=== PATIENT | male | born 1945 | race Caucasian/White ===

== ENCOUNTER → 2016-04-19 | Day surgery (SDC) | payer MEDICARE, OTHER ==
[~2016-04-19] VITALS: Ht 177.8 cm; Wt 95.3 kg
[~2016-04-19] MED LIST: ACETAMINOPHEN 325 MG TAB PO PRN; ACETYLCHOLINE OPHTH SOLN 1% 2ML As Ordered ONE; ACTO30TA7 PO; ASPI1TAB PO; ASPI81TA60 PO; AUGM875T27 PO; AcetaZOLAMIDE 500 MG ER CAP PO ONE; BALANCED SALT IRRIGATION SOL 500ML GLASS BOTTLE (FOR OR EYE COMPOUND) IR ONE; BSS with VANC/TOB/EPI for EYE CASES IR ONE; CORT10TA PO; COZA50TA PO; CRES40TA PO; CYCLOPENTOLATE 2% OPHTH SOLN OD ONE; EPINEPHrine INJ 1 MG/ML 1ML VIAL/AMP IR ONE; HEALON DUET (HEALON 10MG/ML 0.55ML & HEALON ENDOCOAT 30MG/ML 0.85ML) As Ordered ONE; HEALON DUET (HEALON 10MG/ML 0.55ML & HEALON ENDOCOAT 30MG/ML 0.85ML) XX ONE; JANU100T PO; JARD1TAB PO; KETOROLAC 0.5% OPHTH SOLN OD ONE; LIDOCAINE 1% SDV 5 ML VIAL As Ordered ONE; LIDOCAINE 1% SDV 5 ML VIAL XX ONE; LIDOCAINE 4% INJ 5 ML AMP OU ONE; METF500T4 PO; MIDAZOLAM INJ 2 MG/2 ML VIAL (J2250) As Ordered ONE; MOXIFLOXACIN IN BSS 0.25MG/0.25ML INTRACAMERAL INJ (OR EYE ONLY)(J2280) As Ordered ONE; MOXIFLOXACIN IN BSS 0.25MG/0.25ML INTRACAMERAL INJ (OR EYE ONLY)(J2280) ICAM ONE; NEXI20CA PO; NITR4TASL SL; OFLOXACIN 0.3 % (OCUFLOX) OPTH SOL 5ML OD ONE; PERC5TAB6 PO; PHENYLEPHRINE 2.5% OPHTH SOL 2ML OD ONE; POVIDONE-IODINE 5% OPHTH PREP SOL 30ML As Ordered ONE; PROPARACAINE 0.5% OPHTH SOL 15ML OD PRN; SYNT175T2 PO; TEST5GEL2 TD; TOBRAMYCIN INJ 80 MG/2 ML VIAL (J3260) XX ONE; TRIAMCINOLONE PRES FR 40 MG/ML 1ML(TRIESENCE)(OR EYE ONLY)(J3300 PER 1MG) As Ordered ONE; TRIAMCINOLONE PRES FR 40 MG/ML 1ML(TRIESENCE)(OR EYE ONLY)(J3300 PER 1MG) IO ONE; TRIMETHOBENZAMIDE 300 MG CAP PO PRN; TROPICAMIDE 1% OPHTH SOLN 2 ML OD ONE; VANCOMYCIN 1000 MG/20 ML VIAL (J3370) XX ONE; VITA500046 PO; ZETI10TA2 PO; ZOLO50TA PO; [UNRECOGNIZED DRUG - CODE] BUC; fentaNYL 100 MCG/2 ML INJECTION (J3010) As Ordered ONE
[2016-04-19 09:38] VITALS: BP 132/80
== END | disposition home or self-care (01) ==
LOC: M SDC 06:21
PROVIDERS: ATTEND Ophthalmology
DX: H26.9 Unspecified cataract (principal); I25.10 Atherosclerotic heart disease of native coronary artery without angina pectoris; Z95.5 Presence of coronary angioplasty implant and graft; I11.9 Hypertensive heart disease without heart failure; I49.5 Sick sinus syndrome; I35.8 Other nonrheumatic aortic valve disorders; I34.8 Other nonrheumatic mitral valve disorders; E78.00 Pure hypercholesterolemia, unspecified; E66.8 Other obesity; G47.33 Obstructive sleep apnea (adult) (pediatric); E11.9 Type 2 diabetes mellitus without complications; E03.9 Hypothyroidism, unspecified; F32.9 Major depressive disorder, single episode, unspecified; F41.9 Anxiety disorder, unspecified; E23.0 Hypopituitarism; Z79.899 Other long term (current) drug therapy; Z79.82 Long term (current) use of aspirin; F17.220 Nicotine dependence, chewing tobacco, uncomplicated; Z88.5 Allergy status to narcotic agent
CPT/HCPCS: 66984; J2250; J2280; J3010; J3260; J3300; J3370; V2632

== ENCOUNTER 2016-04-25 09:06 | Day surgery (SDC) | payer MEDICARE, OTHER ==
[~2016-04-25] VITALS: Ht 177.8 cm; Wt 95.0 kg
[~2016-04-25 09:06] MED LIST changes: -ACETYLCHOLINE OPHTH SOLN 1% 2ML As Ordered ONE; -AcetaZOLAMIDE 500 MG ER CAP PO ONE; -BALANCED SALT IRRIGATION SOL 500ML GLASS BOTTLE (FOR OR EYE COMPOUND) IR ONE; -CYCLOPENTOLATE 2% OPHTH SOLN OD ONE; +CYCLOPENTOLATE 2% OPHTH SOLN OS ONE; -EPINEPHrine INJ 1 MG/ML 1ML VIAL/AMP IR ONE; -KETOROLAC 0.5% OPHTH SOLN OD ONE; -LIDOCAINE 1% SDV 5 ML VIAL XX ONE; -MIDAZOLAM INJ 2 MG/2 ML VIAL (J2250) As Ordered ONE; -OFLOXACIN 0.3 % (OCUFLOX) OPTH SOL 5ML OD ONE; +OFLOXACIN 0.3 % (OCUFLOX) OPTH SOL 5ML OS ONE; -PHENYLEPHRINE 2.5% OPHTH SOL 2ML OD ONE; +PHENYLEPHRINE 2.5% OPHTH SOL 2ML OS ONE; -PROPARACAINE 0.5% OPHTH SOL 15ML OD PRN; +PROPARACAINE 0.5% OPHTH SOL 15ML OS PRN; -TOBRAMYCIN INJ 80 MG/2 ML VIAL (J3260) XX ONE; -TRIMETHOBENZAMIDE 300 MG CAP PO PRN; -TROPICAMIDE 1% OPHTH SOLN 2 ML OD ONE; +TROPICAMIDE 1% OPHTH SOLN 2 ML OS ONE; -VANCOMYCIN 1000 MG/20 ML VIAL (J3370) XX ONE; -fentaNYL 100 MCG/2 ML INJECTION (J3010) As Ordered ONE
[2016-04-25] MEDS ORDERED: D5W/0.2% SODIUM CHLORIDE 250 ML IV SCH (09:30)
[2016-04-25] MEDS ORDERED: MIDAZOLAM INJ 2 MG/2 ML VIAL (J2250) As Ordered ONE (09:35)
[2016-04-25] MEDS ORDERED: fentaNYL 100 MCG/2 ML INJECTION (J3010) As Ordered ONE (10:00)
[2016-04-25] MEDS ORDERED: KETOROLAC 0.5% OPHTH SOLN OS ONE (10:30)
[2016-04-25] MEDS ORDERED: AcetaZOLAMIDE 500 MG ER CAP PO ONE (10:30)
[2016-04-25] MEDS ORDERED: ONDANSETRON 4MG/2ML VIAL (J2405) IV PRN (10:30)
[2016-04-25] MEDS ORDERED: D5W/0.2% SODIUM CHLORIDE 1,000 ML IV SCH (10:30)
[2016-04-25] MEDS ORDERED: TRIMETHOBENZAMIDE 300 MG CAP PO PRN (10:30)
[2016-04-25 11:00] VITALS: BP 134/69
[2016-04-25] MEDS ORDERED: MOXIFLOXACIN IN BSS 0.25MG/0.25ML INTRACAMERAL INJ (OR EYE ONLY)(J2280) As Ordered ONE (11:01)
== END 2016-04-25 10:55 | disposition home or self-care (01) ==
LOC: M SDC 09:06
PROVIDERS: ATTEND Ophthalmology
DX: H26.9 Unspecified cataract (principal); I25.10 Atherosclerotic heart disease of native coronary artery without angina pectoris; Z95.5 Presence of coronary angioplasty implant and graft; I10 Essential (primary) hypertension; E11.9 Type 2 diabetes mellitus without complications; E03.9 Hypothyroidism, unspecified; G47.30 Sleep apnea, unspecified; F17.220 Nicotine dependence, chewing tobacco, uncomplicated; Z88.5 Allergy status to narcotic agent; Z79.899 Other long term (current) drug therapy; Z79.82 Long term (current) use of aspirin
CPT/HCPCS: 66984; J2250; J2280; J3010; J3300; V2632

== ENCOUNTER → 2016-12-19 | Outpatient (CLI) | payer MEDICARE, OTHER ==
[~2016-12-19] MED LIST changes: -ACETAMINOPHEN 325 MG TAB PO PRN; +ACTO30TA15 PO; -ACTO30TA7 PO; -AUGM875T27 PO; +AUGM875T28 PO; -BSS with VANC/TOB/EPI for EYE CASES IR ONE; -CYCLOPENTOLATE 2% OPHTH SOLN OS ONE; -HEALON DUET (HEALON 10MG/ML 0.55ML & HEALON ENDOCOAT 30MG/ML 0.85ML) As Ordered ONE; -HEALON DUET (HEALON 10MG/ML 0.55ML & HEALON ENDOCOAT 30MG/ML 0.85ML) XX ONE; -LIDOCAINE 1% SDV 5 ML VIAL As Ordered ONE; -LIDOCAINE 4% INJ 5 ML AMP OU ONE; -MOXIFLOXACIN IN BSS 0.25MG/0.25ML INTRACAMERAL INJ (OR EYE ONLY)(J2280) As Ordered ONE; -MOXIFLOXACIN IN BSS 0.25MG/0.25ML INTRACAMERAL INJ (OR EYE ONLY)(J2280) ICAM ONE; -OFLOXACIN 0.3 % (OCUFLOX) OPTH SOL 5ML OS ONE; +PERC5TAB12 PO; -PERC5TAB6 PO; -PHENYLEPHRINE 2.5% OPHTH SOL 2ML OS ONE; -POVIDONE-IODINE 5% OPHTH PREP SOL 30ML As Ordered ONE; -PROPARACAINE 0.5% OPHTH SOL 15ML OS PRN; -TRIAMCINOLONE PRES FR 40 MG/ML 1ML(TRIESENCE)(OR EYE ONLY)(J3300 PER 1MG) As Ordered ONE; -TRIAMCINOLONE PRES FR 40 MG/ML 1ML(TRIESENCE)(OR EYE ONLY)(J3300 PER 1MG) IO ONE; -TROPICAMIDE 1% OPHTH SOLN 2 ML OS ONE; -ZETI10TA2 PO; +ZETI10TA30 PO
--- NOTE | 2016-12-19 11:26 | REP ---
MR BRAIN WITHOUT AND WITH CONTRAST: HISTORY: Pituitary adenoma. CONTRAST: ProHance 8 mL. COMPARISON: 12/22/2015 Areas of increased signal intensity on T2-weighted images are present in the periventricular and subcortical white matter. This represents small vessel ischemic disease. There is no intraparenchymal hemorrhage, infarct, or midline shift. The ventricular system and cortical sulci are dilated consistent with minimal volume loss. There is no extracerebral collection. A pituitary adenoma with suprasellar extension is present. There is moderate homogeneous enhancement with contrast. The adenoma measures 3.5 cm in transverse x 3.1 cm in AP x 5.1 cm in cephalocaudal dimensions and is unchanged in size compared to the previous study. There is extension into the cavernous sinuses with encasement of the cavernous internal carotid arteries. There is extension into the sphenoid sinus and sphenoid bone. There is extension into the suprasellar cistern with marked compression of the optic chiasm. These findings are unchanged compared to the previous study. The ethmoid, maxillary, and frontal sinuses are clear. IMPRESSION: 1. Small vessel ischemic disease. 2. Minimal volume loss. 3. There has been no change in size of the pituitary adenoma compared to the previous study. Signed by Dawson Pritchard MD 12/19/2016 11:28 A
== END ==
LOC: M RAD 09:05
PROVIDERS: ATTEND Neurological Surgery
DX: D35.2 Benign neoplasm of pituitary gland (principal); I73.9 Peripheral vascular disease, unspecified; G93.9 Disorder of brain, unspecified
CPT/HCPCS: 70553; A9576

== ENCOUNTER → 2017-02-28 | Outpatient (CLI) | payer MEDICARE, OTHER ==
--- NOTE | 2017-02-28 09:18 | REP ---
Lumbar spine five views: Comparison is 07/10/2005. Vertebral body heights and alignment are normal. There is advanced degenerative intervertebral disc disease at L2-3 L3-4 that has significantly progressed. There is degenerative disc disease at L5 S1 that is unchanged. There is grade 1 anterolisthesis of L5, unchanged. No spondylolysis is identified. There is facet osteoarthritis throughout the lumbar spine. This has progressed. The sacroiliac articulations are unremarkable. There is mild scoliosis convex left. This is unchanged. Impression: Progressive degenerative disc disease at L2-3 L3-4. Stable degenerate disc disease at L5 S1. Degenerative grade 1 anterolisthesis of L5 without spondylolysis. Facet osteoarthritis. Signed by Maurice Poole MD 02/28/2017 09:05 A
== END ==
LOC: M RAD 08:26
PROVIDERS: ATTEND Family Medicine
DX: M51.36 Other intervertebral disc degeneration, lumbar region (principal); M51.37 Other intervertebral disc degeneration, lumbosacral region

== ENCOUNTER → 2017-07-17 | Outpatient (REF) | payer MEDICARE, OTHER | LOC: M LAB REF 09:56 | DX: D23.12 Other benign neoplasm of skin of left eyelid, including canthus (principal) | CPT/HCPCS: 88305 ==

== ENCOUNTER → 2018-04-08 | Outpatient (REF) | payer MEDICARE, OTHER ==
[2018-04-08 14:16] LABS: BLOOD UREA NITROGEN 20 MG/DL (7-18); CREATININE FOR GFR 1.09 MG/DL (0.70-1.30); GLOMERULAR FILTRATION RATE > 60.0 (>42)
== END ==
LOC: M LABNEURO 09:45
PROVIDERS: ATTEND Psychiatry & Neurology Neurology
DX: I10 Essential (primary) hypertension (principal)

== ENCOUNTER → 2018-04-26 | Outpatient (CLI) | payer MEDICARE, OTHER ==
[~2018-04-26] MED LIST changes: +PROHANCE 279.3MG/ML 15ML VIAL (A9576) As Ordered ONE; +PROHANCE 279.3MG/ML 5ML VIAL (A9576) As Ordered ONE
--- NOTE | 2018-04-26 13:56 | REP ---
MR BRAIN WITHOUT AND WITH CONTRAST: HISTORY: Pituitary adenoma. CONTRAST: ProHance 17 mL. COMPARISON: 12/22/2015 and 12/19/2016 Areas of increased signal intensity on T2-weighted images are present in the periventricular and subcortical white matter. This represents small vessel ischemic disease. There is no intraparenchymal hemorrhage, infarct, or midline shift. The ventricular system and cortical sulci are dilated consistent with minimal volume loss. There is no extracerebral collection. A pituitary adenoma is present. There is moderate homogeneous enhancement with contrast. The adenoma measures 3.5 cm in transverse x 3.1 cm in AP x 5.1 cm in cephalocaudal dimensions and is unchanged in size compared to the previous studies. There is extension into the cavernous sinuses with encasement of the cavernous internal carotid arteries. There is extension into the sphenoid sinus and sphenoid bone. There is suprasellar extension with marked compression of the optic chiasm. These findings are unchanged compared to the previous study. The ethmoid, maxillary and frontal sinuses are clear. IMPRESSION: 1. Small vessel ischemic disease. 2. Minimal volume loss. 3. There has been no change in size of the pituitary adenoma compared to the previous studies. Electronically Signed by Dawson Pritchard MD 04/26/2018 02:00 P
== END ==
LOC: M RAD 10:59
PROVIDERS: ATTEND Neurological Surgery
DX: D35.2 Benign neoplasm of pituitary gland (principal)
CPT/HCPCS: 70553; A9576

== ENCOUNTER → 2018-11-20 | Outpatient (CLI) | payer MEDICARE, OTHER ==
[~2018-11-20] MED LIST changes: -ASPI1TAB PO; +ASPI81TA26 PO; +METF-791 PO; -METF500T4 PO; -PROHANCE 279.3MG/ML 15ML VIAL (A9576) As Ordered ONE; -PROHANCE 279.3MG/ML 5ML VIAL (A9576) As Ordered ONE; +TEST25GE2 TD; -TEST5GEL2 TD; +ZETI10TA16 PO; -ZETI10TA30 PO
--- NOTE | 2018-11-20 11:57 | REP ---
MRI cervical spine without contrast: History: Rule out cervical spine stenosis. Neck pain and left shoulder pain. No comparison C-spine imaging. Technique: Sagittal and axial T1 and T2-weighted scans are acquired in the usual fashion with and without fat saturation. Sequences include spin echo, turbo spin-echo, and STIR imaging sequences. MRI findings: There is straightening of the normal cervical lordosis. There are advanced degenerative disc changes at each level from C4-5 through C6-7. There are reactive marrow changes about the C4-5 disc level. Axial and sagittal images at C4-5 demonstrate a 3 mm degenerative C4-5 spondylolisthesis due to advanced degenerative disc disease. There is diffuse disc bulging effacing the ventral subarachnoid space and flattening the ventral margin of the cord at this level. There is moderate central canal stenosis. Ligamentum flavum hypertrophy contributes to the spinal stenosis as well. No abnormal cord signal is seen. There is a large uncovertebral spurring developed on the right producing foraminal narrowing. Mild to moderate spurring is noted on the left. At C5-6, there is mild diffuse central disc bulging. Disc narrowing is seen. No cord compression is seen. At C6-7, there is diffuse posterior osteophytic ridging and disc bulging effacing the ventral margin of the thecal sac. No cord compression is seen. There is mild bilateral uncovertebral spurring at C6-7. The C7-T1 disc level shows uncovertebral spurring on the left. At C3-4, there is some facet hypertrophy and mild central disc bulging is present. Impression: Advanced degenerative spondylosis changes most pronounced at C4-5 where there is a 3 mm degenerative spondylolisthesis and where there is moderate central canal stenosis due to diffuse disc bulging and ligamentum flavum hypertrophy with cord compression. Uncovertebral spurring is present bilaterally more pronounced on the right. Electronically Signed by Cem Fofana MD 11/20/2018 12:12 P
== END ==
LOC: M RAD 08:49
PROVIDERS: ATTEND Orthopaedic Surgery
DX: M43.12 Spondylolisthesis, cervical region (principal); M50.222 Other cervical disc displacement at C5-C6 level; M50.223 Other cervical disc displacement at C6-C7 level; M50.21 Other cervical disc displacement, high cervical region; M47.812 Spondylosis without myelopathy or radiculopathy, cervical region

== ENCOUNTER → 2018-12-16 | Outpatient (CLI) | payer MEDICARE, OTHER ==
[~2018-12-16] MED LIST changes: +PROHANCE 279.3MG/ML 15ML VIAL (A9576) As Ordered ONE; +PROHANCE 279.3MG/ML 5ML VIAL (A9576) As Ordered ONE
--- NOTE | 2018-12-16 11:51 | REP ---
MRI lumbar spine without and with IV contrast: History: Scoliosis and spondylosis. Back pain for several months. Rule out disc herniation or stenosis. Comparison radiographs are from February 28, 2017. Gadolinium enhancement dose: 17 mL of intravenous ProHance. Technique: Sagittal and axial T1 and T2-weighted scans are acquired in the usual fashion with and without fat saturation. Sequences include spin echo, turbo spin-echo, and STIR imaging sequences. MRI findings: There is some straightening of the lumbar spine. There is a hemangioma on the right side of the L2 vertebral body measuring 18 mm in greatest diameter. There are reactive marrow changes on either side of the degenerated T11-12 disc space. There are also endplate irregularities and reactive marrow changes on either side of the degenerated L2-3 and L3-4 disc space. More mild degenerative disc changes are noted at L1-2 and L4-5. The L5-S1 disc space appears partially fused. Sagittal images at the T11-12 disc level demonstrate a fairly large central focal disc protrusion which extends caudally and which compresses the conus medullaris and displaces it posteriorly. The thecal sac has a midline AP dimension of 8 mm at this level there is evidence of a bilateral foraminal narrowing due to discogenic spurring and facet hypertrophy. At T12-L1, there is also advanced degenerative disc disease with disc bulging. There is ligamentum flavum hypertrophy. Central canal stenosis is noted. Midline AP dimension of the thecal sac at the T12-L1 is 7 mm. There is bilateral foraminal narrowing. At L1-L2, there is degenerative disc narrowing and diffuse disc bulging indenting the ventral margin of the thecal sac. There is a small hemangioma in the left posterior elements at L2 as well. Canal size is borderline. No foraminal narrowing is seen. At L2-L3, there is moderate central canal stenosis due to diffuse disc bulging, a left posterior focal disc protrusion, as well as ligamentum flavum and facet hypertrophy. There is a left laminectomy defect at L2-3. Right-sided ligamentum flavum and facet hypertrophy are seen. There is mild bilateral foraminal narrowing. At L3-4, there is a left laminectomy defect noted. Mild diffuse disc bulging and osteophytic ridging is seen. Mild bilateral foraminal narrowing is noted. Borderline canal size. At L4-L5, there is a small central focal disc protrusion indenting the ventral margin of the thecal sac. Canal size is borderline. Ligamentum flavum and facet hypertrophy are present bilaterally. There is mild foraminal narrowing bilaterally. At L5-S1, there is no focal disc protrusion. Facet hypertrophy is noted but facet joints appear to be fused. Postcontrast images demonstrate enhancement associated with the degenerative disc disease changes at T11-12, T12-L1, L2-3 and L3-4. Impression: Advanced degenerative spondylosis changes. Post laminectomy on the left L2-3 and L3-4. Multilevel neural foraminal narrowing. Central canal stenosis at T11-12 and T12-L1 as well as L2-3. Electronically Signed by Cem Fofana MD 12/16/2018 12:08 P
== END ==
LOC: M RAD 08:48
PROVIDERS: ATTEND Orthopaedic Surgery
DX: M41.9 Scoliosis, unspecified (principal); M51.36 Other intervertebral disc degeneration, lumbar region; M47.896 Other spondylosis, lumbar region; M48.04 Spinal stenosis, thoracic region; M48.061 Spinal stenosis, lumbar region without neurogenic claudication; M51.26 Other intervertebral disc displacement, lumbar region
CPT/HCPCS: 72158; A9576

== ENCOUNTER → 2018-12-23 | Outpatient (REF) | payer MEDICARE, OTHER ==
[~2018-12-23] MED LIST changes: -PROHANCE 279.3MG/ML 15ML VIAL (A9576) As Ordered ONE; -PROHANCE 279.3MG/ML 5ML VIAL (A9576) As Ordered ONE
== END ==
LOC: M LABDRAW1 10:22
PROVIDERS: ATTEND Orthopaedic Surgery
DX: M47.892 Other spondylosis, cervical region (principal)

== ENCOUNTER → 2019-04-24 | Outpatient (CLI) | payer MEDICARE, OTHER ==
--- NOTE | 2019-04-24 11:16 | REPVR ---
PROCEDURE INFORMATION: Exam: MR Head Without Contrast Exam date and time: 04/24/2019 9:40 AM Age: 73 years old Clinical indication: Condition or disease; Brain tumor; Neoplasm of brain, not specified; Patient HX: Adenoma of pituitary TECHNIQUE: Imaging protocol: MR of the head without contrast. COMPARISON: MRI-Brain W/O FOLL BY WITH 04/26/2018 12:30 PM FINDINGS: Brain: No acute infarction, acute hemorrhage or midline shift is seen. There is minimal patchy increased T2 signal intensity within the bilateral cerebral periventricular white matter, consistent with chronic microvascular ischemic changes. There are few small focal areas of chronic ischemia in bilateral frontal, parietal and periatrial white matter. There is no abnormal diffusion weighted signal intensity to suggest an acute ischemic event. Ventricles: The ventricular system is not dilated and is appropriate for the patient's age. Bones/joints: Unremarkable. Soft tissues: Unremarkable. Sinuses: No sinusitis. Mastoid air cells: Normal as visualized. No mastoid effusion. Orbits: Unremarkable. Sella: Examination reveals stable appearance of the large pituitary macroadenoma measuring approximately 5.4 x 3.5 x 2.9 cm in dimensions. There is suprasellar extension causing marked compression on the optic chiasm. There is lateral extension into bilateral cavernous sinus with encasement and lateral displacement of the bilateral cavernous internal carotid arteries . There is inferior extension into the sphenoid sinus. Overall the appearance is unchanged since the previous study. IMPRESSION: 1. Examination reveals stable appearance of the large pituitary macroadenoma measuring approximately 5.4 x 3.5 x 2.9 cm in dimensions. There is suprasellar extension causing marked compression on the optic chiasm. There is lateral extension into bilateral cavernous sinus with encasement and lateral displacement of the bilateral cavernous internal carotid arteries . There is inferior extension into the sphenoid sinus. Overall the appearance is unchanged since the previous study. 2. No acute infarction, acute hemorrhage or midline shift is seen. Electronically signed by: David Clinton On 04/24/2019 11:16:41 AM
== END ==
LOC: M RAD 08:29
PROVIDERS: ATTEND Neurological Surgery
DX: D36.9 Benign neoplasm, unspecified site (principal)

== ENCOUNTER → 2019-12-30 | Outpatient (REF) | payer MEDICARE, OTHER ==
[~2019-12-30] MED LIST changes: +ADVA230A INH; +BYDU1INJ SC; +CEPH500C PO; +D 50CAP2 PO; +ELIQ5TAB PO; +FLAX1CAP5 PO; +LEVO2TA PO; +LIDO5TD TOP; -METF-791 PO; +METF-838 PO; +MIRA0.5T PO; +NAPR220C14 PO; +OMEP-221 PO; +PIOG1TAB36 PO; +SERT-138 PO; +TRAM50TA2 PO; +VENTAER INH
[2019-12-30 15:09] LABS: CREATININE, URINE 65.1 MG/DL; MALB URINE SIEMENS 9.3 MG/L; MAU/CREAT RATIO 14.2 MCG/MG (0.0-30.0)
== END ==
LOC: M LAB REF 12:49
PROVIDERS: ATTEND Internal Medicine Endocrinology, Diabetes & Metabolism
DX: E11.9 Type 2 diabetes mellitus without complications (principal)

== ENCOUNTER 2020-01-17 09:56 | Emergency (ER) | payer MEDICARE, OTHER ==
[~2020-01-17] VITALS: Ht 175.3 cm; Wt 90.9 kg
[~2020-01-17 09:56] MED LIST changes: -ADVA230A INH; -BYDU1INJ SC; -CEPH500C PO; -D 50CAP2 PO; -ELIQ5TAB PO; -FLAX1CAP5 PO; -LEVO2TA PO; -LIDO5TD TOP; -MIRA0.5T PO; -NAPR220C14 PO; -OMEP-221 PO; -PIOG1TAB36 PO; -SERT-138 PO; -TRAM50TA2 PO; -VENTAER INH
[2020-01-17] MEDS ORDERED: FLAX1CAP5 PO (10:15)
[2020-01-17] MEDS ORDERED: NAPR220C14 PO (10:15)
[2020-01-17] MEDS ORDERED: ELIQ5TAB PO (10:15)
[2020-01-17] MEDS ORDERED: ONDANSETRON 4MG/2ML VIAL IV ONE (10:15)
[2020-01-17] MEDS ORDERED: BYDU1INJ SC (10:15)
[2020-01-17] MEDS ORDERED: OMEP-221 PO (10:15)
[2020-01-17] MEDS ORDERED: MIRA0.5T PO (10:15)
[2020-01-17 10:42] LABS: BASO # 0.1 10^3/uL (0.0-0.2); BASO % 0.7 % (0.0-1.0); EOS # 0.2 10^3/uL (0.0-0.5); EOS % 1.3 % (0.0-3.0); HEMATOCRIT 44.9 % (42.0-52.0); HEMOGLOBIN 13.6 g/dl (13.5-17.5); LYMPH # 1.1 10^3/uL (1.5-5.0); LYMPH % 7.6 % (24.0-44.0); MEAN CORPUSCULAR HEMOGLOBIN 21.8 pg (27.0-33.0); MEAN CORPUSCULAR HGB CONC 30.3 g/dl (32.0-36.5); MONO # 1.7 10^3/uL (0.0-0.8); MONO % 12.1 % (0.0-5.0); NEUTROPHILS # 10.8 10^3/uL (1.5-8.5); NEUTROPHILS % 75.5 % (36.0-66.0); PLATELET COUNT, AUTOMATED 361 10^3/uL (150-450); RED BLOOD COUNT 6.24 10^6/uL (4.30-6.10); WHITE BLOOD COUNT 14.3 10^3/uL (4.0-10.0)
[2020-01-17] MEDS ORDERED: DEXTROSE 50% 50 ML SYRINGE IV STA (10:52)
[2020-01-17 10:53] LABS: INR 1.41; PROTHROMBIN TIME 17.6 SECONDS (12.5-14.3)
[2020-01-17 10:54] LABS: PARTIAL THROMBOPLASTIN TIME 42.9 SECONDS (24.2-38.5)
[2020-01-17] MEDS ORDERED: CEPH500C PO (11:00)
[2020-01-17] MEDS ORDERED: ISOVUE-370 76% 100ML VIAL As Ordered ONE (11:03)
--- NOTE | 2020-01-17 11:03 | REP ---
INDICATION: back pain. COMPARISON: Comparison chest x-ray June 04, 2009.. TECHNIQUE: Portable AP semi are act chest. FINDINGS: Monitoring electrodes are seen. The lungs are exposed today lower level of inspiration than on the prior study. Interstitial and vascular markings therefore somewhat crowded. There is no evidence of pleural effusion or focal infiltrate. Cardiomediastinal silhouette is unremarkable. IMPRESSION: Low level of inspiration. No infiltrate, effusion, or edema seen. <Electronically signed by Steven Fofana > 01/17/20 [id number]
[2020-01-17] MEDS ORDERED: MORPHINE 2 MG/ML 1ML VIAL (J2270) IV PRN (11:15)
[2020-01-17 11:20] LABS: ALBUMIN 3.1 GM/DL (3.2-5.2); BILIRUBIN,DIRECT 0.4 MG/DL (0.0-0.2); TOTAL PROTEIN 7.4 GM/DL (6.4-8.2)
[2020-01-17] MEDS ORDERED: PIPERACILLIN/TAZOBACTAM SOD 4.5 GM in D5W MINI-BAG PLUS 50 ML IV ONE (11:30)
[2020-01-17] MEDS ORDERED: NS 1,000 ML IV ONE (11:30)
--- NOTE | 2020-01-17 11:56 | REP ---
INDICATION: severe back pain. Low abdomen pain as well. COMPARISON: None. TECHNIQUE: Helical scanning is acquired post contrast. 3 mm axial images re-formatted. Coronal and sagittal MPR images are generated. Coronal MIP images are generated. The contrast enhancement dose is 100 mL of intravenous Isovue 370. 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 There is a small amount of left pleural fluid. No focal infiltrate is appreciated. There is discoid atelectasis in the left lower lobe. There is good opacification of the pulmonary arterial tree and the thoracic aorta and no vascular abnormality is observed. No hilar or mediastinal mass or adenopathy is seen. Bone window settings demonstrate mild diffuse degenerative disc disease in the thoracic spine. There is respiratory motion at the level of the distal sternum. No fracture is seen. At the T11-12 and T12-L1 disc levels, there is evidence of degenerative disc disease with sclerosis and disc space narrowing and anterior osteophyte formation. However, there are large erosions of the endplates on either side of both of these discs and there is paravertebral soft tissue edema. There is a mottled mixed pattern of lucency and sclerosis. The endplate erosions and soft tissue edema appear to be new when compared with the MRI study from December 16, 2018. The changes at T11-12 are new compared to the radiographs from February 28, 2017. Findings are felt to be suggestive of infectious discitis. Suggest repeat MRI study at the lumbosacral junction. It is difficult to assess the possibility of epidural disease or and/or spinal canal impingement. there are some erosive facet arthropathy changes on the left at T11-T12. IMPRESSION: There is discoid atelectasis in the left lower lobe. A small amount of left pleural fluid is seen. In addition, there are progressive and erosive changes with mixed lucency and sclerosis in and about the endplates at T11-12 and T12-L1. There is Coni vertebral soft tissue edema at this level and the findings are suggestive of infectious discitis at these 2 levels. No david abscess is appreciated. Consider lumbar spine MRI study at the thoracolumbar junction. <Electronically signed by Steven Fofana > 01/17/20 [id number]
--- NOTE | 2020-01-17 12:01 | REP ---
INDICATION: severe back pain and low abd - also look at spine too please. COMPARISON: Comparison lumbar spine radiographs February 28, 2017. Comparison MRI lumbar spine December 16, 2018.. TECHNIQUE: Helical scanning was acquired and 4 mm axial images are re-formatted. Coronal and sagittal MPR images were generated and reviewed. The contrast enhancement dose is 100 mL of intravenous Isovue 370. 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 There are granulomatous calcifications scattered in the spleen. A small quantity of left pleural fluid is noted. Bibasilar discoid atelectatic changes are seen. The gallbladder is mildly distended but otherwise intact. No abnormality is noted in the pancreas. Normal adrenal glands are seen. Large bowel loops are unremarkable in the abdomen and pelvis. A Ann catheter is seen in the urinary bladder. Small and large bowel loops are unremarkable. No obstructive lesion is seen. A few filled loops of air-filled borderline caliber small bowel are seen in the central abdomen. The kidneys enhance symmetrically and are morphologically intact. 1 normal caliber aorta. Multilevel degenerative disc disease is noted. Progressive changes at T11-12 and T12-L1 as described in the chest CT report are seen suggestive of acute infectious discitis. These changes include a mottled mixed pattern of radiolucency and sclerosis, progressive erosive changes involving these 2 endplates, and paravertebral soft tissue swelling/edema. No abscess is seen. No other acute bony abnormality is appreciated. IMPRESSION: Mild ileus pattern the bowel gas. Ann catheter. Findings suggestive of acute discitis pattern [id number] as described in the chest CT report. No david abscess. <Electronically signed by Steven Fofana > 01/17/20 [id number]
[2020-01-17] MEDS ORDERED: TEST25GE2 TD (12:04)
[2020-01-17] MEDS ORDERED: LEVO2TA PO (12:04)
[2020-01-17] MEDS ORDERED: D 50CAP2 PO (12:04)
[2020-01-17] MEDS ORDERED: PIOG1TAB36 PO (12:04)
[2020-01-17] MEDS ORDERED: SERT-138 PO (12:04)
[2020-01-17] MEDS ORDERED: VENTAER INH (12:07)
[2020-01-17] MEDS ORDERED: ADVA230A INH (12:07)
[2020-01-17] MEDS ORDERED: TRAM50TA2 PO (12:07)
[2020-01-17] MEDS ORDERED: LIDO5TD TOP (12:07)
[2020-01-17] MEDS ORDERED: ALBUTEROL SULFATE 2.5 MG/0.5 ML INH NEB SOLN INH ONE (12:15)
[2020-01-17] MEDS ORDERED: IPRATROPIUM 0.5MG/ALBUTEROL 2.5MG INH SOL UD 3ML (DUONEB) NEB ONE (12:15)
[2020-01-17] MEDS ORDERED: VANCOMYCIN HCL 1,750 MG in D5W 250 ML IV ONE (12:30)
[2020-01-17] MEDS ORDERED: methylPREDNISolone 40MG 1ML VIAL IV ONE (12:45)
[2020-01-17] MEDS ORDERED: VANCOMYCIN HCL 1,000 MG, VIAL MATE ADAPTER 1 EACH in D5W 250 ML IV ONE (13:00)
[2020-01-17 13:53] VITALS: BP 152/67
[2020-01-17] MEDS ORDERED: VANCOMYCIN HCL 750 MG, VIAL MATE ADAPTER 1 EACH in D5W 250 ML IV ONE (14:00)
--- NOTE | 2020-01-17 21:53 | ECGEPIP ---
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
== END 2020-01-17 14:01 | disposition short-term general hospital (02) ==
LOC: EDBD 09:56 → M ED 09:56
DX: R78.81 Bacteremia (principal); M46.45 Discitis, unspecified, thoracolumbar region; R91.8 Other nonspecific abnormal finding of lung field; I10 Essential (primary) hypertension; E78.5 Hyperlipidemia, unspecified; G47.30 Sleep apnea, unspecified; E11.9 Type 2 diabetes mellitus without complications; K21.9 Gastro-esophageal reflux disease without esophagitis; Z88.6 Allergy status to analgesic agent; Z79.01 Long term (current) use of anticoagulants; Z79.899 Other long term (current) drug therapy
CPT/HCPCS: 36600; 71045; 71275; 74177; 80047; 80076; 81001; 82803; 83605; 83690; 84484; 85025; 85610; 85730; 86850; 86900; 86901; 87040; 93005; 93041; 94640; 96365; 96366; 96367; 96375; 99285; J2270; J2405; J2543; J2920; J3370; Q9967

== ENCOUNTER 2020-01-26 13:00 | Inpatient (IN) | payer MEDICARE, OTHER ==
[~2020-01-26] VITALS: Ht 175.3 cm; Wt 85.0 kg
[~2020-01-26 13:00] MED LIST changes: +ADVA230A INH; +BYDU1INJ SC; +CEPH500C PO; +D 50CAP2 PO; +ELIQ5TAB PO; +FLAX1CAP5 PO; +LEVO2TA PO; +LIDO5TD TOP; +MIRA0.5T PO; +NAPR220C14 PO; +OMEP-221 PO; +PIOG1TAB36 PO; +SERT-138 PO; +TRAM50TA2 PO; +VENTAER INH
[2020-01-26 15:15] VITALS: BP 98/61
[2020-01-26] MEDS ORDERED: CEFTINJ2 IV (15:29)
[2020-01-26] MEDS ORDERED: FOLI1TAB11 PO (15:29)
[2020-01-26] MEDS ORDERED: AMLO1TAB24 PO (15:29)
[2020-01-26] MEDS ORDERED: MULTCAP PO (15:29)
[2020-01-26] MEDS ORDERED: SENN-80 PO (15:29)
[2020-01-26] MEDS ORDERED: BISA10SU4 PR (15:29)
[2020-01-26] MEDS ORDERED: FURO20TA2 PO (15:29)
[2020-01-26] MEDS ORDERED: LOSA100T50 PO (15:29)
[2020-01-26] MEDS ORDERED: DOCU100C16 PO (15:29)
[2020-01-26] MEDS ORDERED: NITROGLYCERIN 0.4 MG SUBL TABLET SL PRN (16:00)
[2020-01-26] MEDS ORDERED: CEFT2INJ4 IV (16:07)
[2020-01-26] MEDS ORDERED: DEXTROSE 50% 50 ML SYRINGE IV PRN (16:45)
[2020-01-26] MEDS ORDERED: GLUCOSE 4GM CHEW TABLET PO PRN (16:45)
[2020-01-26] MEDS ORDERED: GLUCAGON INJ 1MG VIAL SC PRN (16:45)
[2020-01-26] MEDS ORDERED: cefTRIAXone SOD 2 GM in D5W MINI-BAG PLUS 50 ML IV SCH (17:00)
[2020-01-26] MEDS ORDERED: ALBUTEROL 90 MCG/ACT 8GM HFA INHALER INH PRN (17:00)
[2020-01-26] MEDS ORDERED: tiZANidine 4 MG TAB PO PRN ×2 (17:15)
[2020-01-26] MEDS ORDERED: PILL CUTTER 1 EACH XX PRN (17:30)
[2020-01-26] MEDS: cefTRIAXone SOD 2 GM in D5W MINI-BAG PLUS 50 ML IV SCH (17:54)
[2020-01-26] MEDS: HumaLOG INSULIN (NovoLOG) PER UNIT SC SCH (17:54)
[2020-01-26] MEDS: SODIUM CHLORIDE 0.9% INJ 10 ML SYR IV SCH (17:56)
--- NOTE | 2020-01-26 18:32 | HPEPDOC ---
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 Group B strep bacteremia. Sleep apnea. Anemia. Diabetes last hemoglobin A1c 7.3 12/30/2019 Endocrine dysfunction s/p resection pituitary adenoma Hypothyroidism. History Hyponatremia. Atrial fibrillation. History of hematuria secondary to traumatic Ann placement. Essential hypertension. HLD. CAD s/p 2 prior stents Status posts hypoxemic respiratory failure. Tick bite Probable candidiasis CHIEF COMPLAINT: Back pain. 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 He was seen in [facility] January 11. [place] to have infection secondary to group B strep, discharged home with with P.O. Keflex. He worsened and had severe AMS and was then seen at [facility] for severe back pain, delerium with white blood count of 14, CT abdomen and pelvis showed signs concerning for discitis and he was transferred January 16 to [facility] for higher level of care. Ruled out for NC with negative troponins, incidental finding of 1.4 x 0.9 cm hypoechoic structure left kidney noted on ultrasound. Workup included MRI 01/17 revealed a T11-T12 discitis with prevertebral phlegmon versus abscess, lumbar biopsy performed. Additionally noted was severe degenerative disc disease T12- L4, L5, S1 with abnormal vertebral marrow signal T11-12, likely due to bone e [place] and infection, clumping of the cauda equina nerve roots and severe narrowing of the central canal due to disc bulge and posterior osteophytes, CT angiogram chest and chest x-ray noted for diffuse nonspecific prominence of pulmonary insufficiency. 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 ID recommended IV ceftriaxone for 14 days then Min dose reduction on January 31 for an additional 4 weeks. Picc line placed for maintaining IV Access. Pain management was challenging requiring fentanyl, morphine and oxycodone, now more stabilized at time of transfer. Constipation was a significant problem, however he managed to have a BM just prior to transfer. Patient was able to participate with therapies and is now admitted to acute rehabilitation for strengthening, endurance and safety issues. REVIEW OF SYSTEMS: The following is a completed review of systems and has been reviewed. Review of systems otherwise unremarkable. PAIN: Low back and left more than right lower extremity EYES: double vision, uses prism glasses since brain surgery EARS, NOSE, & THROAT: No throat pain, or dysphagia, or rhinorrhea. CARDIOVASCULAR: Denies chest pain or palpitations. PULMONARY: Denies shortness of breath. GASTROINTESTINAL: Last BM prior to discharge was January 21 GENITOURINARY: .microscopic hematuria MUSCULOSKELETAL: . Severe low back pain, improving NEUROLOGICAL:. Status post recent episode of encephalopathy related to sepsis, now clearing HEMATOLOGICAL: Anemic, fatigued SKIN: .Had Tick bite on presentation, no target lesions, does have irritating interiginous rash PSYCHIATRIC: Unremarkable All other review of systems found to be negative. PAST MEDICAL HISTORY: A. fib managed with Eliquis Depression. Anxiety. Diabetes. Adrenal insufficiency noted treated with hydrocortisone CAD s/p stent x 2 PAST SURGICAL HISTORY: Appendectomy. Brain surgery-reported pituitary adenoma with partial resection, residual, adrenal insufficiency. Spine surgery s/p LS fusion for spondylolisthesis, and subsequent discectomy for HNP approximately 2015 CAD s/p stent x 2 Carpal tunnel release ALLERGIES: Please see below. Records note, gabapentin, KRYSTYNA inhibitors and codeine. However, patient is able to tolerate fentanyl and oxycodone and tramadol MEDICATIONS: Please see below. SOCIAL HISTORY: non- Smoker, no EtOH, lives in a 3 step entrance 2 story home with his . DIET: . Regular PHYSICAL EXAMINATION: VITAL SIGNS: Please see below. GENERAL: Pleasant and cooperative. No acute distress. Alert and oriented times three. HEENT: PERRL. Extraocular movements intact. Clear conjunctiva, no adenopathy or thyromegaly. Full cervical range of motion Tenderness cervicothoracic region. CARDIOVASCULAR: S1 S2 regular LUNGS: Clear to auscultation bilaterally. No wheezes. No rhonchi. ABDOMEN: Soft, nontender, nondistended. Positive normal active bowel sounds. NEUROLOGICAL: Able to spell WORLD forward, unable to spell backward, able to deduct 7 from 100, unable to go further. Cranial nerves II through XII grossly intact. Sensation intact all 4 extremities. Reflexes 2+ right biceps, brachioradialis, absent triceps, 1+ patellar tendon jerks,. EXTREMITIES: 5/5 box tender, elbow flexion, elbow extension, knee extension, foot dorsiflexion, plantar flexion. Able to elevate arms 130 degrees FF. SKIN: .Picc left inner arm. Wide plaque like reddened intertriginous and peroneal regions LABORATORY DATA: Please see below. IMAGING:Imaging documentation personally reviewed by record. FUNCTIONAL STATUS: Premorbid: Independent with all activities of daily life as well as mobility. On Admission: . GOALS: ASSESSMENT:74 year-old right handed gentleman with past medical history of cortisone dependent endocrine deficiencies s/p remote resection of pituitary adenoma hat developed severe backpain with left lower extremity pain and generalized sepsis, failed conservative oral antibiotics for group B Strep as an outpatient prescribed after presentation at [facility] Jan 11, returned to [facility] and was referred to [facility] on for deterioration with encephalopathy, leukocytosis and eventual CT Guided lumbar biopsy 01/18 confirmed T11-T12 discitis, reportedly cultures no growth (was on antibiotics) however imaging did demonstrate Phlegmon vs abscess. Here for comprehensive rehabilitation, pain management and completion of IV antibiotics, monitoring closely for S/Sx of neurological deterioration. PLAN: 1. Rehab- PT/OT advance gait and ADls, strengthen/stretch/maintain ROM all 4 limbs. We'll continue to work on timing pain medication with therapy interventions to optimize possible capacity to participate. 2. Neuro- clearing encephalopathy, polyradiculopathy, hx LEYLA-will need sleep study 3. Ortho- T11-12 Discitis/osteomyelitis with probable cauda equina syndrome, DDD s/p prior spine stabilization, continue IV Ceftriaxone begun 01/17 for 2 weeks at current dose, then additional 4 weeks at reduced dose. Pain management with modalities, medications, addition of tizanidine for mm spasm. 4. Cardiac- hx of CAD with Stents, afib, stable -HTN -amlodipine -HLD- c/u statins 5. Resp -s/p hypoxia/respiratory failure during sepsis, now clear and stable on room air, continue incentive spirometry, monitor for infection 6. Endo- hx of post resection of pituitary adenoma with DM, hypothyroid, adrenal insufficiency, c/u insulin and ISS, thyroid replacement, steroids, family to bring in Testosterone supplementation. 7. - episodic hematuria, incidental finding of renal ?cysts, monitor UA and output, PVR, bladder training if indicated. 8. GI ppx- s/p constipation, possible mild neurogenic bowel component, continue laxatives, history electrolyte imbalance, monitor and supplement as indicated. On steroids, at risk GI irritation. 9. Skin-nystatin creme then powder, air out skin areas 10. Anemia-monitor, supplement as indicated POST ADMISSION PHYSICIAN EVALUATION: Medical and functional status: Description of medical status, medical assessment: As above. Rehabilitation diagnosis and current and prior cold morbid medical conditions as above. Risk of complications and plans to mitigate them as above. Description of functional status current status is as above. Prior status as above. Status compared to preadmission: There are no clinically significant differences between the patient's current status and the information described on the preadmission screening document. Treatment plan anticipated: Treatment plan is as described above. Required disciplines including physical therapy, occupational therapy, others as noted above]. Intensity of services: 3 hours a day, 7 days a week. Special considerations: There are no specific special or safety considerations that would likely preclude immediate implementation of an intensive rehabilitation program or subsequently influence the plan of care. ATTESTATION: Considering all the information above, it is my best judgment that this patient requires intensive rehabilitation therapy as described above and an inpatient hospital environment due to the complexity of nursing, medical, and rehabilitation needs required by the patient. Furthermore, this patient can reasonably be expected to participate in an benefit from an inpatient rehabilitation stay with an interdisciplinary team approach to the delivery of rehabilitation care under the direction and supervision of rehabilitation physician. PROGNOSIS: Excellent. ESTIMATED LENGTH OF STAY:7 10 days. PROJECTED DISCHARGE DESTINATION: Home with family support and any durable medical equipment required to increase functional safety and mobility. TIME SPENT COUNSELING AND COORDINATING INITIAL CARE: Greater than 60 minutes. This document is generated using speech recognition software which may result in grammatical, typographical and individual word errors. Vital Signs Vital Sign - Last 24 Hours 01/26/20 15:15 Temp 96.9 Pulse 72 Resp 20 B/P (MAP) 98/61 (73) Pulse Ox 100 O2 Delivery Room Air Laboratory Data Labs 24H Laboratory Tests 2 01/26/20 16:49: Bedside Glucose (Misc Panel) 103 FSBS Laboratory Tests Test 01/26/20 16:49 Range/Units Bedside Glucose (Misc Panel) 103 83-110 MG/DL Home Medications Scheduled Amlodipine Besylate (Amlodipine Besylate) 5 Mg Tablet, 5 MG PO DAILY, (Reported) Apixaban (Eliquis) 5 Mg Tablet, 5 MG PO BID, (Reported) Ceftriaxone in Is-Osm Dextrose (Ceftriaxone 2 gm-D5w Bag) 2 Gm/50 Ml Piggyback, 2 GM IV Q12H, (Reported) Cholecalciferol (Vitamin D3) (Vitamin D3) 125 Mcg Capsule, 125 MCG PO QHS, (Reported) Docusate Sodium (Docusate Sodium) 100 Mg Capsule, 100 MG PO BID, (Reported) Empagliflozin (Jardiance) 10 Mg Tab, 10 MG PO DAILY, (Reported) Exenatide Microspheres (Bydureon) 2 Mg/0.65 Ml Pen.injctr, 2 MG SC 1XWK, (Reported) WEDNESDAYS Ezetimibe (Zetia) 10 Mg Tab, 10 MG PO QHS, (Reported) Flaxseed Oil (Flaxseed Oil) 1,000 Mg Capsule, 1,000 MG PO QHS, (Reported) Fluticasone Propion/Salmeterol (Advair Hfa 230-21 Mcg Inhaler) 12 Gm Hfa.aer.ad, 2 PUFF INH BID, (Reported) Folic Acid (Folic Acid) 1 Mg Tablet, 1 MG PO DAILY, (Reported) Furosemide (Furosemide) 20 Mg Tablet, 20 MG PO DAILY, (Reported) Hydrocortisone (Cortef) 10 Mg Tab, 10 MG PO DAILY, (Reported) @ NOON Hydrocortisone (Cortef) 10 Mg Tab, 15 MG PO QAM, (Reported) Levothyroxine Sodium (Synthroid) 200 Mcg Tablet, 200 MCG PO DAILY, (Reported) Lidocaine (Lidocaine) 5% Adh..patch, 1 PATCH TOP DAILY, (Reported) APPLY TO LOWER BACK Losartan Potassium (Losartan Potassium) 100 Mg Tablet, 100 MG PO DAILY, (Reported) Multivitamin (Multivitamins) 1 Each Capsule, 1 CAP PO DAILY, (Reported) Pioglitazone HCl (Pioglitazone HCl) 15 Mg Tablet, 15 MG PO DAILY, (Reported) Pramipexole Di-HCl (Mirapex) 0.5 Mg Tablet, 0.5 MG PO BID, (Reported) Rosuvastatin Calcium (Crestor) 40 Mg Tab, 40 MG PO QHS, (Reported) Sennosides (Senna) 8.6 Mg Tablet, 16.2 MG PO QHS, (Reported) Sertraline HCl (Sertraline HCl) 100 Mg Tablet, 150 MG PO DAILY, (Reported) Testosterone (Testosterone) 2.5 Gm Gel.packet, 25 MG TD DAILY, (Reported) APPLY TO STOMACH Scheduled PRN Albuterol Sulfate (Ventolin Hfa) 18 Gm Hfa.aer.ad, 2 PUFF INH Q4H PRN for SOB/WHEEZING, (Reported) Bisacodyl (Bisacodyl) 10 Mg Supp.rect, 10 MG AR DAILY PRN for CONSTIPATION, (Reported) Nitroglycerin (Nitrostat) 0.4 Mg Subl, 0.4 MG SL NITRO PRN for CHEST PAIN, (Reported) Tramadol HCl (Tramadol HCl) 50 Mg Tablet, 50 MG PO Q6H PRN for PAIN, (Reported) Allergies Coded Allergies: codeine (Verified Allergy, Intermediate, Rash, 01/17/20) gabapentin (Verified Adverse Reaction, Intermediate, JITTERY, 01/17/20) A-FIB/CHADSVASC A-FIB History Current/History of A-Fib/PAF?: No Current PO Anticoag Therapy: Yes Age/Risk Factor Scoring CHADSVASC: CHADSVASC Response (Comments) Value Age Risk Factor Age 65-74 years old 1 Gender Risk Factor Male 0 Hx of CHF No 0 Hx of HTN Yes 1 Hx of Stroke/TIA/or VTE No 0 Hx of Diabetes Yes 1 Hx of Vascular Disease Yes 1 Total 4 FATMATA DHALIWAL MD Jan 26, 2020 18:32
[2020-01-26] MEDS: ADVAIR HFA 230/21MCG INHALER INH SCH (19:13)
[2020-01-26 20:30] VITALS: BP 142/68
[2020-01-26] MEDS: NYSTATIN CREAM 15 GM TOP SCH (20:37)
[2020-01-26] MEDS: APIXABAN 5 MG TAB (ELIQUIS) PO SCH (20:37)
[2020-01-26] MEDS: ROSUVASTATIN 10 MG TAB (CRESTOR) PO SCH (20:37)
[2020-01-26] MEDS: EZETIMIBE 10 MG TAB (ZETIA) PO SCH (20:37)
[2020-01-26] MEDS: SENNA 8.6 MG TAB (SENOKOT) PO SCH (20:37)
[2020-01-26] MEDS: DOCUSATE SODIUM 100 MG CAP PO SCH (20:37)
[2020-01-26] MEDS: PRAMIPEXOLE 0.25 MG TAB PO SCH (20:38)
[2020-01-26] MEDS: **NOTE PATIENT COMMENT** MISC XX SCH (20:45)
[2020-01-26] MEDS: traMADol 50 MG TAB PO PRN (20:51)
[2020-01-27] MEDS: SODIUM CHLORIDE 0.9% INJ 10 ML SYR IV PRN ×2 (05:03→17:01)
[2020-01-27] MEDS: cefTRIAXone SOD 2 GM in D5W MINI-BAG PLUS 50 ML IV SCH ×2 (05:03→16:11)
[2020-01-27] MEDS: traMADol 50 MG TAB PO PRN (05:14)
[2020-01-27 05:35] VITALS: BP 141/88
[2020-01-27] MEDS: LEVOTHYROXINE 100MCG TABLET (0.1MG) PO SCH (05:45)
[2020-01-27 06:11] LABS: APPEARANCE, URINE HAZY (CLEAR); BACTERIA, URINE AUTO NEGATIVE (NEGATIVE); BILIRUBIN, URINE AUTO NEGATIVE (NEGATIVE); BLOOD, URINE BLOOD 1+ (NEGATIVE); COLOR, URINE YELLOW (YELLOW); GLUCOSE, URINE (UA) AUTO 1+ mg/dL (NEGATIVE); KETONE, URINE AUTO NEGATIVE (NEGATIVE); LEUKOCYTE ESTERASE, URINE AUTO NEGATIVE (NEGATIVE); NITRITE, URINE AUTO NEGATIVE (NEGATIVE); PROTEIN, URINE AUTO 1+ mg/dL (NEGATIVE); RBC, URINE AUTO 6 /HPF (0-3); SPECIFIC GRAVITY URINE AUTO 1.013 (1.002-1.035); SQUAMOUS EPITHELIAL CELL UR AU 8 /HPF (0-6); UROBILINOGEN, URINE AUTO 0.2 mg/dL (0.0-2.0); WBC, URINE AUTO 2 /HPF (0-3)
[2020-01-27] MEDS: SODIUM CHLORIDE 0.9% INJ 10 ML SYR IV SCH ×2 (06:39→17:00)
[2020-01-27] MEDS: ADVAIR HFA 230/21MCG INHALER INH SCH ×2 (07:18→20:06)
[2020-01-27] MEDS ORDERED: MIRA3350 PO (08:20)
[2020-01-27] MEDS ORDERED: VITA200012 PO (08:20)
[2020-01-27] MEDS ORDERED: THIA100T7 PO (08:20)
[2020-01-27] MEDS ORDERED: OXYC10TA12 PO (08:20)
[2020-01-27] MEDS ORDERED: PANT40TA29 PO (08:20)
[2020-01-27] MEDS: MIRALAX *UNIT DOSE* 17GM PACKET PO SCH (08:44)
[2020-01-27] MEDS: LIDOCAINE 5% (LIDODERM) PATCH TOP SCH (08:46)
[2020-01-27] MEDS: HumaLOG INSULIN (NovoLOG) PER UNIT SC SCH ×3 (08:47→17:17)
[2020-01-27] MEDS: APIXABAN 5 MG TAB (ELIQUIS) PO SCH ×2 (08:49→20:09)
[2020-01-27] MEDS: HYDROCORTISONE 10 MG TAB PO SCH ×2 (08:49→12:39)
[2020-01-27] MEDS: FOLIC ACID 1 MG TAB PO SCH (08:49)
[2020-01-27] MEDS: FUROSEMIDE 20 MG TAB PO SCH (08:50)
[2020-01-27] MEDS: DOCUSATE SODIUM 100 MG CAP PO SCH ×2 (08:51→20:09)
[2020-01-27] MEDS: amLODIPine 5 MG TAB PO SCH (08:51)
[2020-01-27] MEDS: LOSARTAN 50MG TABLET PO SCH (08:51)
[2020-01-27] MEDS: PRAMIPEXOLE 0.25 MG TAB PO SCH ×2 (08:51→20:10)
[2020-01-27] MEDS: SERTRALINE 100 MG TAB PO SCH (08:52)
[2020-01-27] MEDS: BACLOFEN 10 MG TAB PO SCH ×2 (08:52→20:09)
[2020-01-27] MEDS: MULTIVITAMINS/MINERALS THERAP 1 TAB PO SCH (08:52)
[2020-01-27] MEDS: VITAMIN D 1,000 INTERNATIONAL UNITS TABLET PO SCH (08:53)
[2020-01-27] MEDS: NYSTATIN CREAM 15 GM TOP SCH (08:54)
[2020-01-27] MEDS ORDERED: BISACODYL 10 MG SUPP PR PRN (09:00)
[2020-01-27 09:01] LABS: BASO # 0.1 10^3/uL (0.0-0.2); BASO % 1.3 % (0.0-1.0); EOS # 0.4 10^3/uL (0.0-0.5); EOS % 3.5 % (0.0-3.0); HEMOGLOBIN 11.3 g/dl (13.5-17.5); LYMPH # 1.8 10^3/uL (1.5-5.0); LYMPH % 18.2 % (24.0-44.0); MEAN CORPUSCULAR HEMOGLOBIN 22.5 pg (27.0-33.0); MEAN CORPUSCULAR HGB CONC 30.5 g/dl (32.0-36.5); MEAN CORPUSCULAR VOLUME 73.6 fl (80.0-96.0); MONO # 1.6 10^3/uL (0.0-0.8); MONO % 16.3 % (0.0-5.0); NEUTROPHILS % 60.1 % (36.0-66.0); PLATELET COUNT, AUTOMATED 766 10^3/uL (150-450); RED BLOOD COUNT 5.03 10^6/uL (4.30-6.10); WHITE BLOOD COUNT 10.1 10^3/uL (4.0-10.0)
[2020-01-27] MEDS: oxyCODONE 5MG TAB PO PRN (09:24)
[2020-01-27] MEDS: THIAMINE 100 MG TAB PO SCH (09:25)
[2020-01-27] MEDS: TAMSULOSIN 0.4 MG CAP PO SCH (09:25)
[2020-01-27] MEDS: PANTOPRAZOLE 40MG TAB (PROTONIX) PO SCH (09:25)
[2020-01-27 09:28] LABS: ALBUMIN 2.4 GM/DL (3.2-5.2); ALT/SGPT 76 U/L (12-78); BILIRUBIN,TOTAL 0.4 MG/DL (0.2-1.0); BLOOD UREA NITROGEN 19 MG/DL (7-18); CALCIUM LEVEL 9.2 MG/DL (8.8-10.2); CARBON DIOXIDE LEVEL 33 MEQ/L (21-32); CHLORIDE LEVEL 97 MEQ/L (98-107); CREATININE FOR GFR 0.89 MG/DL (0.70-1.30); GLOMERULAR FILTRATION RATE > 60.0 (>42); GLUCOSE, FASTING 118 MG/DL (70-100); POTASSIUM SERUM 3.9 MEQ/L (3.5-5.1); SODIUM LEVEL 134 MEQ/L (136-145); TOTAL PROTEIN 7.3 GM/DL (6.4-8.2)
[2020-01-27] MEDS ORDERED: traMADol 50 MG TAB PO PRN (12:00)
[2020-01-27 14:00] VITALS: BP 125/71
--- NOTE | 2020-01-27 15:58 | IPNPDOC ---
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 He was seen in [facility] January 11. [place] to have infection secondary to group B strep, discharged home with with P.O. Keflex. He worsened and had severe AMS and was then seen at [facility] for severe back pain, delerium with white blood count of 14K, CT abdomen and pelvis showed signs concerning for discitis and he was transferred January 16 to [facility] for higher level of care. Ruled out for TN with negative troponins, incidental finding of 1.4 x 0.9 cm hypoechoic structure left kidney noted on ultrasound. Workup included MRI 01/17 revealed a T11-T12 discitis with prevertebral phlegmon versus abscess, lumbar biopsy performed. Additionally noted was severe degenerative disc disease T12-L4, L5, S1 with abnormal vertebral marrow signal T11-12, likely due to bone edema and infection, clumping of the cauda equina nerve roots and severe narrowing of the central canal due to disc bulge and posterior osteophytes, CT angiogram chest and chest x-ray noted for diffuse nonspecific prominence of pulmonary insufficiency. 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 ID recommended IV ceftriaxone for 14 days then Min dose reduction on January 31 for an additional 4 weeks. Picc line placed for maintaining IV Access. Pain management was challenging requiring fentanyl, morphine and oxycodone apparently tolerated despite reported codeine allergy. Constipation was a significant problem, however he managed to have a BM just prior to transfer. Patient now admitted to acute rehabilitation for pain management, strengthening, endurance cognitive and safety issues. Had difficult night with escalation of pain, improving this morning as medications getting better sorted out. REVIEW OF SYSTEMS: The following is a completed review of systems and has been reviewed. Review of systems otherwise unremarkable. PAIN: Low back and left more than right lower extremity EYES: double vision, uses prism glasses since brain surgery EARS, NOSE, & THROAT: No throat pain, or dysphagia, or rhinorrhea. CARDIOVASCULAR: Denies chest pain or palpitations. PULMONARY: Denies shortness of breath. GASTROINTESTINAL: Last BM prior to discharge was January 21 GENITOURINARY: .microscopic hematuria MUSCULOSKELETAL: . Severe low back pain NEUROLOGICAL:. Status post recent episode of encephalopathy related to sepsis, clearing HEMATOLOGICAL: Anemic, fatigued SKIN: .Had Tick bite on presentation, no target lesions, does have irritating interiginous rash PSYCHIATRIC: Unremarkable All other review of systems found to be negative. REVIEW OF SYSTEMS: ALLERGIES: See Below MEDICATIONS: Reviewed, see below. OBJECTIVE: VITAL SIGNS: Please see below. GENERAL: Pleasant and cooperative. No acute distress. Alert and oriented times three. HEENT: PERRL. Extraocular movements intact. Clear conjunctiva, no adenopathy or thyromegaly. Full cervical range of motion Tenderness cervicothoracic region. CARDIOVASCULAR: S1 S2 regular LUNGS: Clear to auscultation bilaterally. No wheezes. No rhonchi. ABDOMEN: Soft, nontender, nondistended. Positive normal active bowel sounds. NEUROLOGICAL: Cranial nerves II through XII grossly intact. Sensation intact all 4 extremities. EXTREMITIES: 5/5 electrostatic painter, elbow flexion, elbow extension, knee extension, foot dorsiflexion, plantar flexion. Able to elevate arms 130 degrees FF. SKIN: .Picc left inner arm. Wide plaque like reddened intertriginous and peroneal regions FUNCTIONAL STATUS: Significant escalation of pain with minimal movements. Standby assistance with bathing, upper body dressing, minimal assist lower body dressing, CTGA toileting, short distance ambulation and bed mobility. Tendency for legs to buckle creates major falls risk. Fatigues very easily. LABORATORY DATA: Reviewed. Please see below. MICROBIOLOGY: Please see below. 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 Group B strep bacteremia. Atrial fibrillation. Essential hypertension History of hematuria secondary to traumatic Ann placement. HLD. CAD s/p 2 prior stents Anemia. Diabetes last hemoglobin A1c 7.3 12/30/2019 Endocrine dysfunction s/p resection pituitary adenoma Hypothyroidism. History Hyponatremia. Sleep apnea Status posts hypoxemic respiratory failure. Tick bite Probable candidiasis ASSESSMENT:74 year-old right handed gentleman with past medical history of cortisone dependent endocrine deficiencies s/p remote resection of pituitary a gustavo arevalo developed severe backpain with left lower extremity pain and generalized sepsis, failed conservative oral antibiotics for group B Strep as an outpatient prescribed after presentation at [facility] Jan 11, returned to [facility] and was referred to [facility] on for deterioration with encephalopathy, leukocytosis and eventual CT Guided lumbar biopsy 01/18 confirmed T11-T12 discitis, reportedly cultures no growth (was on antibiotics) however imaging did demonstrate Phlegmon vs abscess. Here for comprehensive rehabilitation, pain management and completion of IV antibiotics, monitoring closely for S/Sx of neurological deterioration. PLAN: 1. Rehab- PT/OT advance gait and ADls, strengthen/stretch/maintain ROM all 4 limbs. We'll continue to work on timing pain medication with therapy interventions to optimize possible capacity to participate. 2. Neuro- clearing encephalopathy, polyradiculopathy, hx LEYLA-will need sleep study 3. Ortho- T11-12 Discitis/osteomyelitis with probable cauda equina syndrome, DDD, Lumbar stenosis/listhesis s/p prior spine stabilization, continue IV Ceftriaxone begun 01/17 for 2 weeks at current dose, then starting 02/01/20 an additional 4 weeks at reduced dose. Pain management with modalities, medications. Will change tizanidine to Baclofen for mm spasm and see if less adverse cognitive side effect. 4. Cardiac- hx of CAD with Stents, afib, currently stable - Anemia-monitor, supplement as indicated -HTN -amlodipine -HLD- c/u statins 5. Resp -s/p hypoxia/respiratory failure during sepsis, now clear and stable on room air, continue incentive spirometry, monitor for infection 6. Endo- hx of post resection of pituitary adenoma with DM, hypothyroid, adrenal insufficiency, c/u insulin and ISS, thyroid replacement, steroids, family to bring in Testosterone supplementation since not covered in pharmacy. 7. - episodic hematuria, incidental finding of renal ?cysts, monitor UA and output, PVR, bladder training if indicated. 8. GI ppx- s/p constipation, possible mild neurogenic bowel component, continue laxatives, history electrolyte imbalance, monitor and supplement as indicated. On steroids, at risk GI irritation. Na slightly low 134, will liberalize diet 9. Skin-nystatin creme then powder, air out skin areas 10.Tick bite, hopeful coverage with abx rx, observe for odd CV or Neurological manifestations, consider testing for Lymes. DISPOSITION Home with . TIME SPENT: Chart Review, examination and documentation 35 minutes. Allergies Coded Allergies: codeine (Verified Allergy, Intermediate, Rash, 01/17/20) gabapentin (Verified Adverse Reaction, Intermediate, JITTERY, 01/17/20) Vital Signs Vital Signs Date Time Temp Pulse Resp B/P (MAP) Pulse Ox O2 Delivery O2 Flow Rate FiO2 01/27/20 14:00 97.7 62 18 125/71 (89) 90 Room Air Laboratory Data CBC/BMP Laboratory Tests 01/27/20 08:15 Labs 24H Laboratory Tests 2 01/26/20 16:49: Bedside Glucose (Misc Panel) 103 01/26/20 20:05: Bedside Glucose (Misc Panel) 188H 01/27/20 05:56: Urine Color YELLOW, Urine Appearance HAZY, Urine pH 7.0, Urine Specific [place] 1.013, Urine Protein 1+H, Urine Glucose (Auto)(UA) 1+H, Urine Ketones (Auto) NEGATIVE, Urine Blood 1+H, Urine Nitrite NEGATIVE, Urine Bilirubin NEGATIVE, Urine Urobilinogen 0.2, Urine Leukocyte Esterase (Auto) NEGATIVE, Urine WBC (Auto) 2, Urine RBC (Auto) 6H, Urine Hyaline Casts (Auto) 5, Urine Bacteria (Auto) NEGATIVE, Urine Squamous Epithelial Cells 8, Urine Sperm (Auto) 01/27/20 05:59: Bedside Glucose (Misc Panel) 123H 01/27/20 08:15: Immature Granulocyte % (Auto) 0.6, Neutrophils (%) (Auto) 60.1, Lymphocytes (%) (Auto) 18.2L, Monocytes (%) (Auto) 16.3H, Eosinophils (%) (Auto) 3.5H, Basophils (%) (Auto) 1.3H, Neutrophils # (Auto) 6.0, Lymphocytes # (Auto) 1.8, Monocytes # (Auto) 1.6H, Eosinophils # (Auto) 0.4, Basophils # (Auto) 0.1, Nucleated Red Blood Cells % (auto) 0.0, Anion Gap 4L, Glomerular Filtration Rate > 60.0, Calcium Level 9.2, Total Bilirubin 0.4, Aspartate Amino Transf (AST/SGOT) 75H, Alanine Aminotransferase (ALT/SGPT) 76, Alkaline Phosphatase 123H, Total Protein 7.3, Albumin 2.4L, Albumin/Globulin Ratio 0.5 01/27/20 11:12: Bedside Glucose (Misc Panel) 180H Current Medications Current Medications Current Medications Medications (Trade) Dose Ordered Sig/Bishnu Route PRN Reason Start Time Stop Time Status Last Admin Dose Admin Albuterol Sulfate (Proventil, Ventolin Hfa) 2 puff Q4H PRN INH SOB/WHEEZING 01/26/20 17:00 Amlodipine Besylate (Norvasc) 5 mg DAILY PO 01/27/20 09:00 01/27/20 08:51 Apixaban (Eliquis) 5 mg BID PO 01/26/20 21:00 01/27/20 08:49 Baclofen (Lioresal) 10 mg BID PO 01/27/20 09:00 01/27/20 08:52 Bisacodyl (Dulcolax Suppository) 10 mg DAILY PRN NM CONSTIPATION 01/27/20 09:00 Ceftriaxone Sodium 2 gm/ Dextrose 50 ml @ 100 mls/hr Q12H IV 01/26/20 16:00 01/27/20 05:03 Ceftriaxone Sodium 2 gm/ Dextrose 50 ml @ 100 mls/hr Q12H IV 01/26/20 17:00 01/26/20 16:33 DC Dextrose (Dextrose 50%) 25 ml ASDIRECTED PRN IV SEE LABEL COMMENTS 01/26/20 16:45 Docusate Sodium (Colace) 100 mg BID PO 01/26/20 21:00 01/27/20 08:51 EZETIMIBE (Zetia) 10 mg QHS PO 01/26/20 21:00 01/26/20 20:37 Folic Acid (Folic Acid) 1 mg DAILY PO 01/27/20 09:00 01/27/20 08:49 Furosemide (Lasix) 20 mg DAILY PO 01/27/20 09:00 01/27/20 08:50 Glucagon (Glucagon) 1 mg ASDIRECTED PRN SC SEE LABEL COMMENTS 01/26/20 16:45 Glucose (Glucose) 16 GM ASDIRECTED PRN PO SEE LABEL COMMENTS 01/26/20 16:45 Heparin Sodium (Heparin (Flush)) 200 units ASDIRECTED PRN IV SEE LABEL COMMENTS 01/26/20 17:45 Heparin Sodium (Heparin (Flush)) 200 units PICC IV 01/26/20 18:00 01/27/20 06:37 Home Med (Med Rec Complete!) ASDIRECTED XX 01/26/20 15:45 01/26/20 15:33 DC Hydrocortisone (Cortef) 10 mg DAILY@1200 PO 01/27/20 12:00 01/27/20 12:39 Hydrocortisone (Cortef) 15 mg QAM PO 01/27/20 09:00 01/27/20 08:49 Insulin Human Lispro (HumaLOG INSULIN) See Protocol Table AC SC 01/26/20 17:30 01/27/20 12:39 Levothyroxine Sodium (Synthroid) 200 mcg DAILY@0600 PO 01/27/20 06:00 01/27/20 05:45 Lidocaine (Lidoderm Patch) 1 patch DAILY TOP 01/27/20 09:00 01/27/20 08:46 Losartan Potassium (Cozaar) 100 mg DAILY PO 01/27/20 09:00 01/27/20 08:51 Multivitamins (Theragram-M) 1 tab DAILY PO 01/27/20 09:00 01/27/20 08:52 Nitroglycerin (Nitrostat (1/ 150)) 0.4 mg ASDIRECTED PRN SL CHEST PAIN 01/26/20 16:00 Non-Formulary Medication ( See Comment Field Below ) REMOVE LIDODERM PATCH DAILY@21 XX 01/26/20 21:00 Nystatin (Mycostatin) apply to groin and perin... DAILY TOP 01/26/20 18:00 01/27/20 08:54 Oxycodone HCl (Roxicodone, Oxyir) 10 mg Q4H PRN PO SEVERE PAIN (PS 8-10) 01/27/20 09:15 01/27/20 09:24 Pantoprazole Sodium (Protonix) 40 mg DAILY PO 01/27/20 09:00 01/27/20 09:25 Polyethylene Glycol (Miralax) 1 pkt DAILY PO 01/27/20 09:00 01/27/20 08:44 Pramipexole Dihydrochloride (Mirapex) 0.5 mg BID PO 01/26/20 21:00 01/27/20 08:51 Rosuvastatin Calcium (Crestor) 40 mg QHS PO 01/26/20 21:00 01/26/20 20:37 Salmeterol Xinafoate/ Fluticasone (Advair Hfa 230/ 21) 2 puff RBID INH 01/26/20 20:00 01/27/20 07:18 Senna (Senokot) 1 tab QHS PO 01/26/20 21:00 01/26/20 20:37 Sertraline HCl (Zoloft) 150 mg DAILY PO 01/27/20 09:00 01/27/20 08:52 Sodium Chloride (Saline Lock Flush) 10 ml ASDIRECTED PRN IV SEE LABEL COMMENTS 01/26/20 17:45 01/27/20 05:03 Sodium Chloride (Saline Lock Flush) 10 ml PICC IV 01/26/20 18:00 01/27/20 06:39 Tamsulosin HCl (Flomax) 0.4 mg DAILY PO 01/27/20 09:00 01/27/20 09:25 Thiamine HCl (Thiamine HCl) 100 mg DAILY PO 01/27/20 09:00 01/27/20 09:25 Tizanidine HCl (Zanaflex) 2 mg Q8HP PRN PO BACK PAIN 01/26/20 17:15 01/27/20 07:04 DC 01/27/20 00:45 Tizanidine HCl (Zanaflex) 2 mg Q8HP PRN PO BACK PAIN 01/26/20 17:15 01/26/20 17:27 DC Tramadol HCl (Ultram) 50 mg Q6H PRN PO PAIN 01/26/20 18:00 01/27/20 07:01 DC 01/27/20 05:14 Tramadol HCl (Ultram) 75 mg Q6H PRN PO PAIN 01/27/20 12:00 Vitamin D (Vitamin D) 5,000 units DAILY PO 01/27/20 09:00 01/27/20 08:53 FATMATA DHALIWAL MD Jan 27, 2020 15:58
--- NOTE | 2020-01-27 18:28 | HPEPDOC ---
[facility] [place] Medical History & Physical Date of Admission Jan 27, 2020 Date of Service: Jan 27, 2020 History and Physical CHIEF COMPLAINT: Status post discitis, admitted for rehabilitation to ARU HISTORY OF PRESENT ILLNESS: 74-year-old male with a history of atrial fibrillation on eliquis, depression, diabetes, adrenal insufficiency on chronic hydrocortisone, CAD status post stenting. Developed subjective fevers and rigors on on January 11 was seen at [facility] treated for group B strep infection with poKeflex. He was then seen at [facility] ER for severe altered mental status as well as back pain and leukocytosis. His imaging findings were concerning for discitis. He was transferred to [facility] for higher level of care on 01/16. Workup revealed a T11-T12 discitis with possible prevertebral phlegmon versus abscess. S/p lumbar biopsy. Patient currently receiving IV ceftriaxone via PICC line. Hospitalist service consulted for medical comanagement. Admitted to ARU for strengthening. PAST MEDICAL HISTORY: A. fib managed with Eliquis Depression. Anxiety. Diabetes. Adrenal insufficiency noted treated with hydrocortisone CAD s/p stent x 2 PAST SURGICAL HISTORY: Appendectomy. Brain surgery-reported pituitary adenoma with partial resection, residual, adrenal insufficiency. Spine surgery s/p LS fusion for spondylolisthesis, and subsequent discectomy for HNP approximately 2015 CAD s/p stent x 2 Carpal tunnel release SOCIAL HISTORY: Patient denies smoking Patient denies etoh use Patient denies illicit drug use FAMILY HISTORY: Reviewed with patient, no pertinent family history ALLERGIES: Please see below. REVIEW OF SYSTEMS: CONSTITUTIONAL: patient denies fevers, chills HEENT: patient denies blurred vision, loss of vision, headache,. CARDIOVASCULAR: patient denies chest pain, palpitations. RESPIRATORY: patient denies shortness of breath, cough, hemoptysis. GASTROINTESTINAL: patient denies abdominal pain, n/v/d, blood in stool. GENITOURINARY: patient denies dysuria, discharge. SKIN: patient denies rashes. MUSCULOSKELETAL: patient denies joint pain, neck pain. NEUROLOGICAL: patient denies focal weakness, numbness, seizures. PSYCHIATRIC: patient denies SI/HI. ENDOCRINE: patient denies polyuria, heat intolerance, cold intolerance. HEMATOLOGIC/LYMPHATIC: patient denies easy bruising. HOME MEDICATIONS: Please see below. PHYSICAL EXAMINATION: VITAL SIGNS: please see below General: NAD, comfortable HEENT: PERRLA, EOMI, sclerae clear Neck: supple, normal ROM, no JVD Respiratory: lungs CTAB, no wheeze, no rales, no crackles CVS: RRR, normal S1, S2, no murmurs Abdo: soft, no masses, no hepatosplenomegaly, BS+, no rebound tenderness Extremities: no edema, pulses 2+, PICC , left inner arm MSK: no joint deformities, normal ROM Neuro: no focal neuro deficits, moving all 4 extremities, CN2-12 intact. Strength 5/5 in all 4 extremities. No nystagmus. Psych: calm, cooperative, AAO x 3 LABORATORY DATA: See below. MICROBIOLOGY: Please see below. ASSESSMENT: 74-year-old male with a history of atrial fibrillation on [place], depression, diabetes, adrenal insufficiency on chronic hydrocortisone, CAD status post stenting, currently receiving IV ceftriaxone for T11-T12 discitis and is admitted to acute rehabilitation for strengthening. . PLAN: # Rehab: per PMR/ARU #Hx of LEYLA: outpatient sleep study #Discitis T11-T12: ceftriaxone IV via PICC, started 01/17 for 2 weeks at present dose, followed by additional 4 weeks at a reduced dose. #Chronic atrial fibrillation: c/w eliquis #HTN: c/w losartan, amlodipine #CAD s/p stenting: statin. #Hx of acute hypoxic respiratory failure: c/w incentive spirometer. #hematuria?: repeat UA outpatient. Renal cysts?. Urology outpatient. #DM2: c/w ISS, FSBS, hypoglycemic precaautions #Adrenal insufficiency: s/p pituitary adenoma resection. Thyroid, steroid,, testosterone replacement #Constipation: bowel regimen #GI ppx: c/w PPI DVT ppx: on AC eliquis Vital Signs Vital Signs Date Time Temp Pulse Resp B/P (MAP) Pulse Ox O2 Delivery O2 Flow Rate FiO2 01/27/20 14:00 97.7 62 18 125/71 (89) 90 Room Air Laboratory Data Labs 24H Laboratory Tests 2 01/26/20 20:05: Bedside Glucose (Misc Panel) 188H 01/27/20 05:56: Urine Color YELLOW, Urine Appearance HAZY, Urine pH 7.0, Urine Specific [place] 1.013, Urine Protein 1+H, Urine Glucose (Auto)(UA) 1+H, Urine Ketones (Auto) NEGATIVE, Urine Blood 1+H, Urine Nitrite NEGATIVE, Urine Bilirubin NEGATIVE, Urine Urobilinogen 0.2, Urine Leukocyte Esterase (Auto) NEGATIVE, Urine WBC (Auto) 2, Urine RBC (Auto) 6H, Urine Hyaline Casts (Auto) 5, Urine Bacteria (Auto) NEGATIVE, Urine Squamous Epithelial Cells 8, Urine Sperm (Auto) 01/27/20 05:59: Bedside Glucose (Misc Panel) 123H 01/27/20 08:15: Immature Granulocyte % (Auto) 0.6, Neutrophils (%) (Auto) 60.1, Lymphocytes (%) (Auto) 18.2L, Monocytes (%) (Auto) 16.3H, Eosinophils (%) (Auto) 3.5H, Basophils (%) (Auto) 1.3H, Neutrophils # (Auto) 6.0, Lymphocytes # (Auto) 1.8, Monocytes # (Auto) 1.6H, Eosinophils # (Auto) 0.4, Basophils # (Auto) 0.1, Nucleated Red Blood Cells % (auto) 0.0, Anion Gap 4L, Glomerular Filtration Rate > 60.0, Ca lcium Level 9.2, Total Bilirubin 0.4, Aspartate Amino Transf (AST/SGOT) 75H, Alanine Aminotransferase (ALT/SGPT) 76, Alkaline Phosphatase 123H, Total Protein 7.3, Albumin 2.4L, Albumin/Globulin Ratio 0.5 01/27/20 11:12: Bedside Glucose (Misc Panel) 180H 01/27/20 16:32: Bedside Glucose (Misc Panel) 289H CBC/BMP Laboratory Tests 01/27/20 08:15 Home Medications Scheduled Amlodipine Besylate (Amlodipine Besylate) 5 Mg Tablet, 5 MG PO DAILY Apixaban (Eliquis) 5 Mg Tablet, 5 MG PO BID Ceftriaxone in Is-Osm Dextrose (Ceftriaxone 2 gm-D5w Bag) 2 Gm/50 Ml Piggyback, 2 GM IV Q12H Cholecalciferol (Vitamin D3) (D3-2000) 50 Mcg Capsule, 50 MCG PO DAILY Docusate Sodium (Docusate Sodium) 100 Mg Capsule, 100 MG PO BID Empagliflozin (Jardiance) 10 Mg Tab, 10 MG PO DAILY Exenatide Microspheres (Bydureon) 2 Mg/0.65 Ml Pen.injctr, 2 MG SC 1XWK WEDNESDAYS Ezetimibe (Zetia) 10 Mg Tab, 10 MG PO QHS Flaxseed Oil (Flaxseed Oil) 1,000 Mg Capsule, 1,000 MG PO QHS Fluticasone Propion/Salmeterol (Advair Hfa 230-21 Mcg Inhaler) 12 Gm Hfa.aer.ad, 2 PUFF INH BID Folic Acid (Folic Acid) 1 Mg Tablet, 1 MG PO DAILY Furosemide (Furosemide) 20 Mg Tablet, 20 MG PO DAILY Hydrocortisone (Cortef) 10 Mg Tab, 10 MG PO DAILY @ NOON Hydrocortisone (Cortef) 10 Mg Tab, 15 MG PO QAM Levothyroxine Sodium (Synthroid) 200 Mcg Tablet, 200 MCG PO DAILY Lidocaine (Lidocaine) 5% Adh..patch, 1 PATCH TOP DAILY APPLY TO LOWER BACK Losartan Potassium (Losartan Potassium) 100 Mg Tablet, 100 MG PO DAILY Multivitamin (Multivitamins) 1 Each Capsule, 1 CAP PO DAILY Pantoprazole Sodium (Pantoprazole Sodium) 40 Mg Tablet.dr, 40 MG PO DAILY Pioglitazone HCl (Pioglitazone HCl) 15 Mg Tablet, 15 MG PO DAILY Polyethylene Glycol 3350 (Miralax) 119 Gm Powder, 17 GM PO DAILY dilute in 8 ounces of water or juice Pramipexole Di-HCl (Mirapex) 0.5 Mg Tablet, 0.5 MG PO BID Rosuvastatin Calcium (Crestor) 40 Mg Tab, 40 MG PO QHS Sennosides (Senna) 8.6 Mg Tablet, 16.2 MG PO QHS Sertraline HCl (Sertraline HCl) 100 Mg Tablet, 150 MG PO DAILY Testosterone (Testosterone) 2.5 Gm Gel.packet, 25 MG TD DAILY APPLY TO STOMACH Thiamine HCl (Thiamine HCl) 100 Mg Tablet, 100 MG PO DAILY Scheduled PRN Albuterol Sulfate (Ventolin Hfa) 18 Gm Hfa.aer.ad, 2 PUFF INH Q4H PRN for SOB/WHEEZING Bisacodyl (Bisacodyl) 10 Mg Supp.rect, 10 MG MI DAILY PRN for CONSTIPATION Nitroglycerin (Nitrostat) 0.4 Mg Subl, 0.4 MG SL NITRO PRN for CHEST PAIN Oxycodone HCl (Oxycodone HCl) 10 Mg Tablet, 10 MG PO Q4H PRN for SEVERE PAIN (PS 8-10) GIVEN AT [facility] Tramadol HCl (Tramadol HCl) 50 Mg Tablet, 50 MG PO Q6H PRN for PAIN Allergies Coded Allergies: codeine (Verified Allergy, Intermediate, Rash, 01/17/20) gabapentin (Verified Adverse Reaction, Intermediate, JITTERY, 01/17/20) A-FIB/CHADSVASC A-FIB History Current/History of A-Fib/PAF?: Yes Current PO Anticoag Therapy: Yes PROMISE HANEY MD Jan 27, 2020 18:28
[2020-01-27 20:00] VITALS: BP 119/56
[2020-01-27] MEDS: SENNA 8.6 MG TAB (SENOKOT) PO SCH (20:09)
[2020-01-27] MEDS: ROSUVASTATIN 10 MG TAB (CRESTOR) PO SCH (20:09)
[2020-01-27] MEDS: EZETIMIBE 10 MG TAB (ZETIA) PO SCH (20:09)
[2020-01-27] MEDS: **NOTE PATIENT COMMENT** MISC XX SCH (20:11)
[2020-01-28] MEDS: oxyCODONE 5MG TAB PO PRN ×2 (01:55→07:01)
[2020-01-28] MEDS: cefTRIAXone SOD 2 GM in D5W MINI-BAG PLUS 50 ML IV SCH ×2 (04:31→15:12)
[2020-01-28] MEDS: SODIUM CHLORIDE 0.9% INJ 10 ML SYR IV SCH ×2 (05:07→18:53)
[2020-01-28] MEDS: LEVOTHYROXINE 100MCG TABLET (0.1MG) PO SCH (05:07)
[2020-01-28 06:00] VITALS: BP 162/75
[2020-01-28] MEDS: ACETAMINOPHEN 650MG ER TAB (TYLENOL ARTHRITIS) PO SCH ×3 (06:00→21:37)
[2020-01-28] MEDS ORDERED: oxyCODONE 5MG TAB PO PRN ×2 (08:00→08:30)
[2020-01-28] MEDS: ADVAIR HFA 230/21MCG INHALER INH SCH ×2 (08:01→20:24)
[2020-01-28] MEDS: LOSARTAN 50MG TABLET PO SCH (08:12)
[2020-01-28] MEDS: PANTOPRAZOLE 40MG TAB (PROTONIX) PO SCH (08:12)
[2020-01-28] MEDS: SERTRALINE 100 MG TAB PO SCH (08:12)
[2020-01-28] MEDS: FUROSEMIDE 20 MG TAB PO SCH (08:13)
[2020-01-28] MEDS: FOLIC ACID 1 MG TAB PO SCH (08:13)
[2020-01-28] MEDS: amLODIPine 5 MG TAB PO SCH (08:13)
[2020-01-28] MEDS: VITAMIN D 1,000 INTERNATIONAL UNITS TABLET PO SCH (08:13)
[2020-01-28] MEDS: DOCUSATE SODIUM 100 MG CAP PO SCH ×2 (08:14→20:06)
[2020-01-28] MEDS: MIRALAX *UNIT DOSE* 17GM PACKET PO SCH (08:14)
[2020-01-28] MEDS: THIAMINE 100 MG TAB PO SCH (08:14)
[2020-01-28] MEDS: MULTIVITAMINS/MINERALS THERAP 1 TAB PO SCH (08:14)
[2020-01-28] MEDS: HYDROCORTISONE 10 MG TAB PO SCH ×2 (08:14→12:18)
[2020-01-28] MEDS: PRAMIPEXOLE 0.25 MG TAB PO SCH ×2 (08:14→20:06)
[2020-01-28] MEDS: APIXABAN 5 MG TAB (ELIQUIS) PO SCH ×2 (08:14→20:08)
[2020-01-28] MEDS: BACLOFEN 10 MG TAB PO SCH (08:14)
--- NOTE | 2020-01-28 08:14 | IPNPDOC ---
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 He was seen in [facility] January 11. Arley to have infection secondary to group B strep, discharged home with with P.O. Keflex. He worsened and had severe AMS and was then seen at [facility] for severe back pain, delerium with white blood count of 14K, CT abdomen and pelvis showed signs concerning for discitis and he was transferred January 16 to [facility] for higher level of care. Ruled out for MD with negative troponins, incidental finding of 1.4 x 0.9 cm hypoechoic structure left kidney noted on ultrasound. Workup included MRI 01/17 revealed a T11-T12 discitis with prevertebral phlegmon versus abscess, lumbar biopsy performed. Additionally noted was severe degenerative disc disease T12-L4, L5, S1 with abnormal vertebral marrow signal T11-12, likely due to bone edema and infection, clumping of the cauda equina nerve roots and severe narrowing of the central canal due to disc bulge and posterior osteophytes, CT angiogram chest and chest x-ray noted for diffuse nonspecific prominence of pulmonary insufficiency. 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 ID recommended IV ceftriaxone for 14 days then Min dose reduction on January 31 for an additional 4 weeks. Picc line placed for maintaining IV Access. Pain management was challenging requiring fentanyl, morphine and oxycodone apparently tolerated despite reported codeine allergy. Constipation was a significant problem, however he managed to have a BM just prior to transfer. Patient admitted to acute rehabilitation for pain management, strengthening, endurance cognitive and safety issues while also managing complex medical issues. Yesterday he had a good day after just one dose of 10mg oxycodone, however may have overdone it in therapy. Had another difficult night with escal ation of pain, agitation, crying out much of the night improving this morning with hypersomnolence as medications getting better sorted out through discussion with pharmacy and review of protocol being given just prior to his transfer to ARU. 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 Apparently found a few times in sweat soaked bedsheets. Has remained afebrile. REVIEW OF SYSTEMS: The following is a completed review of systems and has been reviewed. Review of systems otherwise unremarkable. PAIN: Low back and left more than right lower extremity EYES: double vision, uses prism glasses since brain surgery EARS, NOSE, & THROAT: No throat pain, or dysphagia, or rhinorrhea. CARDIOVASCULAR: Denies chest pain or palpitations. PULMONARY: Denies shortness of breath. GASTROINTESTINAL: Last BM prior to discharge was January 21 GENITOURINARY: .microscopic hematuria MUSCULOSKELETAL: . Severe low back pain NEUROLOGICAL:. Status post recent episode of encephalopathy related to sepsis, clearing HEMATOLOGICAL: Anemic, fatigued SKIN: .Had Tick bite on presentation, no target lesions, does have irritating interiginous rash PSYCHIATRIC: Unremarkable All other review of systems found to be negative. REVIEW OF SYSTEMS: ALLERGIES: See Below MEDICATIONS: Reviewed, see below. OBJECTIVE: VITAL SIGNS: Please see below. GENERAL: Earlier was in great distress, crying out for comfort, difficult to console. After next dose of medication, became hypersomnolent, difficult to participate in therapy. HEENT: Extraocular movements intact. no adenopathy or thyromegaly. Full cervical range of motion Tenderness cervicothoracic region. CARDIOVASCULAR: S1 S2 regular LUNGS: Clear to auscultation bilaterally. No wheezes. No rhonchi. ABDOMEN: Soft, nontender, nondistended. Positive normal active bowel sounds. NEUROLOGICAL: Cranial nerves II through XII grossly intact. Sensation intact all 4 extremities. EXTREMITIES: 5/5 trailer chief, elbow flexion, elbow extension, knee extension, foot dorsiflexion, plantar flexion. Able to elevate arms 130 degrees FF. SKIN: .Picc left inner arm. Wide plaque like reddened intertriginous and peroneal regions FUNCTIONAL STATUS: Significant escalation of pain with minimal movements during evaluations, resisting participation out of bed today due to pain, working on strengthening activities, speech cognitive reorientation and communication activities..When clear, can perform standby assistance with bathing, upper body dressing, minimal assist lower body dressing, CTGA toileting, short distance ambulation and bed mobility. Tendency for legs to buckle, or just plops down in the chair, aggravating spinal symptoms, also creates major falls risk. Fatigues very easily. LABORATORY DATA: Reviewed. Please see below. MICROBIOLOGY: Please see below. 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 Group B strep bacteremia. Atrial fibrillation. Essential hypertension History of hematuria secondary to traumatic Ann placement. HLD. CAD s/p 2 prior stents Anemia. Diabetes last hemoglobin A1c 7.3 12/30/2019 Endocrine dysfunction s/p resection pituitary adenoma Hypothyroidism. History Hyponatremia. Sleep apnea Status posts hypoxemic respiratory failure. Tick bite Probable candidiasis ASSESSMENT:74 year-old right handed gentleman with past medical history of cortisone dependent endocrine deficiencies s/p remote resection of pituitary adenoma hat developed severe backpain with left lower extremity pain and generalized sepsis, failed conservative oral antibiotics for group B Strep as an outpatient prescribed after presentation at [facility] Jan 11, returned to [facility] and was referred to [facility] on for deterioration with encephalopathy, leukocytosis and eventual CT Guided lumbar biopsy 01/18 confirmed T11-T12 discitis, reportedly cultures no growth (was on antibiotics) however imaging did demonstrate Phlegmon vs abscess. Here for comprehensive rehabilitation, pain management and completion of IV antibiotics, monitoring closely for S/Sx of neurological deterioration. Has had a elo entry while we work to stay ahead of the pain instead of chasing the pain, without oversedation or other adverse side effects. Long pharmacy consultation held, will proceed with daily long acting opiate combined with 1st line high dose Tylenol for breakthrough, bump up Baclofen for spasm/nerve discomfort, and provide additional oxycodone 5mg for further breakthrough pain Q6 until under control, then once consistently tolerating higher levels of activity without significant set back, proceed with weaning down doses to long range tolerable targets. Case discussed with hospitalist. PLAN: 1. Rehab- PT/OT advance gait and ADls, strengthen/stretch/maintain ROM all 4 limbs. We'll continue to work on timing pain medication with therapy interventions to optimize possible capacity to participate. 2. Neuro- clearing encephalopathy, polyradiculopathy, hx LEYLA-will need sleep study 3. Ortho- T11-12 Discitis/osteomyelitis with probable cauda equina syndrome, DDD, Lumbar stenosis/listhesis s/p prior spine stabilization, continue IV Ceftriaxone begun 01/17 for 2 weeks at current dose, then starting 02/01/20 an additional 4 weeks at reduced dose. Low threshold for re imaging if pain continues to be resistant or worsens or fever, worsening leukocytosis (10.1) noted along with current sweats and severe pain fluctuations. Pain management with modalities, has reported history of Afib s/p ablation, not on a pacemaker currently, low margin or juan vs potential benefit of short term trial TENS as another approach to help manage pain if medications continue to prove insufficient. Changed tizanidine to Baclofen for mm spasm and observing to see if less adverse cognitive side effect. 4. Cardiac- hx of CAD with Stents, afib, currently stable - Anemia-monitor, supplement as indicated -HTN -amlodipine -HLD- c/u statins 5. Resp -s/p hypoxia/respiratory failure during sepsis, now clear and stable on room air, continue incentive spirometry, monitor for infection 6. Endo- hx of post resection of pituitary adenoma with DM, hypothyroid, adrenal insufficiency, c/u insulin and ISS, thyroid replacement, steroids, family brought in Testosterone supplementation since not covered in pharmacy, however need proper labelling to administer on unit. FBS well controlled 125.. 7. - episodic hematuria, incidental finding of renal ?cysts, monitor UA and output, PVR, bladder training if indicated. 8. GI ppx- s/p constipation, possible mild neurogenic bowel component, continue laxatives, history electrolyte imbalance, monitor and supplement as indicated. On steroids, at risk GI irritation. Na slightly low 134, will liberalize diet 9. Skin-nystatin creme then powder, air out skin areas 10.Tick bite, hopeful coverage with abx rx, observe for odd CV or Neurological manifestations, consider testing for Lymes. DISPOSITION Home with . TIME SPENT: Chart Review, examination and documentation 40 minutes. Allergies Coded Allergies: codeine (Verified Allergy, Intermediate, Rash, 01/17/20) gabapentin (Verified Adverse Reaction, Intermediate, JITTERY, 01/17/20) Vital Signs Vital Signs Date Time Temp Pulse Resp B/P (MAP) Pulse Ox O2 Delivery O2 Flow Rate FiO2 01/28/20 07:31 16 01/28/20 06:00 97.9 64 162/75 (104) 97 Room Air Laboratory Data CBC/BMP Laboratory Tests 01/27/20 08:15 Labs 24H Laboratory Tests 2 01/27/20 08:15: Immature Granulocyte % (Auto) 0.6, Neutrophils (%) (Auto) 60.1, Lymphocytes (%) (Auto) 18.2L, Monocytes (%) (Auto) 16.3H, Eosinophils (%) (Auto) 3.5H, Basophils (%) (Auto) 1.3H, Neutrophils # (Auto) 6.0, Lymphocytes # (Auto) 1.8, Monocytes # (Auto) 1.6H, Eosinophils # (Auto) 0.4, Basophils # (Auto) 0.1, Nucleated Red Blood Cells % (auto) 0.0, Anion Gap 4L, Glomerular Filtration Rate > 60.0, Calcium Level 9.2, Total Bilirubin 0.4, Aspartate Amino Transf (AST/SGOT) 75H, Alanine Aminotransferase (ALT/SGPT) 76, Alkaline Phosphatase 123H, Total Protein 7.3, Albumin 2.4L, Albumin/Globulin Ratio 0.5 01/27/20 11:12: Bedside Glucose (Misc Panel) 180H 01/27/20 16:32: Bedside Glucose (Misc Panel) 289H 01/27/20 19:37: Bedside Glucose (Misc Panel) 209H 01/28/20 07:04: Bedside Glucose (Misc Panel) 125H Current Medications Current Medications Current Medications Medications (Trade) Dose Ordered Sig/Bishnu Route PRN Reason Start Time Stop Time Status Last Admin Dose Admin Acetaminophen (Tylenol Arthritis Er) 1,300 mg Q8H PO 01/28/20 06:00 Albuterol Sulfate (Proventil, Ventolin Hfa) 2 puff Q4H PRN INH SOB/WHEEZING 01/26/20 17:00 Amlodipine Besylate (Norvasc) 5 mg DAILY PO 01/27/20 09:00 01/27/20 08:51 Apixaban (Eliquis) 5 mg BID PO 01/26/20 21:00 01/27/20 20:09 Baclofen (Lioresal) 10 mg BID PO 01/27/20 09:00 01/27/20 20:09 Bisacodyl (Dulcolax Suppository) 10 mg DAILY PRN TX CONSTIPATION 01/27/20 09:00 Ceftriaxone Sodium 2 gm/ Dextrose 50 ml @ 100 mls/hr Q12H IV 01/26/20 16:00 01/28/20 04:31 Ceftriaxone Sodium 2 gm/ Dextrose 50 ml @ 100 mls/hr Q12H IV 01/26/20 17:00 01/26/20 16:33 DC Dextrose (Dextrose 50%) 25 ml ASDIRECTED PRN IV SEE LABEL COMMENTS 01/26/20 16:45 Docusate Sodium (Colace) 100 mg BID PO 01/26/20 21:00 01/27/20 20:09 EZETIMIBE (Zetia) 10 mg QHS PO 01/26/20 21:00 01/27/20 20:09 Folic Acid (Folic Acid) 1 mg DAILY PO 01/27/20 09:00 01/27/20 08:49 Furosemide (Lasix) 20 mg DAILY PO 01/27/20 09:00 01/27/20 08:50 Glucagon (Glucagon) 1 mg ASDIRECTED PRN SC SEE LABEL COMMENTS 01/26/20 16:45 Glucose (Glucose) 16 GM ASDIRECTED PRN PO SEE LABEL COMMENTS 01/26/20 16:45 Heparin Sodium (Heparin (Flush)) 200 units ASDIRECTED PRN IV SEE LABEL COMMENTS 01/26/20 17:45 01/27/20 17:01 Heparin Sodium (Heparin (Flush)) 200 units PICC IV 01/26/20 18:00 01/28/20 05:06 Home Med (Med Rec Complete!) ASDIRECTED XX 01/26/20 15:45 01/26/20 15:33 DC Hydrocortisone (Cortef) 10 mg DAILY@1200 PO 01/27/20 12:00 01/27/20 12:39 Hydrocortisone (Cortef) 15 mg QAM PO 01/27/20 09:00 01/27/20 08:49 Insulin Human Lispro (HumaLOG INSULIN) See Protocol Table AC SC 01/26/20 17:30 01/27/20 17:17 Levothyroxine Sodium (Synthroid) 200 mcg DAILY@0600 PO 01/27/20 06:00 01/28/20 05:07 Lidocaine (Lidoderm Patch) 1 patch DAILY TOP 01/27/20 09:00 01/27/20 08:46 Losartan Potassium (Cozaar) 100 mg DAILY PO 01/27/20 09:00 01/27/20 08:51 Multivitamins (Theragram-M) 1 tab DAILY PO 01/27/20 09:00 01/27/20 08:52 Nitroglycerin (Nitrostat (1/ 150)) 0.4 mg ASDIRECTED PRN SL CHEST PAIN 01/26/20 16:00 Non-Formulary Medication ( See Comment Field Below ) REMOVE LIDODERM PATCH DAILY@21 XX 01/26/20 21:00 01/27/20 20:11 Nystatin (Mycostatin) apply to groin and perin... DAILY TOP 01/26/20 18:00 01/27/20 08:54 Oxycodone HCl (Roxicodone, Oxyir) 5 mg Q6H PRN PO MILD/MODERATE PAIN (PS 1-7) 01/28/20 08:00 Oxycodone HCl (Roxicodone, Oxyir) 10 mg Q4H PRN PO SEVERE PAIN (PS 8-10) 01/27/20 09:15 01/28/20 07:01 Pantoprazole Sodium (Protonix) 40 mg DAILY PO 01/27/20 09:00 01/27/20 09:25 Polyethylene Glycol (Miralax) 1 pkt DAILY PO 01/27/20 09:00 01/27/20 08:44 Pramipexole Dihydrochloride (Mirapex) 0.5 mg BID PO 01/26/20 21:00 01/27/20 20:10 Rosuvastatin Calcium (Crestor) 40 mg QHS PO 01/26/20 21:00 01/27/20 20:09 Salmeterol Xinafoate/ Fluticasone (Advair Hfa 230/ 21) 2 puff RBID INH 01/26/20 20:00 01/28/20 08:01 Senna (Senokot) 1 tab QHS PO 01/26/20 21:00 01/27/20 20:09 Sertraline HCl (Zoloft) 150 mg DAILY PO 01/27/20 09:00 01/27/20 08:52 Sodium Chloride (Saline Lock Flush) 10 ml ASDIRECTED PRN IV SEE LABEL COMMENTS 01/26/20 17:45 01/27/20 17:01 Sodium Chloride (Saline Lock Flush) 10 ml PICC IV 01/26/20 18:00 01/28/20 05:07 Tamsulosin HCl (Flomax) 0.4 mg DAILY PO 01/27/20 09:00 01/27/20 09:25 Thiamine HCl (Thiamine HCl) 100 mg DAILY PO 01/27/20 09:00 01/27/20 09:25 Tizanidine HCl (Zanaflex) 2 mg Q8HP PRN PO BACK PAIN 01/26/20 17:15 01/27/20 07:04 DC 01/27/20 00:45 Tizanidine HCl (Zanaflex) 2 mg Q8HP PRN PO BACK PAIN 01/26/20 17:15 01/26/20 17:27 DC Tramadol HCl (Ultram) 50 mg Q6H PRN PO PAIN 01/26/20 18:00 01/27/20 07:01 DC 01/27/20 05:14 Tramadol HCl (Ultram) 75 mg Q6H PRN PO PAIN 01/27/20 12:00 01/28/20 06:26 Vitamin D (Vitamin D) 5,000 units DAILY PO 01/27/20 09:00 01/27/20 08:53 FATMATA DHALIWAL MD Jan 28, 2020 08:14
[2020-01-28] MEDS: LIDOCAINE 5% (LIDODERM) PATCH TOP SCH (08:15)
[2020-01-28] MEDS: TAMSULOSIN 0.4 MG CAP PO SCH (08:15)
[2020-01-28] MEDS: NYSTATIN CREAM 15 GM TOP SCH (08:17)
[2020-01-28] MEDS: HumaLOG INSULIN (NovoLOG) PER UNIT SC SCH ×3 (08:17→17:58)
[2020-01-28] MEDS ORDERED: LORazepam 0.5 MG TAB PO PRN (08:30)
[2020-01-28] MEDS: LIDOCAINE 5% (LIDODERM) PATCH TD SCH (09:13)
[2020-01-28 11:42] VITALS: BP 116/64
[2020-01-28] MEDS ORDERED: oxyCODONE 10 MG CR TAB PO ONE (12:00)
[2020-01-28 14:00] VITALS: BP 122/70
[2020-01-28] MEDS: NYSTATIN 100,000 UNITS/GM TOPICAL PWD 15 GM TOP SCH (15:12)
[2020-01-28] MEDS: SODIUM CHLORIDE 0.9% INJ 10 ML SYR IV PRN (15:12)
[2020-01-28 19:28] VITALS: BP 132/78
[2020-01-28] MEDS: ROSUVASTATIN 10 MG TAB (CRESTOR) PO SCH (20:06)
[2020-01-28] MEDS: EZETIMIBE 10 MG TAB (ZETIA) PO SCH (20:07)
[2020-01-28] MEDS: SENNA 8.6 MG TAB (SENOKOT) PO SCH (20:07)
[2020-01-28] MEDS: **NOTE PATIENT COMMENT** MISC XX SCH (20:08)
[2020-01-28] MEDS ORDERED: oxyCODONE 10 MG CR TAB PO SCH (21:00)
[2020-01-28] MEDS ORDERED: BACLOFEN 10 MG TAB PO SCH (21:00)
[2020-01-29] MEDS: cefTRIAXone SOD 2 GM in D5W MINI-BAG PLUS 50 ML IV SCH ×2 (04:06→15:15)
[2020-01-29 04:11] VITALS: BP 160/78
[2020-01-29 06:00] VITALS: BP 152/71
[2020-01-29] MEDS: LIDOCAINE 5% (LIDODERM) PATCH TD SCH (06:11)
[2020-01-29] MEDS: PRAMIPEXOLE 0.25 MG TAB PO SCH ×2 (06:12→20:33)
[2020-01-29] MEDS: ACETAMINOPHEN 650MG ER TAB (TYLENOL ARTHRITIS) PO SCH ×3 (06:12→20:32)
[2020-01-29] MEDS: LEVOTHYROXINE 100MCG TABLET (0.1MG) PO SCH (06:12)
[2020-01-29] MEDS: SODIUM CHLORIDE 0.9% INJ 10 ML SYR IV SCH ×2 (06:14→17:16)
[2020-01-29 06:55] LABS: BASO # 0.1 10^3/uL (0.0-0.2); BASO % 1.2 % (0.0-1.0); EOS # 0.2 10^3/uL (0.0-0.5); EOS % 2.2 % (0.0-3.0); HEMATOCRIT 35.8 % (42.0-52.0); HEMOGLOBIN 10.6 g/dl (13.5-17.5); LYMPH # 1.4 10^3/uL (1.5-5.0); MEAN CORPUSCULAR HEMOGLOBIN 21.9 pg (27.0-33.0); MEAN CORPUSCULAR HGB CONC 29.6 g/dl (32.0-36.5); MEAN CORPUSCULAR VOLUME 74.1 fl (80.0-96.0); MONO # 1.3 10^3/uL (0.0-0.8); MONO % 14.3 % (0.0-5.0); NEUTROPHILS # 6.2 10^3/uL (1.5-8.5); PLATELET COUNT, AUTOMATED 856 10^3/uL (150-450); RED BLOOD COUNT 4.83 10^6/uL (4.30-6.10); WHITE BLOOD COUNT 9.2 10^3/uL (4.0-10.0)
[2020-01-29] MEDS ORDERED: oxyCODONE 10 MG CR TAB PO PRN (07:00)
[2020-01-29 07:09] LABS: BLOOD UREA NITROGEN 18 MG/DL (7-18); CALCIUM LEVEL 8.9 MG/DL (8.8-10.2); CARBON DIOXIDE LEVEL 32 MEQ/L (21-32); CHLORIDE LEVEL 97 MEQ/L (98-107); CREATININE FOR GFR 0.76 MG/DL (0.70-1.30); GLOMERULAR FILTRATION RATE > 60.0 (>42); GLUCOSE, FASTING 103 MG/DL (70-100); POTASSIUM SERUM 4.2 MEQ/L (3.5-5.1); SODIUM LEVEL 134 MEQ/L (136-145)
[2020-01-29] MEDS: HumaLOG INSULIN (NovoLOG) PER UNIT SC SCH ×3 (07:30→17:15)
[2020-01-29] MEDS: FOLIC ACID 1 MG TAB PO SCH (08:25)
[2020-01-29] MEDS: FUROSEMIDE 20 MG TAB PO SCH (08:25)
[2020-01-29] MEDS: LOSARTAN 50MG TABLET PO SCH (08:25)
[2020-01-29] MEDS: HYDROCORTISONE 10 MG TAB PO SCH ×2 (08:26→12:32)
[2020-01-29] MEDS: amLODIPine 5 MG TAB PO SCH (08:26)
[2020-01-29] MEDS: PANTOPRAZOLE 40MG TAB (PROTONIX) PO SCH (08:26)
[2020-01-29] MEDS: APIXABAN 5 MG TAB (ELIQUIS) PO SCH ×2 (08:26→20:33)
[2020-01-29] MEDS: MULTIVITAMINS/MINERALS THERAP 1 TAB PO SCH (08:26)
[2020-01-29] MEDS: DOCUSATE SODIUM 100 MG CAP PO SCH ×2 (08:26→20:33)
[2020-01-29] MEDS: VITAMIN D 1,000 INTERNATIONAL UNITS TABLET PO SCH (08:26)
[2020-01-29] MEDS: BACLOFEN 10 MG TAB PO SCH ×2 (08:26→20:34)
[2020-01-29] MEDS: oxyCODONE 5MG TAB PO SCH (08:27)
[2020-01-29] MEDS: MIRALAX *UNIT DOSE* 17GM PACKET PO SCH (08:27)
[2020-01-29] MEDS: SERTRALINE 100 MG TAB PO SCH (08:27)
[2020-01-29] MEDS: TAMSULOSIN 0.4 MG CAP PO SCH (08:27)
[2020-01-29] MEDS: THIAMINE 100 MG TAB PO SCH (08:27)
[2020-01-29] MEDS: NYSTATIN 100,000 UNITS/GM TOPICAL PWD 15 GM TOP SCH (08:28)
[2020-01-29] MEDS: NYSTATIN CREAM 15 GM TOP SCH (08:28)
--- NOTE | 2020-01-29 08:46 | IPNPDOC ---
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 He was seen in [facility] January 11. [place] to have infection secondary to group B strep, discharged home with with P.O. Keflex. He worsened and had severe AMS and was then seen at [facility] for severe back pain, delerium with white blood count of 14K, CT abdomen and pelvis showed signs concerning for discitis and he was transferred January 16 to [facility] for higher level of care. Ruled out for NV with negative troponins, incidental finding of 1.4 x 0.9 cm hypoechoic structure left kidney noted on ultrasound. Workup included MRI 01/17 revealed a T11-T12 discitis with prevertebral phlegmon versus abscess, lumbar biopsy performed. Additionally noted was severe degenerative disc disease T12-L4, L5, S1 with abnormal vertebral marrow signal T11-12, likely due to bone edema and infection, clumping of the cauda equina nerve roots and severe narrowing of the central canal due to disc bulge and posterior osteophytes, CT angiogram chest and chest x-ray noted for diffuse nonspecific prominence of pulmonary insufficiency. 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 ID recommended IV ceftriaxone for 14 days then Min dose reduction on January 31 for an additional 4 weeks. Picc line placed for maintaining IV Access. Pain management was challenging requiring fentanyl, morphine and oxycodone apparently tolerated despite reported codeine allergy. Constipation was a significant problem, however he managed to have a BM just prior to transfer. Patient admitted to acute rehabilitation for pain management, strengthening, endurance cognitive and safety issues while also managing complex medical issues. First day on the unit, he had a good day after just one dose of 10mg oxycodone, however may have overdone it in therapy and experienced a difficult night with escalation of pain, agitation, crying out much of the night yesterday increased pain meds however he was unable to fully participate due to hypersomnolence and confusion as medications getting better sorted out through discussion with pharmacy and review of protocol being given just prior to his transfer to ARU. ALLERGY SPECIALIST pending for observed confusion, agitation, memory challenges and communication issues. Apparently found a few times in sweat soaked bedsheets. Has remained afebrile. Spoke to yesterday evening when patient had become calmer, clearer. This morning clear and in little discomfort with Lidoderm patches and Tylenol on board. Discussed plan to stay ahead of the pain and working together for timing of meds, proper positioning, participating in various therapies. He apparently has CPAP at home, requested to bring in, would be helpful to better establish sleep wake cycles and pain management during the day. REVIEW OF SYSTEMS: The following is a completed review of systems and has been reviewed. Review of systems otherwise unremarkable. PAIN: Low back and left more than right lower extremity EYES: double vision, uses prism glasses since brain surgery EARS, NOSE, & THROAT: No throat pain, or dysphagia, or rhinorrhea. CARDIOVASCULAR: Denies chest pain or palpitations. PULMONARY: Denies shortness of breath. GASTROINTESTINAL: Last BM prior to discharge was January 21 GENITOURINARY: .microscopic hematuria MUSCULOSKELETAL: . Severe low back pain NEUROLOGICAL:. Status post recent episode of encephalopathy related to sepsis, clearing HEMATOLOGICAL: Anemic, fatigued SKIN: .Had Tick bite on presentation, no target lesions, does have irritating interiginous rash, episodic sweating, better today PSYCHIATRIC: Increasing anxiety, episodes of confusion noted All other review of systems found to be negative. REVIEW OF SYSTEMS: ALLERGIES: See Below MEDICATIONS: Reviewed, see below. OBJECTIVE: VITAL SIGNS: Please see below. GENERAL: Pleasant, calm and communicative, occasionally tearful when describing earlier morning levels of discomfort, overall had a good night until abot 530am. HEENT: Extraocular movements intact. no adenopathy or thyromegaly. Full cervical range of motion Tenderness cervicothoracic region. CARDIOVASCULAR: S1 S2 regular LUNGS: Clear to auscultation bilaterally. No wheezes. No rhonchi. ABDOMEN: Soft, nontender, nondistended. Positive normal active bowel sounds. NEUROLOGICAL: Cranial nerves II through XII grossly intact. Sensation intact all 4 extremities. EXTREMITIES: 5/5 patent attorney, elbow flexion, elbow extension, knee extension, foot dorsiflexion, plantar flexion. SKIN: .Picc left inner arm. Skin over back warm, dry. FUNCTIONAL STATUS: Standby assistance with bathing, upper body dressing, minimal assist lower body dressing, CTGA toileting, short distance ambulation and bed mobility. Tendency for legs to buckle creates major falls risk. Fatigues very easily. Contact-guard assistance for toilet transfers, minimal assistance for lower body dressing, activities, limited by pain and ability to attend to task for long periods of time. LABORATORY DATA: Reviewed. Please see below.WBC better 9.2, slight drop H/H 10.6/35.8 MICROBIOLOGY: Please see below. 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 Group B strep bacteremia. Atrial fibrillation. Essential hypertension History of hematuria secondary to traumatic Ann placement. HLD. CAD s/p 2 prior stents Anemia. Diabetes last hemoglobin A1c 7.3 12/30/2019 Endocrine dysfunction s/p resection pituitary adenoma Hypothyroidism. History Hyponatremia. Sleep apnea Status posts hypoxemic respiratory failure. Tick bite Probable candidiasis ASSESSMENT:74 year-old right handed gentleman with past medical history of cortisone dependent endocrine deficiencies s/p remote resection of pituitary adenoma hat developed severe backpain with left lower extremity pain and generalized sepsis, failed conservative oral antibiotics for group B Strep as an outpatient prescribed after presentation at [facility] Jan 11, returned to [facility] and was referred to [facility] on for deterioration with encephalopathy, leukocytosis and eventual CT Guided lumbar biopsy 01/18 confirmed T11-T12 discitis, reportedly cultures no growth (was on antibiotics) however imaging did demonstrate Phlegmon vs abscess. Here for comprehensive rehabilitation, pain management and completion of IV antibiotics, monitoring closely for S/Sx of neurological deterioration. Has had a elo entry while we work to stay ahead of the pain instead of chasing the pain, without oversedation or other adverse side effects. Long pharmacy consultation held, tried daily long acting opiate combined with 1st line high dose Tylenol for breakthrough, bump up Baclofen for spasm/nerve discomfort, and provide additional oxycodone 5mg for further breakthrough pain Q6, however cognitive affects warrant adjustments. No 5mg Oxy IR available, will switch back to the Oxycodone 5mg previously tolerated as a scheduled 8am dose, preceeded by the Lidoderm patches at 5am, Tylenol 1000 at 6am and followed by Baclofen 10mg at 9am, spreading out meds, effects and see how how manages to participate and progress today. Continue adjustments until under control, then once consistently tolerating higher levels of activity without significant set back, proceed with weaning down doses to long range tolerable targets. Continue to have low threshold to re image for if sweats, fevers, AMS recur/worsen. PLAN: 1. Rehab- PT/OT advance gait and ADls, strengthen/stretch/maintain ROM all 4 limbs. We'll continue to work on timing pain medication with therapy inte rventions to optimize possible capacity to participate. 2. Neuro- clearing encephalopathy, polyradiculopathy, hx LEYLA-will need CPAP from home. 3. Ortho- T11-12 Discitis/osteomyelitis with probable cauda equina syndrome, DDD, Lumbar stenosis/listhesis s/p prior spine stabilization, continue IV Ceftri axone begun 01/17 for 2 weeks at current dose, then starting 02/01/20 an additional 4 weeks at reduced dose. Low threshold for re imaging if pain continues to be resistant or worsens or fever, worsening leukocytosis (10.1) noted along with current sweats and severe pain fluctuations. Pain management with modalities, has reported history of Afib s/p ablation, not on a pacemaker currently, low margin or juan vs potential benefit of short term trial TENS as another approach to help manage pain if medications continue to prove insufficient. Changed tizanidine to Baclofen for mm spasm and observing to see if less adverse cognitive side effect. 4. Cardiac- hx of CAD with Stents, afib, currently stable - Anemia-monitor, supplement as indicated -HTN -amlodipine -HLD- c/u statins 5. Resp -s/p hypoxia/respiratory failure during sepsis, now clear and stable on room air, continue incentive spirometry, monitor for infection 6. Endo- hx of post resection of pituitary adenoma with DM, hypothyroid, adrenal insufficiency, c/u insulin and ISS, thyroid replacement, steroids, family brought in Testosterone supplementation since not covered in pharmacy, however need proper labelling to administer on unit. FBS well controlled 103. 7. - episodic hematuria, incidental finding of renal ?cysts, monitor UA and output, PVR, bladder training if indicated. 8. GI ppx- s/p constipation, possible mild neurogenic bowel component, continue laxatives, history electrolyte imbalance, monitor and supplement as indicated. On steroids, at risk GI irritation. Na slightly low 134, will liberalize diet 9. Skin-nystatin creme then powder, air out skin areas 10.Tick bite, hopeful coverage with abx rx, observe for odd CV or Neurological manifestations, consider testing for Lymes. DISPOSITION Home with . TIME SPENT: Chart Review, examination and documentation 35 minutes. Allergies Coded Allergies: codeine (Verified Allergy, Intermediate, Rash, 01/17/20) gabapentin (Verified Adverse Reaction, Intermediate, JITTERY, 01/17/20) Vital Signs Vital Signs Date Time Temp Pulse Resp B/P (MAP) Pulse Ox O2 Delivery O2 Flow Rate FiO2 01/29/20 08:27 16 01/29/20 08:26 70 152/71 01/29/20 06:00 97.3 93 Room Air Laboratory Data CBC/BMP Laboratory Tests 01/29/20 06:31 Labs 24H Laboratory Tests 2 01/28/20 11:58: Bedside Glucose (Misc Panel) 182H 01/28/20 16:38: Bedside Glucose (Misc Panel) 148H 01/28/20 19:21: Bedside Glucose (Misc Panel) 255H 01/29/20 06:31: Immature Granulocyte % (Auto) 0.3, Neutrophils (%) (Auto) 67.0H, Lymphocytes (%) (Auto) 15.0L, Monocytes (%) (Auto) 14.3H, Eosinophils (%) (Auto) 2.2, Basophils (%) (Auto) 1.2H, Neutrophils # (Auto) 6.2, Lymphocytes # (Auto) 1.4L, Monocytes # (Auto) 1.3H, Eosinophils # (Auto) 0.2, Basophils # (Auto) 0.1, Nucleated Red Blood Cells % (auto) 0.0, Anion Gap 5L, Glomerular Filtration Rate > 60.0, Eyal cium Level 8.9 Current Medications Current Medications Current Medications Medications (Trade) Dose Ordered Sig/Bishnu Route PRN Reason Start Time Stop Time Status Last Admin Dose Admin Acetaminophen (Tylenol Arthritis Er) 1,300 mg Q8H PO 01/28/20 06:00 01/29/20 06:12 Albuterol Sulfate (Proventil, Ventolin Hfa) 2 puff Q4H PRN INH SOB/WHEEZING 01/26/20 17:00 Amlodipine Besylate (Norvasc) 5 mg DAILY PO 01/27/20 09:00 01/29/20 08:26 Apixaban (Eliquis) 5 mg BID PO 01/26/20 21:00 01/29/20 08:26 Baclofen (Lioresal) 10 mg BID PO 01/27/20 09:00 01/28/20 08:25 DC 01/28/20 08:14 Baclofen (Lioresal) 10 mg BID PO 01/29/20 09:00 01/29/20 08:26 Baclofen (Lioresal) 20 mg BID PO 01/28/20 21:00 01/29/20 07:05 DC 01/28/20 20:07 Bisacodyl (Dulcolax Suppository) 10 mg DAILY PRN IL CONSTIPATION 01/27/20 09:00 Ceftriaxone Sodium 2 gm/ Dextrose 50 ml @ 100 mls/hr Q12H IV 01/26/20 16:00 01/29/20 04:06 Ceftriaxone Sodium 2 gm/ Dextrose 50 ml @ 100 mls/hr Q12H IV 01/26/20 17:00 01/26/20 16:33 DC Dextrose (Dextrose 50%) 25 ml ASDIRECTED PRN IV SEE LABEL COMMENTS 01/26/20 16:45 Docusate Sodium (Colace) 100 mg BID PO 01/26/20 21:00 01/29/20 08:26 EZETIMIBE (Zetia) 10 mg QHS PO 01/26/20 21:00 01/28/20 20:07 Folic Acid (Folic Acid) 1 mg DAILY PO 01/27/20 09:00 01/29/20 08:25 Furosemide (Lasix) 20 mg DAILY PO 01/27/20 09:00 01/29/20 08:25 Glucagon (Glucagon) 1 mg ASDIRECTED PRN SC SEE LABEL COMMENTS 01/26/20 16:45 Glucose (Glucose) 16 GM ASDIRECTED PRN PO SEE LABEL COMMENTS 01/26/20 16:45 Heparin Sodium (Heparin (Flush)) 200 units ASDIRECTED PRN IV SEE LABEL COMMENTS 01/26/20 17:45 01/28/20 15:12 Heparin Sodium (Heparin (Flush)) 200 units PICC IV 01/26/20 18:00 01/29/20 06:14 Home Med (Med Rec Complete!) ASDIRECTED XX 01/26/20 15:45 01/26/20 15:33 DC Hydrocortisone (Cortef) 10 mg DAILY@1200 PO 01/27/20 12:00 01/28/20 12:18 Hydrocortisone (Cortef) 15 mg QAM PO 01/27/20 09:00 01/29/20 08:26 Insulin Human Lispro (HumaLOG INSULIN) See Protocol Table AC SC 01/26/20 17:30 01/28/20 17:58 Levothyroxine Sodium (Synthroid) 200 mcg DAILY@0600 PO 01/27/20 06:00 01/29/20 06:12 Lidocaine (Lidoderm Patch) 1 patch DAILY TOP 01/27/20 09:00 01/28/20 08:39 DC 01/28/20 08:15 Lidocaine (Lidoderm Patch) 2 patch DAILY TD 01/28/20 09:00 01/29/20 08:00 DC 01/29/20 06:11 Lidocaine (Lidoderm Patch) 2 patch DAILY@0500 TD 01/30/20 05:00 Lorazepam (Ativan) 0.5 mg Q8HP PRN PO ANXIETY 01/28/20 08:30 02/02/20 06:00 Losartan Potassium (Cozaar) 100 mg DAILY PO 01/27/20 09:00 01/29/20 08:25 Multivitamins (Theragram-M) 1 tab DAILY PO 01/27/20 09:00 01/29/20 08:26 Nitroglycerin (Nitrostat (1/ 150)) 0.4 mg ASDIRECTED PRN SL CHEST PAIN 01/26/20 16:00 Non-Formulary Medication ( See Comment Field Below ) REMOVE LIDODERM PATCH DAILY@21 XX 01/28/20 21:00 01/28/20 20:08 Non-Formulary Medication ( See Comment Field Below ) REMOVE LIDODERM PATCH DAILY@21 XX 01/26/20 21:00 01/28/20 08:39 DC 01/27/20 20:11 Nystatin (Mycostatin Powder, Nystop) may sprinkle over ba... DAILY TOP 01/28/20 09:00 01/29/20 08:28 Nystatin (Mycostatin) apply to groin and perin... DAILY TOP 01/26/20 18:00 01/29/20 08:28 Oxycodone HCl (OxyCONTIN) 5 mg BID PRN PO PAIN LEVEL 7-10 01/29/20 07:00 01/29/20 07:57 DC Oxycodone HCl (OxyCONTIN) 10 mg BID PO 01/28/20 21:00 01/29/20 07:05 DC 01/28/20 20:07 Oxycodone HCl (Roxicodone, Oxyir) 5 mg DAILY@0800 PO 01/29/20 08:00 01/29/20 08:27 Oxycodone HCl (Roxicodone, Oxyir) 5 mg Q6H PRN PO MILD/MODERATE PAIN (PS 1-7) 01/28/20 08:00 01/28/20 08:31 DC Oxycodone HCl (Roxicodone, Oxyir) 5 mg Q6H PRN PO BREAKTHROUGH PAIN 01/28/20 08:30 01/29/20 07:05 DC Oxycodone HCl (Roxicodone, Oxyir) 5 mg Q6HP PRN PO PAIN LEVEL 4-7 01/29/20 07:00 Oxycodone HCl (Roxicodone, Oxyir) 10 mg Q4H PRN PO SEVERE PAIN (PS 8-10) 01/27/20 09:15 01/28/20 08:48 DC 01/28/20 07:01 Pantoprazole Sodium (Protonix) 40 mg DAILY PO 01/27/20 09:00 01/29/20 08:26 Polyethylene Glycol (Miralax) 1 pkt DAILY PO 01/27/20 09:00 01/29/20 08:27 Pramipexole Dihydrochloride (Mirapex) 0.5 mg BID PO 01/26/20 21:00 01/28/20 08:47 DC 01/28/20 08:14 Pramipexole Dihydrochloride (Mirapex) 0.5 mg BID@0600,2100 PO 01/28/20 21:00 01/29/20 06:12 Rosuvastatin Calcium (Crestor) 40 mg QHS PO 01/26/20 21:00 01/28/20 20:06 Salmeterol Xinafoate/ Fluticasone (Advair Hfa 230/ ) 2 puff RBID INH 01/26/20 20:00 01/28/20 20:24 Senna (Senokot) 1 tab QHS PO 01/26/20 21:00 01/28/20 20:07 Sertraline HCl (Zoloft) 150 mg DAILY PO 01/27/20 09:00 01/29/20 08:27 Sodium Chloride (Saline Lock Flush) 10 ml ASDIRECTED PRN IV SEE LABEL COMMENTS 01/26/20 17:45 01/28/20 15:12 Sodium Chloride (Saline Lock Flush) 10 ml PICC IV 01/26/20 18:00 01/29/20 06:14 Tamsulosin HCl (Flomax) 0.4 mg DAILY PO 01/27/20 09:00 01/29/20 08:27 Thiamine HCl (Thiamine HCl) 100 mg DAILY PO 01/27/20 09:00 01/29/20 08:27 Tizanidine HCl (Zanaflex) 2 mg Q8HP PRN PO BACK PAIN 01/26/20 17:15 01/27/20 07:04 DC 01/27/20 00:45 Tizanidine HCl (Zanaflex) 2 mg Q8HP PRN PO BACK PAIN 01/26/20 17:15 01/26/20 17:27 DC Tramadol HCl (Ultram) 50 mg Q6H PRN PO PAIN 01/26/20 18:00 01/27/20 07:01 DC 01/27/20 05:14 Tramadol HCl (Ultram) 75 mg Q6H PRN PO PAIN 01/27/20 12:00 01/28/20 08:36 DC 01/28/20 06:26 Vitamin D (Vitamin D) 5,000 units DAILY PO 01/27/20 09:00 01/29/20 08:26 FATMATA DHALIWAL MD Jan 29, 2020 08:46
[2020-01-29] MEDS: ADVAIR HFA 230/21MCG INHALER INH SCH ×2 (09:08→20:40)
[2020-01-29 14:00] VITALS: BP 123/58
[2020-01-29] MEDS: SODIUM CHLORIDE 0.9% INJ 10 ML SYR IV PRN (15:15)
[2020-01-29 20:00] VITALS: BP 122/66
[2020-01-29] MEDS: ROSUVASTATIN 10 MG TAB (CRESTOR) PO SCH (20:33)
[2020-01-29] MEDS: SENNA 8.6 MG TAB (SENOKOT) PO SCH (20:33)
[2020-01-29] MEDS: EZETIMIBE 10 MG TAB (ZETIA) PO SCH (20:33)
[2020-01-29] MEDS: **NOTE PATIENT COMMENT** MISC XX SCH (20:34)
[2020-01-30] MEDS: cefTRIAXone SOD 2 GM in D5W MINI-BAG PLUS 50 ML IV SCH ×2 (04:22→16:35)
[2020-01-30] MEDS: SODIUM CHLORIDE 0.9% INJ 10 ML SYR IV SCH ×2 (04:22→17:16)
[2020-01-30] MEDS: PRAMIPEXOLE 0.25 MG TAB PO SCH ×2 (05:33→21:42)
[2020-01-30] MEDS: ACETAMINOPHEN 650MG ER TAB (TYLENOL ARTHRITIS) PO SCH ×3 (05:33→21:42)
[2020-01-30] MEDS: LEVOTHYROXINE 100MCG TABLET (0.1MG) PO SCH (05:33)
[2020-01-30] MEDS: LIDOCAINE 5% (LIDODERM) PATCH TD SCH (05:35)
[2020-01-30 06:00] VITALS: BP 158/80
[2020-01-30] MEDS: ADVAIR HFA 230/21MCG INHALER INH SCH ×2 (07:23→20:16)
[2020-01-30] MEDS: APIXABAN 5 MG TAB (ELIQUIS) PO SCH ×2 (08:14→21:41)
[2020-01-30] MEDS: MIRALAX *UNIT DOSE* 17GM PACKET PO SCH (08:14)
[2020-01-30] MEDS: VITAMIN D 1,000 INTERNATIONAL UNITS TABLET PO SCH (08:14)
[2020-01-30] MEDS: PANTOPRAZOLE 40MG TAB (PROTONIX) PO SCH (08:15)
[2020-01-30] MEDS: FOLIC ACID 1 MG TAB PO SCH (08:15)
[2020-01-30] MEDS: MULTIVITAMINS/MINERALS THERAP 1 TAB PO SCH (08:15)
[2020-01-30] MEDS: THIAMINE 100 MG TAB PO SCH (08:18)
[2020-01-30] MEDS: LOSARTAN 50MG TABLET PO SCH (08:18)
[2020-01-30] MEDS: amLODIPine 5 MG TAB PO SCH (08:19)
[2020-01-30] MEDS: FUROSEMIDE 20 MG TAB PO SCH (08:20)
[2020-01-30] MEDS: BACLOFEN 10 MG TAB PO SCH ×2 (08:20→21:41)
[2020-01-30] MEDS: oxyCODONE 5MG TAB PO SCH (08:20)
[2020-01-30] MEDS: TAMSULOSIN 0.4 MG CAP PO SCH (08:20)
[2020-01-30] MEDS: NYSTATIN CREAM 15 GM TOP SCH (08:21)
[2020-01-30] MEDS: HYDROCORTISONE 10 MG TAB PO SCH ×2 (08:21→13:47)
[2020-01-30] MEDS: SERTRALINE 100 MG TAB PO SCH (08:21)
[2020-01-30] MEDS: NYSTATIN 100,000 UNITS/GM TOPICAL PWD 15 GM TOP SCH (08:22)
[2020-01-30] MEDS: HumaLOG INSULIN (NovoLOG) PER UNIT SC SCH ×3 (08:24→17:15)
[2020-01-30 08:31] VITALS: BP 140/65
[2020-01-30] MEDS ORDERED: BISACODYL 10 MG SUPP PR PRN (09:00)
[2020-01-30] MEDS ORDERED: BISACODYL 10 MG SUPP PR ONE (09:15)
[2020-01-30] MEDS: DOCUSATE SODIUM 100 MG CAP PO SCH ×2 (11:36→21:41)
--- NOTE | 2020-01-30 13:40 | IPNPDOC ---
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 He was seen in [facility] January 11. [place] to have infection secondary to group B strep, discharged home with with P.O. Keflex. He worsened and had severe AMS and was then seen at [facility] for severe back pain, delerium with white blood count of 14K, CT abdomen and pelvis showed signs concerning for discitis and he was transferred [facility] for higher level of care. Ruled out for OH with negative troponins, incidental finding of 1.4 x 0.9 cm hypoechoic structure left kidney noted on ultrasound. Workup included MRI 01/17 revealed a T11-T12 discitis with prevertebral phlegmon versus abscess, lumbar biopsy performed. Additionally noted was severe degenerative disc disease T12-L4, L5, S1 with abnormal vertebral marrow signal T11-12, likely due to bone edema and infection, clumping of the cauda equina nerve roots and severe narrowing of the central canal due to disc bulge and posterior osteophytes, CT angiogram chest and chest x-ray noted for diffuse nonspecific prominence of pulmonary insufficiency. 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 ID recommended IV ceftriaxone for 14 days then Min dose reduction on January 31 for an additional 4 weeks. Picc line placed for maintaining IV Access. Pain management was challenging requiring fentanyl, morphine and oxycodone apparently tolerated despite reported codeine allergy. Constipation was a significant problem, however he managed to have a BM just prior to transfer. Patient admitted to acute rehabilitation for pain management, strengthening, endurance cognitive and safety issues while also managing complex medical issues. First day on the unit, he had a good day after just one dose of 10mg oxycodone, however may have overdone it in therapy and experienced a difficult night with escalation of pain, agitation, crying out much of the night yesterday increased pain meds however he was unable to fully participate due to hypersomnolence and confusion as medications getting better sorted out through discussion with pharmacy and review of protocol being given just prior to his transfer to ARU. ANIMAL STUNNER pending for observed confusion, agitation, memory karissa llenges and communication issues. Apparently found a few times in sweat soaked bedsheets. Has remained afebrile. Spoke to yesterday evening when patient had become calmer, clearer. This morning clear and in little discomfort with Lidoderm patches and Tylenol on board. Plan to stay ahead of the pain and working together for timing of meds, proper positioning seems to be working better. No episodes of excruciating pain yesterday or overnight and more consistently able to participate in various therapies.His CPAP at home apparently does not exist. It would be helpful to better establish sleep wake cycles which will help with pain management and hypersomnolent moments during the day. REVIEW OF SYSTEMS: The following is a completed review of systems and has been reviewed. Review of systems otherwise unremarkable. PAIN: Low back and left more than right lower extremity EYES: double vision, uses prism glasses since brain surgery EARS, NOSE, & THROAT: No throat pain, or dysphagia, or rhinorrhea. CARDIOVASCULAR: Denies chest pain or palpitations. PULMONARY: Denies shortness of breath. GASTROINTESTINAL: GENITOURINARY: .microscopic hematuria MUSCULOSKELETAL: . Severe low back pain NEUROLOGICAL:. Status post recent episode of encephalopathy related to sepsis, clearing HEMATOLOGICAL: Anemic, fatigued SKIN: .Had Tick bite on presentation, no target lesions, does have irritating interiginous rash, episodic sweating, better today PSYCHIATRIC: Increasing anxiety, episodes of confusion noted All other review of systems found to be negative. REVIEW OF SYSTEMS: ALLERGIES: See Below MEDICATIONS: Reviewed, see below. OBJECTIVE: VITAL SIGNS: Please see below. GENERAL: Pleasant, calm and communicative, occasionally tearful when describing earlier morning levels of discomfort, overall had a good night until abot 530am. HEENT: Extraocular movements intact. no adenopathy or thyromegaly. Full cervical range of motion Tenderness cervicothoracic region. CARDIOVASCULAR: S1 S2 regular LUNGS: Clear to auscultation bilaterally. No wheezes. No rhonchi. ABDOMEN: Soft, nontender, nondistended. Positive normal active bowel sounds. NEUROLOGICAL: Cranial nerves II through XII grossly intact. Sensation intact all 4 extremities. EXTREMITIES: 5/5 academic physician, elbow flexion, elbow extension, knee extension, foot dorsiflexion, plantar flexion. SKIN: .Picc left inner arm. Skin over back warm, dry. FUNCTIONAL STATUS: Standby assistance with bathing, upper body dressing, minimal assist lower body dressing, CTGA toileting, short distance ambulation and bed mobility, working on core strength, inclusion of abdominal binder for spine stabilization during bed mobility and transitional movement, which may help reduce inciting pain. Tendency for legs to buckle creates major falls risk. Fatigues very easily. LABORATORY DATA: Reviewed. Please see below.WBC better 9.2, slight drop H/H 10.6/35.8, sodium slightly low 134 MICROBIOLOGY: Lymes pending ASSESSMENT AND PLAN: DIAGNOSES: Low back pain with left-sided lower extremity pain OA spine with multilevel DDD and Lumbar Stenosis Discitis s/p Sepsis Spinal Osteomyelitis Polyradiculoneuropathy with Cauda Equina syndrome Encephalopathy. Group B strep bacteremia. Atrial fibrillation. Essential hypertension History of hematuria secondary to traumatic Ann placement. HLD. CAD s/p 2 prior stents Anemia. Diabetes last hemoglobin A1c 7.3 12/30/2019 Endocrine dysfunction s/p resection pituitary adenoma Hypothyroidism. Hyponatremia. Sleep apnea Status posts hypoxemic respiratory failure. Tick bite Probable candidiasis ASSESSMENT:74 year-old right handed gentleman with past medical history of cortisone dependent endocrine deficiencies s/p remote resection of pituitary adenoma hat developed severe backpain with left lower extremity pain and generalized sepsis, failed conservative oral antibiotics for group B Strep as an outpatient prescribed after presentation at [facility] Jan 11, returned to [facility] and was referred to [facility] on for deterioration with encephalopathy, leukocytosis and eventual CT Guided lumbar biopsy 01/18 confirmed T11-T12 discitis, reportedly cultures no growth (was on antibiotics) however imaging did demonstrate Phlegmon vs abscess. Here for comprehensive rehabilitation, pain management and completion of IV antibiotics, monitoring closely for S/Sx of neurological deterioration. Has had a elo entry while we work to stay ahead of the pain instead of chasing the pain, without oversedation or other adverse side effects. Long pharmacy consultation held, tried daily long acting opiate combined with 1st line high dose Tylenol for breakthrough, bump up Baclofen for spasm/nerve discomfort, and provide additional oxycodone 5mg for further breakthrough pain Q6, however cognitive affects warrant adj ustments. No 5mg Oxy IR available, switched back to the Oxycodone 5mg previously tolerated as a scheduled 8am dose, preceeded by the Lidoderm patches at 5am, Tylenol 1000 at 6am and followed by Baclofen 10mg at 9am, spreading out meds seems to be working well. Continue adjustments until under control, then once consistently tolerating higher levels of activity without significant set back, proceed with weaning down doses to long range tolerable targets. Continue to have low threshold to re image for if sweats, fevers, AMS recur/worsen. PLAN: 1. Rehab- PT/OT advance gait and ADls, strengthen/stretch/maintain ROM all 4 limbs. We'll continue to work on timing pain medication with therapy interventions to optimize possible capacity to participate. 2. Neuro- clearing encephalopathy, polyradiculopathy, hx LEYLA-will need CPAP from home. 3. Ortho- T11-12 Discitis/osteomyelitis with probable cauda equina syndrome, DDD, Lumbar stenosis/listhesis s/p prior spine stabilization, continue IV Ceftriaxone begun 01/17 for 2 weeks at current dose, then starting 02/01/20 an additional 4 weeks at reduced dose. Low threshold for re imaging if pain continu es to be resistant or worsens or fever, worsening leukocytosis (10.1) noted along with current sweats and severe pain fluctuations. Pain management with modalities, has reported history of Afib s/p ablation, not on a pacemaker currently, low margin or juan vs potential benefit of short term trial TENS as another approach to help manage pain if medications continue to prove insuffi cient. Changed tizanidine to Baclofen for mm spasm and observing to see if less adverse cognitive side effect. 4. Cardiac- hx of CAD with Stents, afib, currently stable - Anemia-monitor, supplement as indicated -HTN -amlodipine -HLD- c/u statins 5. Resp -s/p hypoxia/respiratory failure during sepsis, now clear and stable on room air, continue incentive spirometry, monitor for infection 6. Endo- hx of post resection of pituitary adenoma with DM, hypothyroid, adrenal insufficiency, c/u insulin and ISS, thyroid replacement, steroids, family brought in Testosterone supplementation since not covered in pharmacy, however need proper labelling to administer on unit. FBS well controlled 103. 7. - episodic hematuria, incidental finding of renal ?cysts, monitor UA and output, PVR, bladder training if indicated. 8. GI ppx- s/p constipation, possible mild neurogenic bowel component, continue laxatives, add suppository/SCI bowel program. Continued electrolyte imbalance, monitor and supplement as indicated. On steroids, at risk GI irritation. Na slightly low 134, will liberalize diet 9. Skin-nystatin creme then powder, air out skin areas 10.Tick bite, hopeful coverage with abx rx, observe for odd CV or Neurological manifestations, testing pending for Lymes. DISPOSITION Home with . TIME SPENT: Chart Review, examination and documentation 35 minutes. Allergies Coded Allergies: codeine (Verified Allergy, Intermediate, Rash, 01/17/20) gabapentin (Verified Adverse Reaction, Intermediate, JITTERY, 01/17/20) Vital Signs Vital Signs Date Time Temp Pulse Resp B/P (MAP) Pulse Ox O2 Delivery O2 Flow Rate FiO2 01/30/20 10:14 18 Room Air 01/30/20 08:31 55 140/65 (90) 01/30/20 06:00 98.5 99 Laboratory Data Labs 24H Laboratory Tests 2 01/29/20 16:41: Bedside Glucose (Misc Panel) 224H 01/29/20 19:48: Bedside Glucose (Misc Panel) 191H 01/30/20 05:38: Bedside Glucose (Misc Panel) 105 01/30/20 06:47: 01/30/20 11:47: Bedside Glucose (Misc Panel) 127H Current Medications Current Medications Current Medications Medications (Trade) Dose Ordered Sig/Bishnu Route PRN Reason Start Time Stop Time Status Last Admin Dose Admin Acetaminophen (Tylenol Arthritis Er) 1,300 mg Q8H PO 01/28/20 06:00 01/30/20 05:33 Albuterol Sulfate (Proventil, Ventolin Hfa) 2 puff Q4H PRN INH SOB/WHEEZING 01/26/20 17:00 Amlodipine Besylate (Norvasc) 5 mg DAILY PO 01/27/20 09:00 01/30/20 08:19 Apixaban (Eliquis) 5 mg BID PO 01/26/20 21:00 01/30/20 08:14 Baclofen (Lioresal) 10 mg BID PO 01/27/20 09:00 01/28/20 08:25 DC 01/28/20 08:14 Baclofen (Lioresal) 10 mg BID PO 01/29/20 09:00 01/30/20 08:20 Baclofen (Lioresal) 20 mg BID PO 01/28/20 21:00 01/29/20 07:05 DC 01/28/20 20:07 Bisacodyl (Dulcolax Suppository) 10 mg 3XWP PRN WI CONSTIPATION 01/30/20 09:00 Bisacodyl (Dulcolax Suppository) 10 mg DAILY PRN WI CONSTIPATION 01/27/20 09:00 01/30/20 09:08 DC Ceftriaxone Sodium 2 gm/ Dextrose 50 ml @ 100 mls/hr Q12H IV 01/26/20 16:00 01/30/20 04:22 Ceftriaxone Sodium 2 gm/ Dextrose 50 ml @ 100 mls/hr Q12H IV 01/26/20 17:00 01/26/20 16:33 DC Dextrose (Dextrose 50%) 25 ml ASDIRECTED PRN IV SEE LABEL COMMENTS 01/26/20 16:45 Docusate Sodium (Colace) 100 mg BID PO 01/26/20 21:00 01/30/20 11:36 EZETIMIBE (Zetia) 10 mg QHS PO 01/26/20 21:00 01/29/20 20:33 Folic Acid (Folic Acid) 1 mg DAILY PO 01/27/20 09:00 01/30/20 08:15 Furosemide (Lasix) 20 mg DAILY PO 01/27/20 09:00 01/30/20 08:20 Glucagon (Glucagon) 1 mg ASDIRECTED PRN SC SEE LABEL COMMENTS 01/26/20 16:45 Glucose (Glucose) 16 GM ASDIRECTED PRN PO SEE LABEL COMMENTS 01/26/20 16:45 Heparin Sodium (Heparin (Flush)) 200 units ASDIRECTED PRN IV SEE LABEL COMMENTS 01/26/20 17:45 01/29/20 15:15 Heparin Sodium (Heparin (Flush)) 200 units PICC IV 01/26/20 18:00 01/30/20 04:22 Home Med (Med Rec Complete!) ASDIRECTED XX 01/26/20 15:45 01/26/20 15:33 DC Hydrocortisone (Cortef) 10 mg DAILY@1200 PO 01/27/20 12:00 01/29/20 12:32 Hydrocortisone (Cortef) 15 mg QAM PO 01/27/20 09:00 01/30/20 08:21 Insulin Human Lispro (HumaLOG INSULIN) See Protocol Table AC SC 01/26/20 17:30 01/30/20 08:24 Levothyroxine Sodium (Synthroid) 200 mcg DAILY@0600 PO 01/27/20 06:00 01/30/20 05:33 Lidocaine (Lidoderm Patch) 1 patch DAILY TOP 01/27/20 09:00 01/28/20 08:39 DC 01/28/20 08:15 Lidocaine (Lidoderm Patch) 2 patch DAILY TD 01/28/20 09:00 01/29/20 08:00 DC 01/29/20 06:11 Lidocaine (Lidoderm Patch) 2 patch DAILY@0500 TD 01/30/20 05:00 01/30/20 05:35 Lorazepam (Ativan) 0.5 mg Q8HP PRN PO ANXIETY 01/28/20 08:30 02/02/20 06:00 Losartan Potassium (Cozaar) 100 mg DAILY PO 01/27/20 09:00 01/30/20 08:18 Multivitamins (Theragram-M) 1 tab DAILY PO 01/27/20 09:00 01/30/20 08:15 Nitroglycerin (Nitrostat (1/ 150)) 0.4 mg ASDIRECTED PRN SL CHEST PAIN 01/26/20 16:00 Non-Formulary Medication ( See Comment Field Below ) REMOVE LIDODERM PATCH DAILY@21 XX 01/28/20 21:00 01/29/20 20:34 Non-Formulary Medication ( See Comment Field Below ) REMOVE LIDODERM PATCH DAILY@21 XX 01/26/20 21:00 01/28/20 08:39 DC 01/27/20 20:11 Nystatin (Mycostatin Powder, Nystop) may sprinkle over ba... DAILY TOP 01/28/20 09:00 01/30/20 08:22 Nystatin (Mycostatin) apply to groin and perin... DAILY TOP 01/26/20 18:00 01/30/20 08:21 Oxycodone HCl (OxyCONTIN) 5 mg BID PRN PO PAIN LEVEL 7-10 01/29/20 07:00 01/29/20 07:57 DC Oxycodone HCl (OxyCONTIN) 10 mg BID PO 01/28/20 21:00 01/29/20 07:05 DC 01/28/20 20:07 Oxycodone HCl (Roxicodone, Oxyir) 5 mg DAILY@0800 PO 01/29/20 08:00 01/30/20 08:20 Oxycodone HCl (Roxicodone, Oxyir) 5 mg Q6H PRN PO MILD/MODERATE PAIN (PS 1-7) 01/28/20 08:00 01/28/20 08:31 DC Oxycodone HCl (Roxicodone, Oxyir) 5 mg Q6H PRN PO BREAKTHROUGH PAIN 01/28/20 08:30 01/29/20 07:05 DC Oxycodone HCl (Roxicodone, Oxyir) 5 mg Q6HP PRN PO PAIN LEVEL 4-7 01/29/20 07:00 Oxycodone HCl (Roxicodone, Oxyir) 10 mg Q4H PRN PO SEVERE PAIN (PS 8-10) 01/27/20 09:15 01/28/20 08:48 DC 01/28/20 07:01 Pantoprazole Sodium (Protonix) 40 mg DAILY PO 01/27/20 09:00 01/30/20 08:15 Polyethylene Glycol (Miralax) 1 pkt DAILY PO 01/27/20 09:00 01/30/20 08:14 Pramipexole Dihydrochloride (Mirapex) 0.5 mg BID PO 01/26/20 21:00 01/28/20 08:47 DC 01/28/20 08:14 Pramipexole Dihydrochloride (Mirapex) 0.5 mg BID@0600,2100 PO 01/28/20 21:00 01/30/20 05:33 Rosuvastatin Calcium (Crestor) 40 mg QHS PO 01/26/20 21:00 01/29/20 20:33 Salmeterol Xinafoate/ Fluticasone (Advair Hfa 230/ ) 2 puff RBID INH 01/26/20 20:00 01/30/20 07:23 Senna (Senokot) 1 tab QHS PO 01/26/20 21:00 01/29/20 20:33 Sertraline HCl (Zoloft) 150 mg DAILY PO 01/27/20 09:00 01/30/20 08:21 Sodium Chloride (Saline Lock Flush) 10 ml ASDIRECTED PRN IV SEE LABEL COMMENTS 01/26/20 17:45 01/29/20 15:15 Sodium Chloride (Saline Lock Flush) 10 ml PICC IV 01/26/20 18:00 01/30/20 04:22 Tamsulosin HCl (Flomax) 0.4 mg DAILY PO 01/27/20 09:00 01/30/20 08:20 Thiamine HCl (Thiamine HCl) 100 mg DAILY PO 01/27/20 09:00 01/30/20 08:18 Tizanidine HCl (Zanaflex) 2 mg Q8HP PRN PO BACK PAIN 01/26/20 17:15 01/27/20 07:04 DC 01/27/20 00:45 Tizanidine HCl (Zanaflex) 2 mg Q8HP PRN PO BACK PAIN 01/26/20 17:15 01/26/20 17:27 DC Tramadol HCl (Ultram) 50 mg Q6H PRN PO PAIN 01/26/20 18:00 01/27/20 07:01 DC 01/27/20 05:14 Tramadol HCl (Ultram) 75 mg Q6H PRN PO PAIN 01/27/20 12:00 01/28/20 08:36 DC 01/28/20 06:26 Vitamin D (Vitamin D) 5,000 units DAILY PO 01/27/20 09:00 01/30/20 08:14 FATMATA DHALIWAL MD Jan 30, 2020 13:40
[2020-01-30 14:00] VITALS: BP 137/61
[2020-01-30 21:00] VITALS: BP 134/63
[2020-01-30] MEDS: oxyCODONE 5MG TAB PO PRN (21:41)
[2020-01-30] MEDS: SENNA 8.6 MG TAB (SENOKOT) PO SCH (21:41)
[2020-01-30] MEDS: ROSUVASTATIN 10 MG TAB (CRESTOR) PO SCH (21:41)
[2020-01-30] MEDS: EZETIMIBE 10 MG TAB (ZETIA) PO SCH (21:41)
[2020-01-30] MEDS: **NOTE PATIENT COMMENT** MISC XX SCH (21:42)
[2020-01-31] MEDS: cefTRIAXone SOD 2 GM in D5W MINI-BAG PLUS 50 ML IV SCH ×2 (04:20→15:47)
[2020-01-31] MEDS: LIDOCAINE 5% (LIDODERM) PATCH TD SCH (05:05)
[2020-01-31] MEDS: ACETAMINOPHEN 650MG ER TAB (TYLENOL ARTHRITIS) PO SCH ×3 (05:05→21:11)
[2020-01-31] MEDS: LEVOTHYROXINE 100MCG TABLET (0.1MG) PO SCH (05:05)
[2020-01-31] MEDS: PRAMIPEXOLE 0.25 MG TAB PO SCH ×2 (05:05→21:10)
[2020-01-31] MEDS: SODIUM CHLORIDE 0.9% INJ 10 ML SYR IV PRN ×2 (05:06→16:29)
[2020-01-31] MEDS: SODIUM CHLORIDE 0.9% INJ 10 ML SYR IV SCH ×2 (05:06→16:28)
[2020-01-31 06:06] VITALS: BP 158/76
[2020-01-31] MEDS: HumaLOG INSULIN (NovoLOG) PER UNIT SC SCH ×3 (07:06→17:20)
[2020-01-31] MEDS: ADVAIR HFA 230/21MCG INHALER INH SCH ×2 (07:51→20:03)
[2020-01-31] MEDS: oxyCODONE 5MG TAB PO SCH (08:53)
[2020-01-31] MEDS: HYDROCORTISONE 10 MG TAB PO SCH ×2 (08:53→12:05)
[2020-01-31] MEDS: TAMSULOSIN 0.4 MG CAP PO SCH (08:54)
[2020-01-31] MEDS: VITAMIN D 1,000 INTERNATIONAL UNITS TABLET PO SCH (08:54)
[2020-01-31] MEDS: FUROSEMIDE 20 MG TAB PO SCH (08:54)
[2020-01-31] MEDS: amLODIPine 5 MG TAB PO SCH (08:55)
[2020-01-31] MEDS: SERTRALINE 100 MG TAB PO SCH (08:56)
[2020-01-31] MEDS: PANTOPRAZOLE 40MG TAB (PROTONIX) PO SCH (08:56)
[2020-01-31] MEDS: BACLOFEN 10 MG TAB PO SCH ×2 (08:56→21:11)
[2020-01-31] MEDS: APIXABAN 5 MG TAB (ELIQUIS) PO SCH ×2 (08:56→21:11)
[2020-01-31] MEDS: THIAMINE 100 MG TAB PO SCH (08:56)
[2020-01-31] MEDS: DOCUSATE SODIUM 100 MG CAP PO SCH ×2 (08:57→21:11)
[2020-01-31] MEDS: MULTIVITAMINS/MINERALS THERAP 1 TAB PO SCH (08:57)
[2020-01-31] MEDS: LOSARTAN 50MG TABLET PO SCH (08:58)
[2020-01-31] MEDS: NYSTATIN CREAM 15 GM TOP SCH (08:59)
[2020-01-31] MEDS: MIRALAX *UNIT DOSE* 17GM PACKET PO SCH (09:00)
[2020-01-31] MEDS: NYSTATIN 100,000 UNITS/GM TOPICAL PWD 15 GM TOP SCH (09:00)
[2020-01-31] MEDS ORDERED: ENTER DRUG NAME HERE (PATIENT'S OWN MED) TOP SCH (09:00)
[2020-01-31] MEDS: FOLIC ACID 1 MG TAB PO SCH (09:03)
[2020-01-31 14:00] VITALS: BP 119/59
[2020-01-31 14:11] LABS: Lyme Disease IgG/IgM Antibodie <0.91 ISR (0.00-0.90); Lyme Disease IgM Ab Quantitati <0.80 index (0.00-0.79)
[2020-01-31 20:00] VITALS: BP 117/59
[2020-01-31] MEDS: EZETIMIBE 10 MG TAB (ZETIA) PO SCH (21:11)
[2020-01-31] MEDS: ROSUVASTATIN 10 MG TAB (CRESTOR) PO SCH (21:11)
[2020-01-31] MEDS: SENNA 8.6 MG TAB (SENOKOT) PO SCH (21:11)
[2020-01-31] MEDS: **NOTE PATIENT COMMENT** MISC XX SCH (21:12)
[2020-02-01] MEDS: oxyCODONE 5MG TAB PO PRN ×2 (00:07→16:13)
[2020-02-01] MEDS: cefTRIAXone SOD 2 GM in D5W MINI-BAG PLUS 50 ML IV SCH ×2 (04:52→16:12)
[2020-02-01] MEDS: ACETAMINOPHEN 650MG ER TAB (TYLENOL ARTHRITIS) PO SCH ×3 (05:28→21:14)
[2020-02-01] MEDS: LEVOTHYROXINE 100MCG TABLET (0.1MG) PO SCH (05:29)
[2020-02-01] MEDS: PRAMIPEXOLE 0.25 MG TAB PO SCH ×2 (05:29→21:13)
[2020-02-01] MEDS: LIDOCAINE 5% (LIDODERM) PATCH TD SCH (05:30)
[2020-02-01] MEDS: SODIUM CHLORIDE 0.9% INJ 10 ML SYR IV SCH ×2 (05:30→16:57)
[2020-02-01 05:56] VITALS: BP 146/91
[2020-02-01] MEDS: ADVAIR HFA 230/21MCG INHALER INH SCH ×2 (07:15→19:39)
[2020-02-01] MEDS: HumaLOG INSULIN (NovoLOG) PER UNIT SC SCH ×3 (07:30→16:57)
[2020-02-01] MEDS: TAMSULOSIN 0.4 MG CAP PO SCH (08:12)
[2020-02-01] MEDS: DOCUSATE SODIUM 100 MG CAP PO SCH ×2 (08:12→21:14)
[2020-02-01] MEDS: oxyCODONE 5MG TAB PO SCH (08:13)
[2020-02-01] MEDS: HYDROCORTISONE 10 MG TAB PO SCH ×2 (08:13→12:42)
[2020-02-01] MEDS: VITAMIN D 1,000 INTERNATIONAL UNITS TABLET PO SCH (08:13)
[2020-02-01] MEDS: FUROSEMIDE 20 MG TAB PO SCH (08:14)
[2020-02-01] MEDS: THIAMINE 100 MG TAB PO SCH (08:14)
[2020-02-01] MEDS: FOLIC ACID 1 MG TAB PO SCH (08:14)
[2020-02-01] MEDS: MULTIVITAMINS/MINERALS THERAP 1 TAB PO SCH (08:14)
[2020-02-01] MEDS: APIXABAN 5 MG TAB (ELIQUIS) PO SCH ×2 (08:14→21:14)
[2020-02-01] MEDS: BACLOFEN 10 MG TAB PO SCH ×2 (08:14→21:13)
[2020-02-01] MEDS: PANTOPRAZOLE 40MG TAB (PROTONIX) PO SCH (08:14)
[2020-02-01] MEDS: SERTRALINE 100 MG TAB PO SCH (08:14)
[2020-02-01] MEDS: amLODIPine 5 MG TAB PO SCH (08:14)
[2020-02-01] MEDS: LOSARTAN 50MG TABLET PO SCH (08:15)
[2020-02-01] MEDS: MIRALAX *UNIT DOSE* 17GM PACKET PO SCH (08:15)
[2020-02-01] MEDS: NYSTATIN CREAM 15 GM TOP SCH (08:16)
[2020-02-01] MEDS: NYSTATIN 100,000 UNITS/GM TOPICAL PWD 15 GM TOP SCH (10:29)
[2020-02-01] MEDS: TESTIM TOP SCH (10:52)
[2020-02-01 14:00] VITALS: BP 106/50
[2020-02-01 20:00] VITALS: BP 139/65
[2020-02-01] MEDS: EZETIMIBE 10 MG TAB (ZETIA) PO SCH (21:13)
[2020-02-01] MEDS: ROSUVASTATIN 10 MG TAB (CRESTOR) PO SCH (21:14)
[2020-02-01] MEDS: **NOTE PATIENT COMMENT** MISC XX SCH (21:14)
[2020-02-01] MEDS: SENNA 8.6 MG TAB (SENOKOT) PO SCH (21:14)
[2020-02-02] MEDS: cefTRIAXone SOD 2 GM in D5W MINI-BAG PLUS 50 ML IV SCH ×2 (04:31→15:14)
[2020-02-02] MEDS: LIDOCAINE 5% (LIDODERM) PATCH TD SCH (05:09)
[2020-02-02] MEDS: LEVOTHYROXINE 100MCG TABLET (0.1MG) PO SCH (05:10)
[2020-02-02] MEDS: SODIUM CHLORIDE 0.9% INJ 10 ML SYR IV SCH ×2 (05:10→16:57)
[2020-02-02] MEDS: ACETAMINOPHEN 650MG ER TAB (TYLENOL ARTHRITIS) PO SCH ×3 (05:11→21:22)
[2020-02-02] MEDS: PRAMIPEXOLE 0.25 MG TAB PO SCH ×2 (05:11→21:23)
[2020-02-02 06:02] VITALS: BP 163/74
[2020-02-02 07:10] LABS: BASO # 0.1 10^3/uL (0.0-0.2); BASO % 1.6 % (0.0-1.0); EOS # 0.1 10^3/uL (0.0-0.5); EOS % 1.7 % (0.0-3.0); HEMATOCRIT 33.3 % (42.0-52.0); HEMOGLOBIN 10.4 g/dl (13.5-17.5); LYMPH # 1.7 10^3/uL (1.5-5.0); LYMPH % 20.4 % (24.0-44.0); MEAN CORPUSCULAR HEMOGLOBIN 23.2 pg (27.0-33.0); MEAN CORPUSCULAR HGB CONC 31.2 g/dl (32.0-36.5); MEAN CORPUSCULAR VOLUME 74.2 fl (80.0-96.0); MONO % 11.5 % (0.0-5.0); NEUTROPHILS # 5.3 10^3/uL (1.5-8.5); NEUTROPHILS % 64.4 % (36.0-66.0); PLATELET COUNT, AUTOMATED 718 10^3/uL (150-450); RED BLOOD COUNT 4.49 10^6/uL (4.30-6.10); WHITE BLOOD COUNT 8.3 10^3/uL (4.0-10.0)
[2020-02-02 07:23] LABS: ALBUMIN 2.5 GM/DL (3.2-5.2); ALT/SGPT 100 U/L (12-78); BILIRUBIN,TOTAL 0.2 MG/DL (0.2-1.0); BLOOD UREA NITROGEN 21 MG/DL (7-18); CALCIUM LEVEL 8.4 MG/DL (8.8-10.2); CARBON DIOXIDE LEVEL 27 MEQ/L (21-32); CHLORIDE LEVEL 106 MEQ/L (98-107); GLOMERULAR FILTRATION RATE > 60.0 (>42); GLUCOSE, FASTING 83 MG/DL (70-100); POTASSIUM SERUM 3.9 MEQ/L (3.5-5.1); SODIUM LEVEL 139 MEQ/L (136-145); TOTAL PROTEIN 6.9 GM/DL (6.4-8.2)
[2020-02-02] MEDS: HumaLOG INSULIN (NovoLOG) PER UNIT SC SCH ×3 (07:30→16:57)
[2020-02-02] MEDS: MIRALAX *UNIT DOSE* 17GM PACKET PO SCH (08:08)
[2020-02-02] MEDS: APIXABAN 5 MG TAB (ELIQUIS) PO SCH ×2 (08:15→21:23)
[2020-02-02] MEDS: MULTIVITAMINS/MINERALS THERAP 1 TAB PO SCH (08:15)
[2020-02-02] MEDS: TAMSULOSIN 0.4 MG CAP PO SCH (08:15)
[2020-02-02] MEDS: FOLIC ACID 1 MG TAB PO SCH (08:15)
[2020-02-02] MEDS: SERTRALINE 100 MG TAB PO SCH (08:15)
[2020-02-02] MEDS: HYDROCORTISONE 10 MG TAB PO SCH ×2 (08:15→11:47)
[2020-02-02] MEDS: FUROSEMIDE 20 MG TAB PO SCH (08:15)
[2020-02-02] MEDS: DOCUSATE SODIUM 100 MG CAP PO SCH ×2 (08:16→21:23)
[2020-02-02] MEDS: oxyCODONE 5MG TAB PO SCH (08:16)
[2020-02-02] MEDS: BACLOFEN 10 MG TAB PO SCH ×2 (08:16→21:23)
[2020-02-02] MEDS: THIAMINE 100 MG TAB PO SCH (08:16)
[2020-02-02] MEDS: amLODIPine 5 MG TAB PO SCH (08:16)
[2020-02-02] MEDS: PANTOPRAZOLE 40MG TAB (PROTONIX) PO SCH (08:16)
[2020-02-02] MEDS: VITAMIN D 1,000 INTERNATIONAL UNITS TABLET PO SCH (08:17)
[2020-02-02] MEDS: LOSARTAN 50MG TABLET PO SCH (08:17)
[2020-02-02] MEDS: NYSTATIN 100,000 UNITS/GM TOPICAL PWD 15 GM TOP SCH (08:18)
[2020-02-02] MEDS: NYSTATIN CREAM 15 GM TOP SCH (08:18)
[2020-02-02] MEDS: ADVAIR HFA 230/21MCG INHALER INH SCH ×2 (09:27→20:08)
[2020-02-02] MEDS: TESTIM TOP SCH (09:48)
--- NOTE | 2020-02-02 10:00 | IPNPDOC ---
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 He was seen in [facility] January 11. [place] to have infection secondary to group B strep, discharged home with with P.O. Keflex. He worsened and had severe AMS and was then seen at [facility] for severe back pain, delerium with white blood count of 14K, CT abdomen and pelvis showed signs concerning for discitis and he was transferred January 16 to [facility] for higher level of care. Ruled out for [place] with negative troponins, incidental finding of 1.4 x 0.9 cm hypoechoic structure left kidney noted on ultrasound. Workup included MRI 01/17 revealed a T11-T12 discitis with prevertebral phlegmon versus abscess, lumbar biopsy performed. Additionally noted was severe degenerative disc disease T12-L4, L5, S1 with abnormal vertebral marrow signal T11-12, likely due to bone edema and infection, clumping of the cauda equina nerve roots and severe narrowing of the central canal due to disc bulge and posterior osteophytes, CT angiogram chest and chest x-ray noted for diffuse nonspecific prominence of pulmonary insufficiency. 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 ID recommended IV ceftriaxone for 14 days then Min dose reduction on January 31 for an additional 4 weeks, working with pharmacy to clarify. Picc line placed for maintaining IV Access. Patient admitted to acute rehabilitation for pain management, strengthening, endurance cognitive and safety issues while also managing complex medical issues. Pain management improving as is exercise tolerance, however still gets severe mm spasms right upper trapezius/levator scap region, worse at end of day. The earlier hypersomnolence and confusion lifting as medications getting better sorted out. Sleeping fairly well, moving bowels regularly. REVIEW OF SYSTEMS: The following is a completed review of systems and has been reviewed. Review of systems otherwise unremarkable. PAIN: mostly mid thoracic/right shoulder girdle now, minimal pain in Low back and lower extremities. EYES: double vision, uses prism glasses since brain surgery EARS, NOSE, & THROAT: No throat pain, or dysphagia, or rhinorrhea. CARDIOVASCULAR: Denies chest pain or palpitations. PULMONARY: Denies shortness of breath. GASTROINTESTINAL: no complaints GENITOURINARY: .no complaints MUSCULOSKELETAL: . markedly improving low back pain NEUROLOGICAL:. Status post recent episode of encephalopathy related to sepsis, clearing HEMATOLOGICAL: Anemic, fatigued SKIN: .Had Tick bite on presentation, no target lesions, does have irritating interiginous rash, episodic sweating, better today PSYCHIATRIC: Increasing anxiety, episodes of confusion noted All other review of systems found to be negative. REVIEW OF SYSTEMS: ALLERGIES: See Below MEDICATIONS: Reviewed, see below. OBJECTIVE: VITAL SIGNS: Please see below. SBP 163 in am, during periods of distress, 120 in PM GENERAL: Pleasant, calm and communicative, notes 330pm now hard time of day after giving best effort during day in various therapies. HEENT: Extraocular movements intact .No adenopathy or thyromegaly. Full cervical range of motion Tenderness with trigger points right upper cervicothoracic region, levator scapula. CARDIOVASCULAR: S1 S2 regular LUNGS: Clear to auscultation bilaterally. No wheezes. No rhonchi. ABDOMEN: Soft, nontender, nondistended. Positive normal active bowel sounds. NEUROLOGICAL: Cranial nerves II through XII grossly intact. Sensation intact all 4 extremities. EXTREMITIES: 5/5 cashier, elbow flexion, elbow extension, knee extension, foot dorsiflexion, plantar flexion. SKIN: .Picc left inner arm. Skin over back warm, dry. FUNCTIONAL STATUS: Continued to work on ambulation and strengthening this session; continuing to n ote improved gait, speed and overall safety. Pt perf transfer into shower with SBA using RW with cues to avoid bringing RW directly into the shower as pt has a threshold to step over at home. Pt completed all bathing tasks sitting on chair/standing at grab bar with s/u using long handled sponge to wash LEs. Pt donned/doffed shirt, pants, underwear and socks with s/u. Pt mod I with toileting tasks and grooming seated at sink. SBA provided for toilet transfer and ambulation within room with RW. Fatigues easily, pain fluctuates, increased right upper trapezius after various therapy activities. LABORATORY DATA: Reviewed. Please see below. WBC better 8.3, slight drop H/H 10.4/33.3, sodium normalized at 139 MICROBIOLOGY: Lymes negative ASSESSMENT AND PLAN: DIAGNOSES: Low back pain with left-sided lower extremity pain OA spine with multilevel DDD and Lumbar Stenosis Discitis s/p Sepsis Spinal Osteomyelitis Polyradiculoneuropathy with Cauda Equina syndrome Encephalopathy. Group B strep bacteremia. Atrial fibrillation. Essential hypertension History of hematuria secondary to traumatic Ann placement. HLD. CAD s/p 2 prior stents Anemia. Diabetes last hemoglobin A1c 7.3 12/30/2019 Endocrine dysfunction s/p resection pituitary adenoma Hypothyroidism. Hyponatremia. Sleep apnea Status posts hypoxemic respiratory failure. Tick bite Probable candidiasis ASSESSMENT:74 year-old right handed gentleman with past medical history of cortisone dependent endocrine deficiencies s/p remote resection of pituitary adenoma hat developed severe backpain with left lower extremity pain and generalized sepsis, failed conservative oral antibiotics for group B Strep as an outpatient prescribed after presentation at [facility] Jan 11, returned to [facility] and was referred to [facility] on for deterioration with encephalopathy, leukocytosis and eventual CT Guided lumbar biopsy 01/18 confirmed T11-T12 discitis, reportedly cultures no growth (was on antibiotics) however imaging did demonstrate Phlegmon vs abscess. Here for comprehensive rehabilitation, pain management and completion of IV antibiotics, monitoring closely for S/Sx of neurological deterioration. Has had a elo entry while we work to stay ahead of the pain instead of chasing the pain, without oversedation or other adverse side effects. Spreading out meds seems to be working well. Continue adjustments until under control, adding PM Icing and trial TENS, then once consistently tolerating higher levels of activity without significant set back, proceed with weaning down doses to long range tolerable targets. Lymes titre negative, may need to repeat, ESR, other panels if odd shooting pains/fatigue worsen. Continue to have low threshold to re image for if sweats, fevers, AMS recur/worsen. PLAN: 1. Rehab- PT/OT advance gait and ADls, strengthen/stretch/maintain ROM all 4 limbs. We'll continue to work on timing pain medication with therapy interventions to optimize possible capacity to participate. 2. Neuro- clearing encephalopathy, polyradiculopathy, hx LEYLA-will need CPAP replaced/new sleep study. 3. Ortho- T11-12 Discitis/osteomyelitis with probable cauda equina syndrome, DDD, Lumbar stenosis/listhesis s/p prior spine stabilization, continue IV Ceftriaxone begun 01/17 for 2 weeks at current dose now previous notations mentioned that he is to be starting at an additional 4 weeks at reduced dose, requested pharmacy assistance to clarify. Low threshold for re imaging if pain continues to be resistant or worsens or fever, worsening leukocytosis noted along with recurrent sweats and severe pain fluctuations. Pain management with modalities, has reported history of Afib s/p ablation, not on a pacemaker currently, low margin or risk vs potential benefit of short term trial TENS as another approach to help manage pain if medications continue to prove insufficient. Baclofen for mm spasm seems to have less adverse cognitive side effect, will add icing for PM spasms and reviewed isometric contract release exercises. 4. Cardiac- hx of CAD with Stents, afib, currently stable - Anemia-monitor, supplement as indicated -HTN -amlodipine -HLD- c/u statins 5. Resp -s/p hypoxia/respiratory failure during sepsis, now clear and stable on room air, continue incentive spirometry, monitor for infection 6. Endo- hx of post resection of pituitary adenoma with DM, hypothyroid, adrenal insufficiency, c/u insulin and ISS, thyroid replacement, steroids, family brought in Testosterone supplementation now being administered on unit. FBS well controlled 83. 7. - episodic hematuria, incidental finding of renal ?cysts, monitor UA and output, PVR, bladder training if indicated. 8. GI ppx- s/p constipation, possible mild neurogenic bowel component, continue laxatives, add suppository/SCI bowel program. Continued electrolyte imbalance, monitor and supplement as indicated. On steroids, at risk GI irritation. Na improved. 9. Skin-nystatin creme then powder, air out skin areas 10.Tick bite, hopeful coverage with abx rx, observe for odd CV or Neurological manifestations, negative for Lymes screen. DISPOSITION Home with . TIME SPENT: Chart Review, examination and documentation 35 minutes. Allergies Coded Allergies: codeine (Verified Allergy, Intermediate, Rash, 01/17/20) gabapentin (Verified Adverse Reaction, Intermediate, JITTERY, 01/17/20) Vital Signs Vital Signs Date Time Temp Pulse Resp B/P (MAP) Pulse Ox O2 Delivery O2 Flow Rate FiO2 02/02/20 08:46 16 02/02/20 08:17 163/74 02/02/20 08:16 56 11/16/20 06:02 97.6 92 Room Air Laboratory Data CBC/BMP Laboratory Tests 02/02/20 06:39 Labs 24H Laboratory Tests 2 02/01/20 11:12: Bedside Glucose (Misc Panel) 195H 02/01/20 16:05: Bedside Glucose (Misc Panel) 219H 02/01/20 19:51: Bedside Glucose (Misc Panel) 161H 02/02/20 05:43: Bedside Glucose (Misc Panel) 89 02/02/20 06:39: Immature Granulocyte % (Auto) 0.4, Neutrophils (%) (Auto) 64.4, Lymphocytes (%) (Auto) 20.4L, Monocytes (%) (Auto) 11.5H, Eosinophils (%) (Auto) 1.7, Basophils (%) (Auto) 1.6H, Neutrophils # (Auto) 5.3, Lymphocytes # (Auto) 1.7, Monocytes # (Auto) 1.0H, Eosinophils # (Auto) 0.1, Basophils # (Auto) 0.1, Nucleated Red Blood Cells % (auto) 0.0, Anion Gap 6L, Glomerular Filtration Rate > 60.0, Calcium Level 8.4L, Total Bilirubin 0.2, Aspartate Amino Transf (AST/SGOT) 83H, Alanine Aminotransferase (ALT/SGPT) 100H, Alkaline Phosphatase 137H, Total Protein 6.9, Albumin 2.5L, Albumin/Globulin Ratio 0.6 Current Medications Current Medications Current Medications Medications (Trade) Dose Ordered Sig/Bishnu Route PRN Reason Start Time Stop Time Status Last Admin Dose Admin Acetaminophen (Tylenol Arthritis Er) 1,300 mg Q8H PO 01/28/20 06:00 02/02/20 05:11 Albuterol Sulfate (Proventil, Ventolin Hfa) 2 puff Q4H PRN INH SOB/WHEEZING 01/26/20 17:00 Amlodipine Besylate (Norvasc) 5 mg DAILY PO 01/27/20 09:00 02/02/20 08:16 Apixaban (Eliquis) 5 mg BID PO 01/26/20 21:00 02/02/20 08:15 Baclofen (Lioresal) 10 mg BID PO 01/27/20 09:00 01/28/20 08:25 DC 01/28/20 08:14 Baclofen (Lioresal) 10 mg BID PO 01/29/20 09:00 02/02/20 08:16 Baclofen (Lioresal) 20 mg BID PO 01/28/20 21:00 01/29/20 07:05 DC 01/28/20 20:07 Bisacodyl (Dulcolax Suppository) 10 mg 3XWP PRN SD CONSTIPATION 01/30/20 09:00 Bisacodyl (Dulcolax Suppository) 10 mg DAILY PRN SD CONSTIPATION 01/27/20 09:00 01/30/20 09:08 DC Ceftriaxone Sodium 2 gm/ Dextrose 50 ml @ 100 mls/hr Q12H IV 01/26/20 16:00 02/02/20 04:31 Ceftriaxone Sodium 2 gm/ Dextrose 50 ml @ 100 mls/hr Q12H IV 01/26/20 17:00 01/26/20 16:33 DC Dextrose (Dextrose 50%) 25 ml ASDIRECTED PRN IV SEE LABEL COMMENTS 01/26/20 16:45 Docusate Sodium (Colace) 100 mg BID PO 01/26/20 21:00 02/02/20 08:16 EZETIMIBE (Zetia) 10 mg QHS PO 01/26/20 21:00 02/01/20 21:13 Folic Acid (Folic Acid) 1 mg DAILY PO 01/27/20 09:00 02/02/20 08:15 Furosemide (Lasix) 20 mg DAILY PO 01/27/20 09:00 02/02/20 08:15 Glucagon (Glucagon) 1 mg ASDIRECTED PRN SC SEE LABEL COMMENTS 01/26/20 16:45 Glucose (Glucose) 16 GM ASDIRECTED PRN PO SEE LABEL COMMENTS 01/26/20 16:45 Heparin Sodium (Heparin (Flush)) 200 units ASDIRECTED PRN IV SEE LABEL COMMENTS 01/26/20 17:45 01/31/20 16:28 Heparin Sodium (Heparin (Flush)) 200 units PICC IV 01/26/20 18:00 02/02/20 05:10 Home Med (Med Rec Complete!) ASDIRECTED XX 01/26/20 15:45 01/26/20 15:33 DC Hydrocortisone (Cortef) 10 mg DAILY@1200 PO 01/27/20 12:00 02/01/20 12:42 Hydrocortisone (Cortef) 15 mg QAM PO 01/27/20 09:00 02/02/20 08:15 Insulin Human Lispro (HumaLOG INSULIN) See Protocol Table AC SC 01/26/20 17:30 02/01/20 16:57 Levothyroxine Sodium (Synthroid) 200 mcg DAILY@0600 PO 01/27/20 06:00 02/02/20 05:10 Lidocaine (Lidoderm Patch) 1 patch DAILY TOP 01/27/20 09:00 01/28/20 08:39 DC 01/28/20 08:15 Lidocaine (Lidoderm Patch) 2 patch DAILY TD 01/28/20 09:00 01/29/20 08:00 DC 01/29/20 06:11 Lidocaine (Lidoderm Patch) 2 patch DAILY@0500 TD 01/30/20 05:00 02/02/20 05:09 Lorazepam (Ativan) 0.5 mg Q8HP PRN PO ANXIETY 01/28/20 08:30 02/02/20 06:00 DC Losartan Potassium (Cozaar) 100 mg DAILY PO 01/27/20 09:00 02/02/20 08:17 Miscellaneous (Unresolved Patient Own Med Order) SEE LABEL COMMENTS DAILY XX 01/30/20 09:00 01/31/20 14:13 DC Multivitamins (Theragram-M) 1 tab DAILY PO 01/27/20 09:00 02/02/20 08:15 Nitroglycerin (Nitrostat (1/ 150)) 0.4 mg ASDIRECTED PRN SL CHEST PAIN 01/26/20 16:00 Non-Formulary Medication ( See Comment Field Below ) REMOVE LIDODERM PATCH DAILY@21 XX 01/28/20 21:00 02/01/20 21:14 Non-Formulary Medication ( See Comment Field Below ) REMOVE LIDODERM PATCH DAILY@21 XX 01/26/20 21:00 01/28/20 08:39 DC 01/27/20 20:11 Nystatin (Mycostatin Powder, Nystop) may sprinkle over ba... DAILY TOP 01/28/20 09:00 02/02/20 08:18 Nystatin (Mycostatin) apply to groin and perin... DAILY TOP 01/26/20 18:00 02/02/20 08:18 Oxycodone HCl (OxyCONTIN) 5 mg BID PRN PO PAIN LEVEL 7-10 01/29/20 07:00 01/29/20 07:57 DC Oxycodone HCl (OxyCONTIN) 10 mg BID PO 01/28/20 21:00 01/29/20 07:05 DC 01/28/20 20:07 Oxycodone HCl (Roxicodone, Oxyir) 5 mg DAILY@0800 PO 01/29/20 08:00 02/02/20 08:16 Oxycodone HCl (Roxicodone, Oxyir) 5 mg Q6H PRN PO MILD/MODERATE PAIN (PS 1-7) 01/28/20 08:00 01/28/20 08:31 DC Oxycodone HCl (Roxicodone, Oxyir) 5 mg Q6H PRN PO BREAKTHROUGH PAIN 01/28/20 08:30 01/29/20 07:05 DC Oxycodone HCl (Roxicodone, Oxyir) 5 mg Q6HP PRN PO PAIN LEVEL 4-7 01/29/20 07:00 02/02/20 00:00 Oxycodone HCl (Roxicodone, Oxyir) 10 mg Q4H PRN PO SEVERE PAIN (PS 8-10) 01/27/20 09:15 01/28/20 08:48 DC 01/28/20 07:01 Pantoprazole Sodium (Protonix) 40 mg DAILY PO 01/27/20 09:00 02/02/20 08:16 Patient Own Medication (Patient'S Own Med) testosterone 2.5 g pack... DAILY TOP 01/31/20 09:00 01/31/20 14:06 DC Patient Own Medication (Pt Own Med *Controlled Subst*) Hazardous agent (NIOSH 2,016 [gr... DAILY TOP 02/01/20 09:00 02/02/20 09:48 Polyethylene Glycol (Miralax) 1 pkt DAILY PO 01/27/20 09:00 01/30/20 08:14 Pramipexole Dihydrochloride (Mirapex) 0.5 mg BID PO 01/26/20 21:00 01/28/20 08:47 DC 01/28/20 08:14 Pramipexole Dihydrochloride (Mirapex) 0.5 mg BID@0600,2100 PO 01/28/20 21:00 02/02/20 05:11 Rosuvastatin Calcium (Crestor) 40 mg QHS PO 01/26/20 21:00 02/01/20 21:14 Salmeterol Xinafoate/ Fluticasone (Advair Hfa 230/ 21) 2 puff RBID INH 01/26/20 20:00 02/02/20 09:27 Senna (Senokot) 1 tab QHS PO 01/26/20 21:00 02/01/20 21:14 Sertraline HCl (Zoloft) 150 mg DAILY PO 01/27/20 09:00 02/02/20 08:15 Sodium Chloride (Saline Lock Flush) 10 ml ASDIRECTED PRN IV SEE LABEL COMMENTS 01/26/20 17:45 01/31/20 16:29 Sodium Chloride (Saline Lock Flush) 10 ml PICC IV 01/26/20 18:00 02/02/20 05:10 Tamsulosin HCl (Flomax) 0.4 mg DAILY PO 01/27/20 09:00 02/02/20 08:15 Thiamine HCl (Thiamine HCl) 100 mg DAILY PO 01/27/20 09:00 02/02/20 08:16 Tizanidine HCl (Zanaflex) 2 mg Q8HP PRN PO BACK PAIN 01/26/20 17:15 01/27/20 07:04 DC 01/27/20 00:45 Tizanidine HCl (Zanaflex) 2 mg Q8HP PRN PO BACK PAIN 01/26/20 17:15 01/26/20 17:27 DC Tramadol HCl (Ultram) 50 mg Q6H PRN PO PAIN 01/26/20 18:00 01/27/20 07:01 DC 01/27/20 05:14 Tramadol HCl (Ultram) 75 mg Q6H PRN PO PAIN 01/27/20 12:00 01/28/20 08:36 DC 01/28/20 06:26 Vitamin D (Vitamin D) 5,000 units DAILY PO 01/27/20 09:00 02/02/20 08:17 FATMATA DHALIWAL MD Feb 02, 2020 10:00
[2020-02-02 14:00] VITALS: BP 120/59
[2020-02-02] MEDS: SODIUM CHLORIDE 0.9% INJ 10 ML SYR IV PRN (15:15)
[2020-02-02 20:00] VITALS: BP 128/70
[2020-02-02] MEDS: **NOTE PATIENT COMMENT** MISC XX SCH (21:00)
[2020-02-02] MEDS: SENNA 8.6 MG TAB (SENOKOT) PO SCH (21:22)
[2020-02-02] MEDS: EZETIMIBE 10 MG TAB (ZETIA) PO SCH (21:23)
[2020-02-02] MEDS: ROSUVASTATIN 10 MG TAB (CRESTOR) PO SCH (21:23)
[2020-02-02] MEDS: oxyCODONE 5MG TAB PO PRN ×2 (21:30)
[2020-02-03] MEDS: cefTRIAXone SOD 2 GM in D5W MINI-BAG PLUS 50 ML IV SCH ×2 (04:47→20:35)
[2020-02-03] MEDS: LIDOCAINE 5% (LIDODERM) PATCH TD SCH (05:00)
[2020-02-03] MEDS: LEVOTHYROXINE 100MCG TABLET (0.1MG) PO SCH (05:42)
[2020-02-03] MEDS: PRAMIPEXOLE 0.25 MG TAB PO SCH ×2 (05:42→20:35)
[2020-02-03] MEDS: ACETAMINOPHEN 650MG ER TAB (TYLENOL ARTHRITIS) PO SCH ×3 (05:42→20:35)
[2020-02-03] MEDS: SODIUM CHLORIDE 0.9% INJ 10 ML SYR IV SCH ×2 (05:42→17:10)
[2020-02-03 05:53] VITALS: BP 185/87
[2020-02-03 06:22] VITALS: BP 160/88
[2020-02-03] MEDS: ADVAIR HFA 230/21MCG INHALER INH SCH ×2 (07:16→19:39)
[2020-02-03] MEDS: HumaLOG INSULIN (NovoLOG) PER UNIT SC SCH ×3 (07:30→17:09)
[2020-02-03] MEDS: HYDROCORTISONE 10 MG TAB PO SCH ×2 (07:49→12:03)
[2020-02-03] MEDS: MULTIVITAMINS/MINERALS THERAP 1 TAB PO SCH (07:50)
[2020-02-03] MEDS: DOCUSATE SODIUM 100 MG CAP PO SCH ×2 (07:51→20:34)
[2020-02-03] MEDS: oxyCODONE 5MG TAB PO SCH (07:51)
[2020-02-03] MEDS: BACLOFEN 10 MG TAB PO SCH ×2 (07:51→20:35)
[2020-02-03] MEDS: amLODIPine 5 MG TAB PO SCH (07:51)
[2020-02-03] MEDS: THIAMINE 100 MG TAB PO SCH (07:52)
[2020-02-03] MEDS: FOLIC ACID 1 MG TAB PO SCH (07:52)
[2020-02-03] MEDS: VITAMIN D 1,000 INTERNATIONAL UNITS TABLET PO SCH (07:52)
[2020-02-03] MEDS: SERTRALINE 100 MG TAB PO SCH (07:52)
[2020-02-03] MEDS: LOSARTAN 50MG TABLET PO SCH (07:53)
[2020-02-03] MEDS: PANTOPRAZOLE 40MG TAB (PROTONIX) PO SCH (07:54)
[2020-02-03] MEDS: APIXABAN 5 MG TAB (ELIQUIS) PO SCH ×2 (07:54→20:34)
[2020-02-03] MEDS: NYSTATIN CREAM 15 GM TOP SCH (07:55)
[2020-02-03] MEDS: MIRALAX *UNIT DOSE* 17GM PACKET PO SCH (07:56)
[2020-02-03] MEDS: NYSTATIN 100,000 UNITS/GM TOPICAL PWD 15 GM TOP SCH (07:56)
[2020-02-03] MEDS: FUROSEMIDE 20 MG TAB PO SCH (07:57)
[2020-02-03] MEDS: TAMSULOSIN 0.4 MG CAP PO SCH (08:10)
[2020-02-03] MEDS: TESTIM TOP SCH (08:12)
[2020-02-03 14:00] VITALS: BP 128/67
--- NOTE | 2020-02-03 14:29 | IPNPDOC ---
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 He was seen in [facility] January 11. [place] to have infection secondary to group B strep, discharged home with with P.O. Keflex. He worsened and had severe AMS and was then seen at [facility] for severe back pain, delerium with w sp blood count of 14K, CT abdomen and pelvis showed signs concerning for discitis and he was transferred January 16 to [facility] for higher level of care. Ruled out for WI with negative troponins, incidental finding of 1.4 x 0.9 cm hypoechoic structure left kidney noted on ultrasound. Workup included MRI 01/17 revealed a T11-T12 discitis with prevertebral phlegmon versus abscess, lumbar biopsy performed. Additionally noted was severe degenerative disc disease T12-L4, L5, S1 with abnormal vertebral marrow signal T11-12, likely due to bone edema and infection, clumping of the cauda equina nerve roots and severe narrowing of the central canal due to disc bulge and posterior osteophytes, CT angiogram chest and chest x-ray noted for diffuse nonspecific prominence of pulmonary insufficiency. 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 ID recommended IV ceftriaxone for 14 days then Min dose reduction on January 31 for an additional 4 weeks. Picc line placed for maintaining IV Access. Discussed case with Mart Felix from [facility] who confirmed shift to 2G Q 24hr for 4 weeks which would go through 03/01. Patient admitted to acute rehabilitation for pain management, strengthening, endurance cognitive and safety issues while also managing complex medical issues. Pain management improving as is exercise tolerance, fewer episodic mm spasms right upper trapezius/levator scap region, icing helps prevent escalation at end of day. The earlier hypersomnolence and confusion lifting as medications getting better sorted out. Sleeping well, moving bowels regularly, no bladder issues. Pain much better controlled when current med regimen followed. Will begin further wean as tolerated. REVIEW OF SYSTEMS: The following is a completed review of systems and has been reviewed. Review of systems otherwise unremarkable. PAIN: mostly mid thoracic/right shoulder girdle now, minimal pain in Low back and lower extremities. EYES: double vision, uses prism glasses since brain surgery EARS, NOSE, & THROAT: No throat pain, or dysphagia, or rhinorrhea. CARDIOVASCULAR: Denies chest pain or palpitations. PULMONARY: Denies shortness of breath. GASTROINTESTINAL: no complaints GENITOURINARY: .no complaints MUSCULOSKELETAL: . markedly improving low back pain NEUROLOGICAL:. Status post recent episode of encephalopathy related to sepsis, clearing HEMATOLOGICAL: Anemic, fatigued SKIN: .Had Tick bite on presentation, no target lesions, does have irritating interiginous rash, episodic sweating, better today PSYCHIATRIC: Increasing anxiety, episodes of confusion noted All other review of systems found to be negative. REVIEW OF SYSTEMS: ALLERGIES: See Below MEDICATIONS: Reviewed, see below. OBJECTIVE: VITAL SIGNS: Please see below. SBP 163 in am, during periods of distress, 120 in PM GENERAL: Pleasant, calm and communicative HEENT: Extraocular movements intact .No adenopathy or thyromegaly. Full cervical range of motion Tenderness with trigger points right upper cervicothoracic region, levator scapula. CARDIOVASCULAR: S1 S2 regular LUNGS: Clear to auscultation bilaterally. No wheezes. No rhonchi. ABDOMEN: Soft, nontender, nondistended. Positive normal active bowel sounds. NEUROLOGICAL: Cranial nerves II through XII grossly intact. Sensation intact all 4 extremities. 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 SKIN: .Picc left inner arm. Skin over back warm, dry. FUNCTIONAL STATUS: Case discussed in team conference. Continued to work on ambulation and strengthening this session; continuing to note improved gait, speed and overall safety. SBA for sit to stand, transfers, ambulating 150 ft. Trial TENS helped reduce trapezius pain and improve functional use of upper extremities. Pulse Ox/HR measurements no variability or symptoms. Fatigues easily, pain fluctuates, increased right upper trapezius after various therapy activities. Next goals to work on 3 stairs safely, increase distance ambulation. LABORATORY DATA: Reviewed. Please see below. WBC better 8.3, slight drop H/H 10.4/33.3, sodium normalized at 139 MICROBIOLOGY: Lymes negative ASSESSMENT AND PLAN: DIAGNOSES: Low back pain with left-sided lower extremity pain OA spine with multilevel DDD and Lumbar Stenosis Discitis s/p Sepsis Spinal Osteomyelitis Polyradiculoneuropathy with Cauda Equina syndrome Encephalopathy. Group B strep bacteremia. Atrial fibrillation. Essential hypertension History of hematuria secondary to traumatic Ann placement. HLD. CAD s/p 2 prior stents Anemia. Diabetes last hemoglobin A1c 7.3 12/30/2019 Endocrine dysfunction s/p resection pituitary adenoma Hypothyroidism. Hyponatremia. Sleep apnea Status posts hypoxemic respiratory failure. Tick bite Probable candidiasis ASSESSMENT:74 year-old right handed gentleman with past medical history of cortisone dependent endocrine deficiencies s/p remote resection of pituitary adenoma hat developed severe backpain with left lower extremity pain and g eneralized sepsis, failed conservative oral antibiotics for group B Strep as an outpatient prescribed after presentation at [facility] Jan 11, returned to [facility] and was referred to [facility] on for deterioration with encephalopathy, leukocytosis and eventual CT Guided lumbar biopsy 01/18 confirmed T11-T12 discitis, reportedly cultures no growth (was on antibiotics) however imaging did demonstrate Phlegmon vs abscess. Here for comprehensive rehabilitation, pain management and completion of IV antibiotics, monitoring closely for S/Sx of neurological deterioration. Has had a elo entry while we work to stay ahead of the pain instead of chasing the pain, without oversedation or other adverse side effects. Spreading out meds seems to be working well. Continue adjustments until under control, adding PM Icing and trial TENS, then once consistently tolerating higher levels of activity without significant set back, proceed with weaning down doses to long range tolerable targets. Lymes titre negative, may need to repeat, ESR, other panels if odd shooting pains/fatigue worsen. Continue to have low threshold to re image for if sweats, fevers, AMS recur/worsen. PLAN: 1. Rehab- PT/OT advance gait and ADls, strengthen/stretch/maintain ROM all 4 limbs. We'll continue to work on timing pain medication with therapy interventions to optimize possible capacity to participate. 2. Neuro- clearing encephalopathy, polyradiculopathy, hx LEYLA-will need CPAP replaced/new sleep study. 3. Ortho- T11-12 Discitis/osteomyelitis with probable cauda equina syndrome, DDD, Lumbar stenosis/listhesis s/p prior spine stabilization, continue IV Ceftriaxone begun 01/17 for 2 weeks confirmed with [facility] that he is to be starting at an additional 4 weeks at reduced dose 2G/Q24hr through 12.14. Low threshold for re imaging if pain continues to be resistant or worsens or fever, worsening. Has reported history of Afib s/p ablation, not on a pacemaker currently, low margin or risk vs potential benefit of short term use of TENS as another approach to help manage pain and amplify effect of medications contributing to improved functional gains. Baclofen for mm spasm seems to have less adverse cognitive side effect, icing for PM spasms and reviewed isometric contract release exercises all contributing to continued progress. 4. Cardiac- hx of CAD with Stents, afib, currently stable - Anemia-monitor, supplement as indicated -HTN -amlodipine -HLD- c/u statins 5. Resp -s/p hypoxia/respiratory failure during sepsis, now clear and stable on room air, continue incentive spirometry, monitor for infection 6. Endo- hx of post resection of pituitary adenoma with DM, hypothyroid, adrenal insufficiency, c/u insulin and ISS, thyroid replacement, steroids, family brought in Testosterone supplementation now being administered on unit. FBS well controlled 83. 7. - episodic hematuria, incidental finding of renal ?cysts, monitor UA and output, PVR, bladder training if indicated. 8. GI ppx- s/p constipation, possible mild neurogenic bowel component, continue laxatives, add suppository/SCI bowel program. Continued electrolyte imbalance, monitor and supplement as indicated. On steroids, at risk GI irritation. Na improved. 9. Skin-nystatin creme then powder, air out skin areas 10.Tick bite, hopeful coverage with abx rx, observe for odd CV or Neurological manifestations, negative for Lymes screen. DISPOSITION Home with . TIME SPENT: Chart Review, examination and documentation 35 minutes. Allergies Coded Allergies: codeine (Verified Allergy, Intermediate, Rash, 01/17/20) gabapentin (Verified Adverse Reaction, Intermediate, JITTERY, 01/17/20) Vital Signs Vital Signs Date Time Temp Pulse Resp B/P (MAP) Pulse Ox O2 Delivery O2 Flow Rate FiO2 02/03/20 08:22 18 Room Air 02/03/20 07:51 60 152/80 02/03/20 05:53 98.6 97 Laboratory Data Labs 24H Laboratory Tests 2 02/02/20 16:41: Bedside Glucose (Misc Panel) 214H 02/02/20 19:48: Bedside Glucose (Misc Panel) 190H 02/03/20 05:23: Bedside Glucose (Misc Panel) 92 02/03/20 11:28: Bedside Glucose (Misc Panel) 142H Current Medications Current Medications Current Medications Medications (Trade) Dose Ordered Sig/Bishnu Route PRN Reason Start Time Stop Time Status Last Admin Dose Admin Acetaminophen (Tylenol Arthritis Er) 1,300 mg Q8H PO 01/28/20 06:00 02/03/20 14:06 Albuterol Sulfate (Proventil, Ventolin Hfa) 2 puff Q4H PRN INH SOB/WHEEZING 01/26/20 17:00 Amlodipine Besylate (Norvasc) 5 mg DAILY PO 01/27/20 09:00 02/03/20 07:51 Apixaban (Eliquis) 5 mg BID PO 01/26/20 21:00 02/03/20 07:54 Baclofen (Lioresal) 10 mg BID PO 01/27/20 09:00 01/28/20 08:25 DC 01/28/20 08:14 Baclofen (Lioresal) 10 mg BID PO 01/29/20 09:00 02/03/20 07:51 Baclofen (Lioresal) 20 mg BID PO 01/28/20 21:00 01/29/20 07:05 DC 01/28/20 20:07 Bisacodyl (Dulcolax Suppository) 10 mg 3XWP PRN ID CONSTIPATION 01/30/20 09:00 Bisacodyl (Dulcolax Suppository) 10 mg DAILY PRN ID CONSTIPATION 01/27/20 09:00 01/30/20 09:08 DC Ceftriaxone Sodium 2 gm/ Dextrose 50 ml @ 100 mls/hr Q12H IV 01/26/20 16:00 02/03/20 14:18 DC 02/03/20 04:47 Ceftriaxone Sodium 2 gm/ Dextrose 50 ml @ 100 mls/hr Q12H IV 01/26/20 17:00 01/26/20 16:33 DC Ceftriaxone Sodium 2 gm/ Dextrose 50 ml @ 100 mls/hr QHS IV 02/03/20 21:00 Dextrose (Dextrose 50%) 25 ml ASDIRECTED PRN IV SEE LABEL COMMENTS 01/26/20 16:45 Docusate Sodium (Colace) 100 mg BID PO 01/26/20 21:00 02/03/20 07:51 EZETIMIBE (Zetia) 10 mg QHS PO 01/26/20 21:00 02/02/20 21:23 Folic Acid (Folic Acid) 1 mg DAILY PO 01/27/20 09:00 02/03/20 07:52 Furosemide (Lasix) 20 mg DAILY PO 01/27/20 09:00 02/03/20 07:57 Glucagon (Glucagon) 1 mg ASDIRECTED PRN SC SEE LABEL COMMENTS 01/26/20 16:45 Glucose (Glucose) 16 GM ASDIRECTED PRN PO SEE LABEL COMMENTS 01/26/20 16:45 Heparin Sodium (Heparin (Flush)) 200 units ASDIRECTED PRN IV SEE LABEL COMMENTS 01/26/20 17:45 02/02/20 15:14 Heparin Sodium (Heparin (Flush)) 200 units PICC IV 01/26/20 18:00 02/03/20 05:42 Home Med (Med Rec Complete!) ASDIRECTED XX 01/26/20 15:45 01/26/20 15:33 DC Hydrocortisone (Cortef) 10 mg DAILY@1200 PO 01/27/20 12:00 02/03/20 12:03 Hydrocortisone (Cortef) 15 mg QAM PO 01/27/20 09:00 02/03/20 07:49 Insulin Human Lispro (HumaLOG INSULIN) See Protocol Table AC SC 01/26/20 17:30 02/03/20 12:03 Levothyroxine Sodium (Synthroid) 200 mcg DAILY@0600 PO 01/27/20 06:00 02/03/20 05:42 Lidocaine (Lidoderm Patch) 1 patch DAILY TOP 01/27/20 09:00 01/28/20 08:39 DC 01/28/20 08:15 Lidocaine (Lidoderm Patch) 2 patch DAILY TD 01/28/20 09:00 01/29/20 08:00 DC 01/29/20 06:11 Lidocaine (Lidoderm Patch) 2 patch DAILY@0500 TD 01/30/20 05:00 02/02/20 05:09 Lorazepam (Ativan) 0.5 mg Q8HP PRN PO ANXIETY 01/28/20 08:30 02/02/20 06:00 DC Losartan Potassium (Cozaar) 100 mg DAILY PO 01/27/20 09:00 02/03/20 07:53 Miscellaneous (Unresolved Patient Own Med Order) SEE LABEL COMMENTS DAILY XX 01/30/20 09:00 01/31/20 14:13 DC Multivitamins (Theragram-M) 1 tab DAILY PO 01/27/20 09:00 02/03/20 07:50 Nitroglycerin (Nitrostat (1/ 150)) 0.4 mg ASDIRECTED PRN SL CHEST PAIN 01/26/20 16:00 Non-Formulary Medication ( See Comment Field Below ) REMOVE LIDODERM PATCH DAILY@21 XX 01/28/20 21:00 02/02/20 21:00 Non-Formulary Medication ( See Comment Field Below ) REMOVE LIDODERM PATCH DAILY@21 XX 01/26/20 21:00 01/28/20 08:39 DC 01/27/20 20:11 Nystatin (Mycostatin Powder, Nystop) may sprinkle over ba... DAILY TOP 01/28/20 09:00 02/03/20 07:56 Nystatin (Mycostatin) apply to groin and perin... DAILY TOP 01/26/20 18:00 02/03/20 07:55 Oxycodone HCl (OxyCONTIN) 5 mg BID PRN PO PAIN LEVEL 7-10 01/29/20 07:00 01/29/20 07:57 DC Oxycodone HCl (OxyCONTIN) 10 mg BID PO 01/28/20 21:00 01/29/20 07:05 DC 01/28/20 20:07 Oxycodone HCl (Roxicodone, Oxyir) 5 mg DAILY@0800 PO 01/29/20 08:00 02/03/20 07:51 Oxycodone HCl (Roxicodone, Oxyir) 5 mg Q6H PRN PO MILD/MODERATE PAIN (PS 1-7) 01/28/20 08:00 01/28/20 08:31 DC Oxycodone HCl (Roxicodone, Oxyir) 5 mg Q6H PRN PO BREAKTHROUGH PAIN 01/28/20 08:30 01/29/20 07:05 DC Oxycodone HCl (Roxicodone, Oxyir) 5 mg Q6HP PRN PO PAIN LEVEL 4-7 01/29/20 07:00 02/02/20 21:30 Oxycodone HCl (Roxicodone, Oxyir) 10 mg Q4H PRN PO SEVERE PAIN (PS 8-10) 01/27/20 09:15 01/28/20 08:48 DC 01/28/20 07:01 Pantoprazole Sodium (Protonix) 40 mg DAILY PO 01/27/20 09:00 02/03/20 07:54 Patient Own Medication (Patient'S Own Med) testosterone 2.5 g pack... DAILY TOP 01/31/20 09:00 01/31/20 14:06 DC Patient Own Medication (Pt Own Med *Controlled Subst*) Hazardous agent (NIOSH 2,016 [gr... DAILY TOP 02/01/20 09:00 02/03/20 08:12 Polyethylene Glycol (Miralax) 1 pkt DAILY PO 01/27/20 09:00 01/30/20 08:14 Pramipexole Dihydrochloride (Mirapex) 0.5 mg BID PO 01/26/20 21:00 01/28/20 08:47 DC 01/28/20 08:14 Pramipexole Dihydrochloride (Mirapex) 0.5 mg BID@0600,2100 PO 01/28/20 21:00 02/03/20 05:42 Rosuvastatin Calcium (Crestor) 40 mg QHS PO 01/26/20 21:00 02/02/20 21:23 Salmeterol Xinafoate/ Fluticasone (Advair Hfa 230/ 21) 2 puff RBID INH 01/26/20 20:00 02/03/20 07:16 Senna (Senokot) 1 tab QHS PO 01/26/20 21:00 02/02/20 21:22 Sertraline HCl (Zoloft) 150 mg DAILY PO 01/27/20 09:00 02/03/20 07:52 Sodium Chloride (Saline Lock Flush) 10 ml ASDIRECTED PRN IV SEE LABEL COMMENTS 01/26/20 17:45 02/02/20 15:15 Sodium Chloride (Saline Lock Flush) 10 ml PICC IV 01/26/20 18:00 02/03/20 05:42 Tamsulosin HCl (Flomax) 0.4 mg DAILY PO 01/27/20 09:00 02/03/20 08:10 Thiamine HCl (Thiamine HCl) 100 mg DAILY PO 01/27/20 09:00 02/03/20 07:52 Tizanidine HCl (Zanaflex) 2 mg Q8HP PRN PO BACK PAIN 01/26/20 17:15 01/27/20 07:04 DC 01/27/20 00:45 Tizanidine HCl (Zanaflex) 2 mg Q8HP PRN PO BACK PAIN 01/26/20 17:15 01/26/20 17:27 DC Tramadol HCl (Ultram) 50 mg Q6H PRN PO PAIN 01/26/20 18:00 01/27/20 07:01 DC 01/27/20 05:14 Tramadol HCl (Ultram) 75 mg Q6H PRN PO PAIN 01/27/20 12:00 01/28/20 08:36 DC 01/28/20 06:26 Vitamin D (Vitamin D) 5,000 units DAILY PO 01/27/20 09:00 02/03/20 07:52 FATMATA DHALIWAL MD Feb 03, 2020 14:29
[2020-02-03] MEDS: SODIUM CHLORIDE 0.9% INJ 10 ML SYR IV PRN ×2 (17:10→21:23)
[2020-02-03 20:30] VITALS: BP 123/60
[2020-02-03] MEDS: ROSUVASTATIN 10 MG TAB (CRESTOR) PO SCH (20:34)
[2020-02-03] MEDS: SENNA 8.6 MG TAB (SENOKOT) PO SCH (20:34)
[2020-02-03] MEDS: EZETIMIBE 10 MG TAB (ZETIA) PO SCH (20:34)
[2020-02-03] MEDS: oxyCODONE 5MG TAB PO PRN (20:36)
[2020-02-03] MEDS: **NOTE PATIENT COMMENT** MISC XX SCH (20:36)
[2020-02-04] MEDS: ACETAMINOPHEN 650MG ER TAB (TYLENOL ARTHRITIS) PO SCH ×3 (05:02→21:34)
[2020-02-04] MEDS: LIDOCAINE 5% (LIDODERM) PATCH TD SCH (05:03)
[2020-02-04] MEDS: LEVOTHYROXINE 100MCG TABLET (0.1MG) PO SCH (05:03)
[2020-02-04] MEDS: PRAMIPEXOLE 0.25 MG TAB PO SCH ×2 (05:03→21:34)
[2020-02-04] MEDS: SODIUM CHLORIDE 0.9% INJ 10 ML SYR IV PRN (05:04)
[2020-02-04] MEDS: SODIUM CHLORIDE 0.9% INJ 10 ML SYR IV SCH ×2 (05:04→17:15)
[2020-02-04 06:20] VITALS: BP 180/88
[2020-02-04] MEDS: LOSARTAN 50MG TABLET PO SCH (06:30)
[2020-02-04] MEDS: HumaLOG INSULIN (NovoLOG) PER UNIT SC SCH ×3 (07:22→17:16)
[2020-02-04] MEDS: MIRALAX *UNIT DOSE* 17GM PACKET PO SCH (07:24)
[2020-02-04] MEDS: HYDROCORTISONE 10 MG TAB PO SCH ×2 (07:29→12:29)
[2020-02-04] MEDS: ADVAIR HFA 230/21MCG INHALER INH SCH ×2 (07:29→19:38)
[2020-02-04] MEDS: TAMSULOSIN 0.4 MG CAP PO SCH (07:29)
[2020-02-04] MEDS: VITAMIN D 1,000 INTERNATIONAL UNITS TABLET PO SCH (07:29)
[2020-02-04] MEDS: SERTRALINE 100 MG TAB PO SCH (07:30)
[2020-02-04] MEDS: DOCUSATE SODIUM 100 MG CAP PO SCH ×2 (07:30→21:34)
[2020-02-04] MEDS: FOLIC ACID 1 MG TAB PO SCH (07:30)
[2020-02-04] MEDS: MULTIVITAMINS/MINERALS THERAP 1 TAB PO SCH (07:30)
[2020-02-04] MEDS: BACLOFEN 10 MG TAB PO SCH ×2 (07:30→21:34)
[2020-02-04] MEDS: FUROSEMIDE 20 MG TAB PO SCH (07:31)
[2020-02-04] MEDS: PANTOPRAZOLE 40MG TAB (PROTONIX) PO SCH (07:31)
[2020-02-04] MEDS: APIXABAN 5 MG TAB (ELIQUIS) PO SCH ×2 (07:31→21:34)
[2020-02-04] MEDS: THIAMINE 100 MG TAB PO SCH (07:31)
[2020-02-04] MEDS: amLODIPine 5 MG TAB PO SCH (07:31)
[2020-02-04] MEDS: TESTIM TOP SCH (07:33)
[2020-02-04] MEDS: oxyCODONE 5MG TAB PO SCH (07:34)
[2020-02-04] MEDS: NYSTATIN 100,000 UNITS/GM TOPICAL PWD 15 GM TOP SCH (07:35)
[2020-02-04] MEDS: NYSTATIN CREAM 15 GM TOP SCH (07:35)
--- NOTE | 2020-02-04 08:55 | IPNPDOC ---
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 He was seen in [facility] January 11. [place] to have infection secondary to group B strep, discharged home with with P.O. Keflex. He worsened and had severe AMS and was then seen at [facility] for severe back pain, delerium with white blood count of 14K, CT abdomen and pelvis showed signs concerning for discitis and he was transferred January 16 [facility] for higher level of care. Ruled out for NH with negative troponins, incidental finding of 1.4 x 0.9 cm hypoechoic structure left kidney noted on ultrasound. Workup included MRI 01/17 revealed a T11-T12 discitis with prevertebral phlegmon versus abscess, lumbar biopsy performed. Additionally noted was severe degenerative disc disease T12-L4, L5, S1 with abnormal vertebral marrow signal T11-12, likely due to bone edema and infection, clumping of the cauda equina nerve roots and severe narrowing of the central canal due to disc bulge and posterior osteophytes, CT angiogram chest and chest x-ray noted for diffuse nonspecific prominence of pulmonary insufficiency. 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 ID recommended IV ceftriaxone for 14 days then Min dose reduction on January 31 for an additional 4 weeks. Picc line placed for maintaining IV Access. Discussed case with Mart Felix from [facility] who confirmed shift to 2G Q 24hr for 4 weeks which would go through 03/01. Patient admitted to acute rehabilitation for pain management, strengthening, endurance cognitive and safety issues while also managing complex medical issu es. Pain management improving as is exercise tolerance, fewer episodic mm spasms right upper trapezius/levator scap region, icing helps prevent escalation at end of day. No further hypersomnolence nor confusion as pain control , activity tolerance and sleep quality improves. Moving bowels regularly, no bladder issues. Pain much better controlled when current med regimen followed. Will begin further wean as tolerated. No recurrence of transient episode of chest discomfort he experienced a few days ago. Heart rate has been stable. Performing stretching exercises reviewed yesterday, encouraged to do more, may helpto pulling sensation in right foreleg could be cramps or spasticity. REVIEW OF SYSTEMS: The following is a completed review of systems and has been reviewed. Review of systems otherwise unremarkable. PAIN: mostly mid thoracic/right shoulder girdle now, minimal pain in Low back and lower extremities. EYES: double vision, uses prism glasses since brain surgery EARS, NOSE, & THROAT: No throat pain, or dysphagia, or rhinorrhea. CARDIOVASCULAR: Denies chest pain or palpitations. PULMONARY: Denies shortness of breath. GASTROINTESTINAL: no complaints GENITOURINARY: .no complaints MUSCULOSKELETAL: . markedly improving low back pain NEUROLOGICAL:. Status post recent episode of encephalopathy related to sepsis, clearing HEMATOLOGICAL: Anemic, fatigued SKIN: .Had Tick bite on presentation, no target lesions, improved interiginous rash PSYCHIATRIC: Reduction in anxiety, sleeping better. All other review of systems found to be negative. ALLERGIES: See Below MEDICATIONS: Reviewed, see below. OBJECTIVE: VITAL SIGNS: Please see below. SBP 180 in am with no distress, Losartan given early and came down to 122/67. GENERAL: Pleasant, calm and communicative, appreciative of no acute pain. HEENT: Extraocular movements intact .No adenopathy or thyromegaly. Full cervical range of motion Tenderness with trigger points right upper cervicothoracic region, levator scapula, diminishing with anticipatory cryotherapy program and stretching. CARDIOVASCULAR: S1 S2 regular LUNGS: Clear to auscultation bilaterally. No wheezes. No rhonchi. ABDOMEN: Soft, nontender, nondistended. Positive normal active bowel sounds. NEUROLOGICAL: Cranial nerves II through XII grossly intact. Sensation intact all 4 extremities. EXTREMITIES: 5/5 auto seat cover installer, elbow flexion, elbow extension, knee extension, foot dorsiflexion, plantar flexion. SKIN: .Picc left inner arm. Skin over back warm, dry. FUNCTIONAL STATUS: Case discussed in team conference. Continued to work on ambulation and strengthening , improved gait, speed and overall safety. Modified with toilet transfer with rolling walker and toileting tasks, ambulating from the room only to therapy gym with rolling walker and standby assistance. TENS unit helping to reduce low back pain. Pulse Ox/HR measurements no reported variability or symptoms working on uneven surfaces and stairs. LABORATORY DATA: Reviewed. Please see below. FBS 94 MICROBIOLOGY: Lymes negative ASSESSMENT AND PLAN: DIAGNOSES: Low back pain with left-sided lower extremity pain OA spine with multilevel DDD and Lumbar Stenosis Discitis s/p Sepsis Spinal Osteomyelitis Polyradiculoneuropathy with Cauda Equina syndrome Encephalopathy. Group B strep bacteremia. Atrial fibrillation. Essential hypertension History of hematuria secondary to traumatic Ann placement. HLD. CAD s/p 2 prior stents Anemia. Diabetes last hemoglobin A1c 7.3 12/30/2019 Endocrine dysfunction s/p resection pituitary adenoma Hypothyroidism. Hyponatremia. Sleep apnea Status posts hypoxemic respiratory failure. Tick bite Probable candidiasis ASSESSMENT:74 year-old right handed gentleman with past medical history of cortisone dependent endocrine deficiencies s/p remote resection of pituitary adenoma hat developed severe backpain with left lower extremity pain and generalized sepsis, failed conservative oral antibiotics for group B Strep as an outpatient prescribed after presentation at [facility] Jan 11, returned to [facility] and was referred to [facility] on for deterioration with encephalopathy, leukocytosis and eventual CT Guided lumbar biopsy 01/18 confirmed T11-T12 discitis, reportedly cultures no growth (was on antibiotics) however imaging did demonstrate Phlegmon vs abscess. Here for comprehensive rehabilitation, pain management and completion of IV antibiotics, monitoring closely for S/Sx of neurological deterioration. Has had a elo entry while we work to stay ahead of the pain instead of chasing the pain, without oversedation or other adverse side effects. Spreading out meds seems to be working well. Continue adjustments until under control, adding PM Icing and trial TENS, then once consistently tolerating higher levels of activity without significant set back, proceed with weaning down doses to long range tolerable targets. Lymes titre negative, may need to repeat, ESR, other panels if odd shooting pains/fatigue worsen, seem to be abating. Continue to have low threshold to re image for if sweats, fevers, AMS recur/worsen. PLAN: 1. Rehab- PT/OT advance gait and ADls, strengthen/stretch/maintain ROM all 4 limbs. We'll continue to work on timing pain medication with therapy interventions to optimize possible capacity to participate. 2. Neuro- clearing encephalopathy, polyradiculopathy, hx LEYLA-will need CPAP replaced/new sleep study. 3. Ortho- T11-12 Discitis/osteomyelitis with probable cauda equina syndrome, DDD, Lumbar stenosis/listhesis s/p prior spine stabilization, continue IV Ceftriaxone begun 01/17 for 2 weeks confirmed with [facility] that he is to be starting at an additional 4 weeks at reduced dose 2G/Q24hr through 12.14. Low threshold for re imaging if pain continues to be resistant or worsens or fever, worsening. Has reported history of Afib s/p ablation, not on a pacemaker currently, low margin or risk vs potential benefit of short term use of TENS as another approach to help manage pain and amplify effect of medications contributing to improved functional gains. Baclofen for mm spasm seems to have less adverse cognitive side effect, icing for PM spasms and reviewed isometric contract release exercises all contributing to continued progress. Starting wean by spacing PRN opiate doses, encourage tylenol as 1st line. But he may need that first early AM opiod dose prior to exercise for awhile. Encourage sufficient fluids during day. 4. Cardiac- hx of CAD with Stents, afib, currently stable - Anemia-monitor, supplement as indicated -HTN -amlodipine/losartan, may need to move timing up earlier since he is an early riser -HLD- c/u statins 5. Resp -s/p hypoxia/respiratory failure during sepsis, now clear and stable on room air, continue incentive spirometry, monitor for infection 6. Endo- hx of post resection of pituitary adenoma with DM, hypothyroid, adrenal insufficiency, c/u insulin and ISS, thyroid replacement, steroids, family brought in Testosterone supplementation now being administered on unit. FBS well controlled. 7. - episodic hematuria, incidental finding of renal ?cysts, monitor UA and output, PVR, bladder training if indicated. 8. GI ppx- s/p constipation, possible mild neurogenic bowel component, continue laxatives, add suppository/SCI bowel program. Continued electrolyte imbalance, monitor and supplement as indicated. On steroids, at risk GI irritation. Na i mproved. 9. Skin-nystatin creme then powder, air out skin areas 10.Tick bite, hopeful coverage with abx rx, observe for odd CV or Neurological manifestations, negative for Lymes screen. DISPOSITION Home with . TIME SPENT: Chart Review, examination and documentation 35 minutes. Allergies Coded Allergies: codeine (Verified Allergy, Intermediate, Rash, 01/17/20) gabapentin (Verified Adverse Reaction, Intermediate, JITTERY, 01/17/20) Vital Signs Vital Signs Date Time Temp Pulse Resp B/P (MAP) Pulse Ox O2 Delivery O2 Flow Rate FiO2 02/04/20 08:04 16 02/04/20 07:31 63 180/88 02/04/20 06:20 97.7 96 Room Air Laboratory Data Labs 24H Laboratory Tests 2 02/03/20 11:28: Bedside Glucose (Misc Panel) 142H 02/03/20 16:43: Bedside Glucose (Misc Panel) 196H 02/03/20 19:59: Bedside Glucose (Misc Panel) 202H 02/04/20 06:10: Bedside Glucose (Misc Panel) 94 Current Medications Current Medications Current Medications Medications (Trade) Dose Ordered Sig/Bishnu Route PRN Reason Start Time Stop Time Status Last Admin Dose Admin Acetaminophen (Tylenol Arthritis Er) 1,300 mg Q8H PO 01/28/20 06:00 02/04/20 05:02 Albuterol Sulfate (Proventil, Ventolin Hfa) 2 puff Q4H PRN INH SOB/WHEEZING 01/26/20 17:00 Amlodipine Besylate (Norvasc) 5 mg DAILY PO 01/27/20 09:00 02/04/20 07:31 Apixaban (Eliquis) 5 mg BID PO 01/26/20 21:00 02/04/20 07:31 Baclofen (Lioresal) 10 mg BID PO 01/27/20 09:00 01/28/20 08:25 DC 01/28/20 08:14 Baclofen (Lioresal) 10 mg BID PO 01/29/20 09:00 02/04/20 07:30 Baclofen (Lioresal) 20 mg BID PO 01/28/20 21:00 01/29/20 07:05 DC 01/28/20 20:07 Bisacodyl (Dulcolax Suppository) 10 mg 3XWP PRN W[place] CONSTIPATION 01/30/20 09:00 Bisacodyl (Dulcolax Suppository) 10 mg DAILY PRN [place] CONSTIPATION 01/27/20 09:00 01/30/20 09:08 DC Ceftriaxone Sodium 2 gm/ Dextrose 50 ml @ 100 mls/hr Q12H IV 01/26/20 16:00 02/03/20 14:18 DC 02/03/20 04:47 Ceftriaxone Sodium 2 gm/ Dextrose 50 ml @ 100 mls/hr Q12H IV 01/26/20 17:00 01/26/20 16:33 DC Ceftriaxone Sodium 2 gm/ Dextrose 50 ml @ 100 mls/hr QHS IV 02/03/20 21:00 02/03/20 20:35 Dextrose (Dextrose 50%) 25 ml ASDIRECTED PRN IV SEE LABEL COMMENTS 01/26/20 16:45 Docusate Sodium (Colace) 100 mg BID PO 01/26/20 21:00 02/03/20 20:34 EZETIMIBE (Zetia) 10 mg QHS PO 01/26/20 21:00 02/03/20 20:34 Folic Acid (Folic Acid) 1 mg DAILY PO 01/27/20 09:00 02/04/20 07:30 Furosemide (Lasix) 20 mg DAILY PO 01/27/20 09:00 02/04/20 07:31 Glucagon (Glucagon) 1 mg ASDIRECTED PRN SC SEE LABEL COMMENTS 01/26/20 16:45 Glucose (Glucose) 16 GM ASDIRECTED PRN PO SEE LABEL COMMENTS 01/26/20 16:45 Heparin Sodium (Heparin (Flush)) 200 units ASDIRECTED PRN IV SEE LABEL COMMENTS 01/26/20 17:45 02/04/20 05:04 Heparin Sodium (Heparin (Flush)) 200 units PICC IV 01/26/20 18:00 02/04/20 05:03 Home Med (Med Rec Complete!) ASDIRECTED XX 01/26/20 15:45 01/26/20 15:33 DC Hydrocortisone (Cortef) 10 mg DAILY@1200 PO 01/27/20 12:00 02/03/20 12:03 Hydrocortisone (Cortef) 15 mg QAM PO 01/27/20 09:00 02/04/20 07:29 Insulin Human Lispro (HumaLOG INSULIN) See Protocol Table AC SC 01/26/20 17:30 02/03/20 17:09 Levothyroxine Sodium (Synthroid) 200 mcg DAILY@0600 PO 01/27/20 06:00 02/04/20 05:03 Lidocaine (Lidoderm Patch) 1 patch DAILY TOP 01/27/20 09:00 01/28/20 08:39 DC 01/28/20 08:15 Lidocaine (Lidoderm Patch) 2 patch DAILY TD 01/28/20 09:00 01/29/20 08:00 DC 01/29/20 06:11 Lidocaine (Lidoderm Patch) 2 patch DAILY@0500 TD 01/30/20 05:00 02/04/20 05:03 Lorazepam (Ativan) 0.5 mg Q8HP PRN PO ANXIETY 01/28/20 08:30 02/02/20 06:00 DC Losartan Potassium (Cozaar) 100 mg DAILY PO 01/27/20 09:00 02/04/20 06:30 Miscellaneous (Unresolved Patient Own Med Order) SEE LABEL COMMENTS DAILY XX 01/30/20 09:00 01/31/20 14:13 DC Multivitamins (Theragram-M) 1 tab DAILY PO 01/27/20 09:00 02/04/20 07:30 Nitroglycerin (Nitrostat (1/ 150)) 0.4 mg ASDIRECTED PRN SL CHEST PAIN 01/26/20 16:00 Non-Formulary Medication ( See Comment Field Below ) REMOVE LIDODERM PATCH DAILY@21 XX 01/28/20 21:00 02/02/20 21:00 Non-Formulary Medication ( See Comment Field Below ) REMOVE LIDODERM PATCH DAILY@21 XX 01/26/20 21:00 01/28/20 08:39 DC 01/27/20 20:11 Nystatin (Mycostatin Powder, Nystop) may sprinkle over ba... DAILY TOP 01/28/20 09:00 02/04/20 07:35 Nystatin (Mycostatin) apply to groin and perin... DAILY TOP 01/26/20 18:00 02/04/20 07:35 Oxycodone HCl (OxyCONTIN) 5 mg BID PRN PO PAIN LEVEL 7-10 01/29/20 07:00 01/29/20 07:57 DC Oxycodone HCl (OxyCONTIN) 10 mg BID PO 01/28/20 21:00 01/29/20 07:05 DC 01/28/20 20:07 Oxycodone HCl (Roxicodone, Oxyir) 5 mg DAILY@0800 PO 01/29/20 08:00 02/04/20 07:34 Oxycodone HCl (Roxicodone, Oxyir) 5 mg Q6H PRN PO MILD/MODERATE PAIN (PS 1-7) 01/28/20 08:00 01/28/20 08:31 DC Oxycodone HCl (Roxicodone, Oxyir) 5 mg Q6H PRN PO BREAKTHROUGH PAIN 01/28/20 08:30 01/29/20 07:05 DC Oxycodone HCl (Roxicodone, Oxyir) 5 mg Q6HP PRN PO PAIN LEVEL 4-7 01/29/20 07:00 02/03/20 20:36 Oxycodone HCl (Roxicodone, Oxyir) 10 mg Q4H PRN PO SEVERE PAIN (PS 8-10) 01/27/20 09:15 01/28/20 08:48 DC 01/28/20 07:01 Pantoprazole Sodium (Protonix) 40 mg DAILY PO 01/27/20 09:00 02/04/20 07:31 Patient Own Medication (Patient'S Own Med) testosterone 2.5 g pack... DAILY TOP 01/31/20 09:00 01/31/20 14:06 DC Patient Own Medication (Pt Own Med *Controlled Subst*) Hazardous agent (NIOSH 2,016 [gr... DAILY TOP 02/01/20 09:00 02/04/20 07:33 Polyethylene Glycol (Miralax) 1 pkt DAILY PO 01/27/20 09:00 01/30/20 08:14 Pramipexole Dihydrochloride (Mirapex) 0.5 mg BID PO 01/26/20 21:00 01/28/20 08:47 DC 01/28/20 08:14 Pramipexole Dihydrochloride (Mirapex) 0.5 mg BID@0600,2100 PO 01/28/20 21:00 02/04/20 05:03 Rosuvastatin Calcium (Crestor) 40 mg QHS PO 01/26/20 21:00 02/03/20 20:34 Salmeterol Xinafoate/ Fluticasone (Advair Hfa 230/ 21) 2 puff RBID INH 01/26/20 20:00 02/04/20 07:29 Senna (Senokot) 1 tab QHS PO 01/26/20 21:00 02/03/20 20:34 Sertraline HCl (Zoloft) 150 mg DAILY PO 01/27/20 09:00 02/04/20 07:30 Sodium Chloride (Saline Lock Flush) 10 ml ASDIRECTED PRN IV SEE LABEL COMMENTS 01/26/20 17:45 02/04/20 05:04 Sodium Chloride (Saline Lock Flush) 10 ml PICC IV 01/26/20 18:00 02/04/20 05:04 Tamsulosin HCl (Flomax) 0.4 mg DAILY PO 01/27/20 09:00 02/04/20 07:29 Thiamine HCl (Thiamine HCl) 100 mg DAILY PO 01/27/20 09:00 02/04/20 07:31 Tizanidine HCl (Zanaflex) 2 mg Q8HP PRN PO BACK PAIN 01/26/20 17:15 01/27/20 07:04 DC 01/27/20 00:45 Tizanidine HCl (Zanaflex) 2 mg Q8HP PRN PO BACK PAIN 01/26/20 17:15 01/26/20 17:27 DC Tramadol HCl (Ultram) 50 mg Q6H PRN PO PAIN 01/26/20 18:00 01/27/20 07:01 DC 01/27/20 05:14 Tramadol HCl (Ultram) 75 mg Q6H PRN PO PAIN 01/27/20 12:00 01/28/20 08:36 DC 01/28/20 06:26 Vitamin D (Vitamin D) 5,000 units DAILY PO 01/27/20 09:00 02/04/20 07:29 FATMATA DHALIWAL MD Feb 04, 2020 08:55
[2020-02-04 11:04] VITALS: BP 122/67
[2020-02-04 14:00] VITALS: BP 123/60
[2020-02-04 20:00] VITALS: BP 126/59
[2020-02-04] MEDS: SENNA 8.6 MG TAB (SENOKOT) PO SCH (21:00)
[2020-02-04] MEDS: **NOTE PATIENT COMMENT** MISC XX SCH (21:33)
[2020-02-04] MEDS: cefTRIAXone SOD 2 GM in D5W MINI-BAG PLUS 50 ML IV SCH (21:33)
[2020-02-04] MEDS: ROSUVASTATIN 10 MG TAB (CRESTOR) PO SCH (21:34)
[2020-02-04] MEDS: EZETIMIBE 10 MG TAB (ZETIA) PO SCH (21:34)
[2020-02-05] MEDS: LIDOCAINE 5% (LIDODERM) PATCH TD SCH (05:00)
[2020-02-05] MEDS: LEVOTHYROXINE 100MCG TABLET (0.1MG) PO SCH (05:45)
[2020-02-05] MEDS: SODIUM CHLORIDE 0.9% INJ 10 ML SYR IV SCH ×2 (05:45→18:11)
[2020-02-05] MEDS: ACETAMINOPHEN 650MG ER TAB (TYLENOL ARTHRITIS) PO SCH ×3 (05:46→21:35)
[2020-02-05] MEDS: PRAMIPEXOLE 0.25 MG TAB PO SCH ×2 (05:46→21:35)
[2020-02-05 06:00] VITALS: BP 160/80
[2020-02-05] MEDS: ADVAIR HFA 230/21MCG INHALER INH SCH ×2 (07:10→20:18)
[2020-02-05] MEDS: MIRALAX *UNIT DOSE* 17GM PACKET PO SCH (08:27)
[2020-02-05] MEDS: SERTRALINE 100 MG TAB PO SCH (08:27)
[2020-02-05] MEDS: HumaLOG INSULIN (NovoLOG) PER UNIT SC SCH ×3 (08:27→18:10)
[2020-02-05] MEDS: MULTIVITAMINS/MINERALS THERAP 1 TAB PO SCH (08:28)
[2020-02-05] MEDS: BACLOFEN 10 MG TAB PO SCH ×2 (08:28→21:35)
[2020-02-05] MEDS: FUROSEMIDE 20 MG TAB PO SCH (08:28)
[2020-02-05] MEDS: HYDROCORTISONE 10 MG TAB PO SCH ×2 (08:28→12:54)
[2020-02-05] MEDS: THIAMINE 100 MG TAB PO SCH (08:28)
[2020-02-05] MEDS: TAMSULOSIN 0.4 MG CAP PO SCH (08:28)
[2020-02-05] MEDS: FOLIC ACID 1 MG TAB PO SCH (08:28)
[2020-02-05] MEDS: PANTOPRAZOLE 40MG TAB (PROTONIX) PO SCH (08:28)
[2020-02-05] MEDS: LOSARTAN 50MG TABLET PO SCH (08:29)
[2020-02-05] MEDS: DOCUSATE SODIUM 100 MG CAP PO SCH ×2 (08:30→21:35)
[2020-02-05] MEDS: APIXABAN 5 MG TAB (ELIQUIS) PO SCH ×2 (08:30→21:35)
[2020-02-05] MEDS: VITAMIN D 1,000 INTERNATIONAL UNITS TABLET PO SCH (08:30)
[2020-02-05] MEDS: amLODIPine 5 MG TAB PO SCH (08:30)
[2020-02-05] MEDS: NYSTATIN 100,000 UNITS/GM TOPICAL PWD 15 GM TOP SCH (08:32)
[2020-02-05] MEDS: NYSTATIN CREAM 15 GM TOP SCH (08:32)
[2020-02-05] MEDS: TESTIM TOP SCH (08:43)
--- NOTE | 2020-02-05 09:49 | IPNPDOC ---
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 He was seen in [facility] January 11. Barney to have infection secondary to group B strep, discharged home with with P.O. Keflex. He worsened and had severe AMS and was then seen at [facility] for severe back pain, delerium with white blood count of 14K, CT abdomen and pelvis showed signs concerning for discitis and he was transferred January 16 to the [facility]opedic specialty hospital for higher level of care. Ruled out for ID with negative troponins, incidental finding of 1.4 x 0.9 cm hypoechoic structure left kidney noted on ultrasound. Workup included MRI 01/17 revealed a T11-T12 discitis with prevertebral phlegmon versus abscess, lumbar biopsy performed. Additionally noted was severe degenerative disc disease T12-L4, L5, S1 with abnormal vertebral marrow signal T11-12, likely due to bone edema and infection, clumping of the cauda equina nerve roots and severe narrowing of the central canal due to disc bulge and posterior osteophytes, CT angiogram chest and chest x-ray noted for diffuse nonspecific prominence of pulmonary insufficiency. No focal consolidation .CT head 01/20/2020 noted for pr obable pituitary macroadenoma, small right hippocampal sulcus remnant cyst and bilateral mastoiditis. ID recommended IV ceftriaxone for 14 days then Min dose reduction on January 31 for an additional 4 weeks. Picc line placed for maintaining IV Access. Discussed case with Mart Felix from [facility] who confirmed shift to 2G Q 24hr for 4 weeks which would go through 03/01. Patient admitted to acute rehabilitation for pain management, strengthening, endurance cognitive and safety issues while also managing complex medical issues. Pain management improving as is exercise tolerance, fewer episodic mm spasms right upper trapezius/levator scap region, icing helps prevent escalation at end of day. No further hypersomnolence nor confusion as pain control , activity tolerance and sleep quality improves. Moving bowels regularly, no bladder issues. Pain much better controlled and have begun further wean as tolerated. Icing in anticipation and after activity proving very helpful. No recurrence of transient episode of chest discomfort he experienced a few days ago. Heart rate has been stable. Performing stretching exercises regularly, sleeping well. REVIEW OF SYSTEMS: The following is a completed review of systems and has been reviewed. Review of systems otherwise unremarkable. PAIN: mostly mid thoracic/right shoulder girdle now, minimal pain in Low back and lower extremities. EYES: double vision, uses prism glasses since brain surgery EARS, NOSE, & THROAT: No throat pain, or dysphagia, or rhinorrhea. CARDIOVASCULAR: Denies chest pain or palpitations. PULMONARY: Denies shortness of breath. GASTROINTESTINAL: no complaints GENITOURINARY: .no complaints MUSCULOSKELETAL: . markedly improving low back pain NEUROLOGICAL:. Status post recent episode of encephalopathy related to sepsis, clearing HEMATOLOGICAL: Anemic, fatigued SKIN: .Had Tick bite on presentation, no target lesions, improved interiginous rash PSYCHIATRIC: Reduction in anxiety, sleeping better. All other review of systems found to be negative. ALLERGIES: See Below MEDICATIONS: Reviewed, see below. OBJECTIVE: VITAL SIGNS: Please see below. SBP 160 in am with no distress, tends to drop after meds GENERAL: Pleasant, calm and communicative HEENT: Extraocular movements intact .No adenopathy or thyromegaly. Full cervical range of motion Tenderness with trigger points right upper cervicothoracic region, levator scapula, diminishing with anticipatory cryotherapy program and stretching. CARDIOVASCULAR: S1 S2 regular LUNGS: Clear to auscultation bilaterally. No wheezes. No rhonchi. ABDOMEN: Soft, nontender, nondistended. Positive normal active bowel sounds. NEUROLOGICAL: Cranial nerves II through XII grossly intact. Sensation intact all 4 extremities. EXTREMITIES: 5/5 metalizer, elbow flexion, elbow extension, knee extension, foot dorsiflexion, plantar flexion. Less tenderness CT/LS regions. SKIN: .Picc left inner arm. Skin over back warm, dry. FUNCTIONAL STATUS: Case discussed in team conference. Continued to work on ambulation and strengthening , improved gait, speed and overall safety. Pt. continues to demonstrate Hollis ambulation with use of RW; continued work on overall strength and endurance with no adverse effects noted. Also worked on stair negotiation and completes SBA with left handrail only. Therapist facilitated improved dynamic balance with use of SPC for step and reach and righting reaction ring toss ther act, SBA. Pt completed floor item retrieval with SPC, SBA. Ambulating with SPC 150' CGA. TENS unit helping to reduce low back pain. Pulse Ox/HR mirlande urements no reported variability or symptoms, continue working on uneven surfaces and stairs. LABORATORY DATA: Reviewed. Please see below. FBS 121 MICROBIOLOGY: Lymes negative ASSESSMENT AND PLAN: DIAGNOSES: Low back pain with left-sided lower extremity pain OA spine with multilevel DDD and Lumbar Stenosis Discitis s/p Sepsis Spinal Osteomyelitis Polyradiculoneuropathy with Cauda Equina syndrome Encephalopathy. Group B strep bacteremia. Atrial fibrillation. Essential hypertension History of hematuria secondary to traumatic Ann placement. HLD. CAD s/p 2 prior stents Anemia. Diabetes last hemoglobin A1c 7.3 12/30/2019 Endocrine dysfunction s/p resection pituitary adenoma Hypothyroidism. Hyponatremia. Sleep apnea Status posts hypoxemic respiratory failure. Tick bite Probable candidiasis ASSESSMENT:74 year-old right handed gentleman with past medical history of cortisone dependent endocrine deficiencies s/p remote resection of pituitary adenoma hat developed severe backpain with left lower extremity pain and generalized sepsis, failed conservative oral antibiotics for group B Strep as an outpatient prescribed after presentation at [facility] Jan 11, returned to [facility] and was referred to [facility] for deterioration with encephalopathy, leukocytosis and eventual CT Guided lumbar biopsy 01/18 confirmed T11-T12 discitis, reportedly cultures no growth (was on antibiotics) however imaging did demonstrate Phlegmon vs abscess. Here for comprehensive rehabilitation, pain management and completion of IV antibiotics, monitoring closely for S/Sx of neurological deterioration. Has had a elo entry while we work to stay ahead of the pain instead of chasing the pain, without oversedation or other adverse side effects. Spreading out meds seems to be working well. Continue adjustments until under control, adding PM Icing and trial TENS, then once consistently tolerating higher levels of activity without significant set back, proceed with weaning down doses to long range tolerable targets. Lymes titre negative, may need to repeat, ESR, other panels if odd shooting pains/fatigue worsen, seem to be abating. Continue to have low threshold to re image for if sweats, fevers, AMS recur/worsen. PLAN: 1. Rehab- PT/OT advance gait and ADls, strengthen/stretch/maintain ROM all 4 limbs. We'll continue to work on timing pain medication with therapy interventions to optimize possible capacity to participate. 2. Neuro- clearing encephalopathy, polyradiculopathy, hx LEYLA-will need CPAP replaced/new sleep study. 3. Ortho- T11-12 Discitis/osteomyelitis with probable cauda equina syndrome, DDD, Lumbar stenosis/listhesis s/p prior spine stabilization, continue IV Ceftriaxone begun 01/17 for 2 weeks confirmed with [facility] that he is to be starting at an additional 4 weeks at reduced dose 2G/Q24hr through 12.14. Low threshold for re imaging if pain continues to be resistant or worsens or fever, worsening. Has reported history of Afib s/p ablation, not on a pacemaker currently, low margin or risk vs potential benefit of short term use of TENS as another approach to help manage pain and amplify effect of medications contributing to improved functional gains. Baclofen for mm spasm seems to have less adverse cognitive side effect, icing for PM spasms and reviewed isometric contract release exercises all contributing to continued progress. 4. Cardiac- hx of CAD with Stents, afib, currently stable - Anemia-monitor, supplement as indicated -HTN -amlodipine -HLD- c/u statins 5. Resp -s/p hypoxia/respiratory failure during sepsis, now clear and stable on room air, continue incentive spirometry, monitor for infection 6. Endo- hx of post resection of pituitary adenoma with DM, hypothyroid, adrenal insufficiency, c/u insulin and ISS, thyroid replacement, steroids, family brought in Testosterone supplementation now being administered on unit. FBS well controlled. 7. - episodic hematuria, incidental finding of renal ?cysts, monitor UA and output, PVR, bladder training if indicated. 8. GI ppx- s/p constipation, possible mild neurogenic bowel component, continue laxatives, add suppository/SCI bowel program. Continued electrolyte imbalance, monitor and supplement as indicated. On steroids, at risk GI irritation. Na improved. 9. Skin-nystatin creme then powder, air out skin areas 10.Tick bite, hopeful coverage with abx rx, observe for odd CV or Neurological manifestations, negative for Lymes screen. DISPOSITION Home with . TIME SPENT: Chart Review, examination and documentation 35 minutes. Allergies Coded Allergies: codeine (Verified Allergy, Intermediate, Rash, 01/17/20) gabapentin (Verified Adverse Reaction, Intermediate, JITTERY, 01/17/20) Vital Signs Vital Signs Date Time Temp Pulse Resp B/P (MAP) Pulse Ox O2 Delivery O2 Flow Rate FiO2 02/05/20 06:00 97.4 60 17 160/80 (106) 96 Room Air Laboratory Data Labs 24H Laboratory Tests 2 02/04/20 12:11: Bedside Glucose (Misc Panel) 112H 02/04/20 16:55: Bedside Glucose (Misc Panel) 203H 02/04/20 20:09: Bedside Glucose (Misc Panel) 176H 02/05/20 05:59: Bedside Glucose (Misc Panel) 121H Current Medications Current Medications Current Medications Medications (Trade) Dose Ordered Sig/Bishnu Route PRN Reason Start Time Stop Time Status Last Admin Dose Admin Acetaminophen (Tylenol Arthritis Er) 1,300 mg Q8H PO 01/28/20 06:00 02/05/20 05:46 Albuterol Sulfate (Proventil, Ventolin Hfa) 2 puff Q4H PRN INH SOB/WHEEZING 01/26/20 17:00 Amlodipine Besylate (Norvasc) 5 mg DAILY PO 01/27/20 09:00 02/05/20 08:30 Apixaban (Eliquis) 5 mg BID PO 01/26/20 21:00 02/05/20 08:30 Baclofen (Lioresal) 10 mg BID PO 01/27/20 09:00 01/28/20 08:25 DC 01/28/20 08:14 Baclofen (Lioresal) 10 mg BID PO 01/29/20 09:00 02/05/20 08:28 Baclofen (Lioresal) 20 mg BID PO 01/28/20 21:00 01/29/20 07:05 DC 01/28/20 20:07 Bisacodyl (Dulcolax Suppository) 10 mg 3XWP PRN ID CONSTIPATION 01/30/20 09:00 Bisacodyl (Dulcolax Suppository) 10 mg DAILY PRN ID CONSTIPATION 01/27/20 09:00 01/30/20 09:08 DC Ceftriaxone Sodium 2 gm/ Dextrose 50 ml @ 100 mls/hr Q12H IV 01/26/20 16:00 02/03/20 14:18 DC 02/03/20 04:47 Ceftriaxone Sodium 2 gm/ Dextrose 50 ml @ 100 mls/hr Q12H IV 01/26/20 17:00 01/26/20 16:33 DC Ceftriaxone Sodium 2 gm/ Dextrose 50 ml @ 100 mls/hr QHS IV 02/03/20 21:00 02/04/20 21:33 Dextrose (Dextrose 50%) 25 ml ASDIRECTED PRN IV SEE LABEL COMMENTS 01/26/20 16:45 Docusate Sodium (Colace) 100 mg BID PO 01/26/20 21:00 02/05/20 08:30 EZETIMIBE (Zetia) 10 mg QHS PO 01/26/20 21:00 02/04/20 21:34 Folic Acid (Folic Acid) 1 mg DAILY PO 01/27/20 09:00 02/05/20 08:28 Furosemide (Lasix) 20 mg DAILY PO 01/27/20 09:00 02/05/20 08:28 Glucagon (Glucagon) 1 mg ASDIRECTED PRN SC SEE LABEL COMMENTS 01/26/20 16:45 Glucose (Glucose) 16 GM ASDIRECTED PRN PO SEE LABEL COMMENTS 01/26/20 16:45 Heparin Sodium (Heparin (Flush)) 200 units ASDIRECTED PRN IV SEE LABEL COMMENTS 01/26/20 17:45 02/04/20 05:04 Heparin Sodium (Heparin (Flush)) 200 units PICC IV 01/26/20 18:00 02/05/20 05:45 Home Med (Med Rec Complete!) ASDIRECTED XX 01/26/20 15:45 01/26/20 15:33 DC Hydrocortisone (Cortef) 10 mg DAILY@1200 PO 01/27/20 12:00 02/04/20 12:29 Hydrocortisone (Cortef) 15 mg QAM PO 01/27/20 09:00 02/05/20 08:28 Insulin Human Lispro (HumaLOG INSULIN) See Protocol Table AC SC 01/26/20 17:30 02/05/20 08:27 Levothyroxine Sodium (Synthroid) 200 mcg DAILY@0600 PO 01/27/20 06:00 02/05/20 05:45 Lidocaine (Lidoderm Patch) 1 patch DAILY TOP 01/27/20 09:00 01/28/20 08:39 DC 01/28/20 08:15 Lidocaine (Lidoderm Patch) 2 patch DAILY TD 01/28/20 09:00 01/29/20 08:00 DC 01/29/20 06:11 Lidocaine (Lidoderm Patch) 2 patch DAILY@0500 TD 01/30/20 05:00 02/04/20 05:03 Lorazepam (Ativan) 0.5 mg Q8HP PRN PO ANXIETY 01/28/20 08:30 02/02/20 06:00 DC Losartan Potassium (Cozaar) 100 mg DAILY PO 01/27/20 09:00 02/05/20 08:29 Miscellaneous (Unresolved Patient Own Med Order) SEE LABEL COMMENTS DAILY XX 01/30/20 09:00 01/31/20 14:13 DC Multivitamins (Theragram-M) 1 tab DAILY PO 01/27/20 09:00 02/05/20 08:28 Nitroglycerin (Nitrostat (1/ 150)) 0.4 mg ASDIRECTED PRN SL CHEST PAIN 01/26/20 16:00 Non-Formulary Medication ( See Comment Field Below ) REMOVE LIDODERM PATCH DAILY@21 XX 01/28/20 21:00 02/04/20 21:33 Non-Formulary Medication ( See Comment Field Below ) REMOVE LIDODERM PATCH DAILY@21 XX 01/26/20 21:00 01/28/20 08:39 DC 01/27/20 20:11 Nystatin (Mycostatin Powder, Nystop) may sprinkle over ba... DAILY TOP 01/28/20 09:00 02/05/20 08:32 Nystatin (Mycostatin) apply to groin and perin... DAILY TOP 01/26/20 18:00 02/05/20 08:32 Oxycodone HCl (OxyCONTIN) 5 mg BID PRN PO PAIN LEVEL 7-10 01/29/20 07:00 01/29/20 07:57 DC Oxycodone HCl (OxyCONTIN) 10 mg BID PO 01/28/20 21:00 01/29/20 07:05 DC 01/28/20 20:07 Oxycodone HCl (Roxicodone, Oxyir) 5 mg DAILY@0800 PO 01/29/20 08:00 02/04/20 11:01 DC 02/04/20 07:34 Oxycodone HCl (Roxicodone, Oxyir) 5 mg Q6H PRN PO MILD/MODERATE PAIN (PS 1-7) 01/28/20 08:00 01/28/20 08:31 DC Oxycodone HCl (Roxicodone, Oxyir) 5 mg Q6H PRN PO BREAKTHROUGH PAIN 01/28/20 08:30 01/29/20 07:05 DC Oxycodone HCl (Roxicodone, Oxyir) 5 mg Q6HP PRN PO PAIN LEVEL 4-7 01/29/20 07:00 02/04/20 11:03 DC 02/03/20 20:36 Oxycodone HCl (Roxicodone, Oxyir) 5 mg Q8HP PRN PO PAIN LEVEL 4-7 02/04/20 11:15 Oxycodone HCl (Roxicodone, Oxyir) 10 mg Q4H PRN PO SEVERE PAIN (PS 8-10) 01/27/20 09:15 01/28/20 08:48 DC 01/28/20 07:01 Pantoprazole Sodium (Protonix) 40 mg DAILY PO 01/27/20 09:00 02/05/20 08:28 Patient Own Medication (Patient'S Own Med) testosterone 2.5 g pack... DAILY TOP 01/31/20 09:00 01/31/20 14:06 DC Patient Own Medication (Pt Own Med *Controlled Subst*) Hazardous agent (NIOSH 2,016 [gr... DAILY TOP 02/01/20 09:00 02/05/20 08:43 Polyethylene Glycol (Miralax) 1 pkt DAILY PO 01/27/20 09:00 02/05/20 08:27 Pramipexole Dihydrochloride (Mirapex) 0.5 mg BID PO 01/26/20 21:00 01/28/20 08:47 DC 01/28/20 08:14 Pramipexole Dihydrochloride (Mirapex) 0.5 mg BID@0600,2100 PO 01/28/20 21:00 02/05/20 05:46 Rosuvastatin Calcium (Crestor) 40 mg QHS PO 01/26/20 21:00 02/04/20 21:34 Salmeterol Xinafoate/ Fluticasone (Advair Hfa 230/ 21) 2 puff RBID INH 01/26/20 20:00 02/05/20 07:10 Senna (Senokot) 1 tab QHS PO 01/26/20 21:00 02/03/20 20:34 Sertraline HCl (Zoloft) 150 mg DAILY PO 01/27/20 09:00 02/05/20 08:27 Sodium Chloride (Saline Lock Flush) 10 ml ASDIRECTED PRN IV SEE LABEL COMMENTS 01/26/20 17:45 02/04/20 05:04 Sodium Chloride (Saline Lock Flush) 10 ml PICC IV 01/26/20 18:00 02/05/20 05:45 Tamsulosin HCl (Flomax) 0.4 mg DAILY PO 01/27/20 09:00 02/05/20 08:28 Thiamine HCl (Thiamine HCl) 100 mg DAILY PO 01/27/20 09:00 02/05/20 08:28 Tizanidine HCl (Zanaflex) 2 mg Q8HP PRN PO BACK PAIN 01/26/20 17:15 01/27/20 07:04 DC 01/27/20 00:45 Tizanidine HCl (Zanaflex) 2 mg Q8HP PRN PO BACK PAIN 01/26/20 17:15 01/26/20 17:27 DC Tramadol HCl (Ultram) 50 mg Q6H PRN PO PAIN 01/26/20 18:00 01/27/20 07:01 DC 01/27/20 05:14 Tramadol HCl (Ultram) 75 mg Q6H PRN PO PAIN 01/27/20 12:00 01/28/20 08:36 DC 01/28/20 06:26 Vitamin D (Vitamin D) 5,000 units DAILY PO 01/27/20 09:00 02/05/20 08:30 FATMATA DHALIWAL MD Feb 05, 2020 09:49
[2020-02-05 14:00] VITALS: BP 116/59
[2020-02-05 20:15] VITALS: BP 125/58
[2020-02-05] MEDS: **NOTE PATIENT COMMENT** MISC XX SCH (21:00)
[2020-02-05] MEDS: SENNA 8.6 MG TAB (SENOKOT) PO SCH (21:00)
[2020-02-05] MEDS: cefTRIAXone SOD 2 GM in D5W MINI-BAG PLUS 50 ML IV SCH (21:01)
[2020-02-05] MEDS: oxyCODONE 5MG TAB PO PRN (21:34)
[2020-02-05] MEDS: EZETIMIBE 10 MG TAB (ZETIA) PO SCH (21:35)
[2020-02-05] MEDS: ROSUVASTATIN 10 MG TAB (CRESTOR) PO SCH (21:35)
[2020-02-06 06:00] VITALS: BP 141/80
[2020-02-06] MEDS: PRAMIPEXOLE 0.25 MG TAB PO SCH ×2 (06:29→20:29)
[2020-02-06] MEDS: LIDOCAINE 5% (LIDODERM) PATCH TD SCH (06:29)
[2020-02-06] MEDS: LEVOTHYROXINE 100MCG TABLET (0.1MG) PO SCH (06:29)
[2020-02-06] MEDS: ACETAMINOPHEN 650MG ER TAB (TYLENOL ARTHRITIS) PO SCH ×3 (06:29→20:28)
[2020-02-06] MEDS: SODIUM CHLORIDE 0.9% INJ 10 ML SYR IV SCH ×2 (06:30→17:25)
[2020-02-06] MEDS: ADVAIR HFA 230/21MCG INHALER INH SCH ×2 (07:16→19:44)
[2020-02-06] MEDS: HumaLOG INSULIN (NovoLOG) PER UNIT SC SCH ×3 (07:30→17:26)
[2020-02-06] MEDS: FOLIC ACID 1 MG TAB PO SCH (08:48)
[2020-02-06] MEDS: VITAMIN D 1,000 INTERNATIONAL UNITS TABLET PO SCH (08:48)
[2020-02-06] MEDS: DOCUSATE SODIUM 100 MG CAP PO SCH ×2 (08:48→20:28)
[2020-02-06] MEDS: MULTIVITAMINS/MINERALS THERAP 1 TAB PO SCH (08:48)
[2020-02-06] MEDS: SERTRALINE 100 MG TAB PO SCH (08:49)
[2020-02-06] MEDS: HYDROCORTISONE 10 MG TAB PO SCH ×2 (08:50→11:10)
[2020-02-06] MEDS: LOSARTAN 50MG TABLET PO SCH (08:50)
[2020-02-06] MEDS: MIRALAX *UNIT DOSE* 17GM PACKET PO SCH (08:51)
[2020-02-06] MEDS: amLODIPine 5 MG TAB PO SCH (08:51)
[2020-02-06] MEDS: THIAMINE 100 MG TAB PO SCH (08:51)
[2020-02-06] MEDS: APIXABAN 5 MG TAB (ELIQUIS) PO SCH ×2 (08:52→20:28)
[2020-02-06] MEDS: FUROSEMIDE 20 MG TAB PO SCH (08:52)
[2020-02-06] MEDS: PANTOPRAZOLE 40MG TAB (PROTONIX) PO SCH (08:52)
[2020-02-06] MEDS: TAMSULOSIN 0.4 MG CAP PO SCH (08:53)
[2020-02-06] MEDS: BACLOFEN 10 MG TAB PO SCH ×2 (08:53→20:28)
[2020-02-06] MEDS: NYSTATIN 100,000 UNITS/GM TOPICAL PWD 15 GM TOP SCH (09:00)
[2020-02-06] MEDS: TESTIM TOP SCH (09:01)
[2020-02-06] MEDS: NYSTATIN CREAM 15 GM TOP SCH (09:02)
[2020-02-06] MEDS: oxyCODONE 5MG TAB PO PRN ×2 (11:10→22:12)
[2020-02-06] MEDS ORDERED: PERCOCET 5MG/325MG TAB PO PRN (13:45)
[2020-02-06 14:00] VITALS: BP 154/72
--- NOTE | 2020-02-06 14:07 | IPNPDOC ---
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 He was seen in [facility] January 11. [place] to have infection secondary to group B strep, discharged home with with P.O. Keflex. He worsened and had severe AMS and was then seen at [facility] for severe back pain, delerium with white blood count of 14K, CT abdomen and pelvis showed signs concerning for discitis and [facility] Ruled out for UT with negative troponins, incidental finding of 1.4 x 0.9 cm hypoechoic structure left kidney noted on ultrasound. Workup included MRI 01/17 revealed a T11-T12 discitis with prevertebral phlegmon versus abscess, lumbar biopsy performed. Additionally noted was severe degenerative disc disease T12-L4, L5, S1 with abnormal vertebral marrow signal T11-12, likely due to bone edema and infection, clumping of the cauda equina nerve roots and severe narrowing of the central canal due to disc bulge and posterior osteophytes, CT angiogram chest and chest x-ray noted for diffuse nonspecific prominence of pulmonary insufficiency. 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 ID recommended IV ceftriaxone for 14 days then Min dose reduction on January 31 for an additional 4 weeks. Picc line placed for maintaining IV Access. Discussed case with Mart Felix from [facility] who confirmed shift to 2G Q 24hr for 4 weeks which would go through 03/01. Patient admitted to acute rehabilitation for pain management, strengthening, endurance cognitive and safety issues while also managing complex medical issues. Pain management improving as is exercise tolerance, fewer episodic mm spasms right upper trapezius/levator scap region, icing helps prevent escalation at end of day. No further hypersomnolence nor confusion as pain control , activity tolerance and sleep quality improves. Moving bowels regularly, no bladder issues. Pain much better controlled and have begun further wean as tolerated. Icing in anticipation and after activity proving very helpful. No recurrence of transient episode of chest discomfort he experienced a few days ago. Heart rate has been stable. Performing stretching exercises regularly, sleeping well. Started out well this morning, got a bit sore and fatigued midday, made last several days with one or no opiate med dosing, optimizing the LS Support, heat/ ice and Tylenol instead. REVIEW OF SYSTEMS: The following is a completed review of systems and has been reviewed. Review of systems otherwise unremarkable. PAIN: mostly mid thoracic/right shoulder girdle now, minimal pain in Low back and lower extremities. EYES: double vision, uses prism glasses since brain surgery EARS, NOSE, & THROAT: No throat pain, or dysphagia, or rhinorrhea. CARDIOVASCULAR: Denies chest pain or palpitations. PULMONARY: Denies shortness of breath. GASTROINTESTINAL: no complaints GENITOURINARY: .no complaints MUSCULOSKELETAL: . markedly improving low back pain NEUROLOGICAL:. Status post recent episode of encephalopathy related to sepsis, clearing HEMATOLOGICAL: Anemic, fatigued SKIN: .Had Tick bite on presentation, no target lesions, improved interiginous rash PSYCHIATRIC: Reduction in anxiety, sleeping better. All other review of systems found to be negative. ALLERGIES: See Below MEDICATIONS: Reviewed, see below. OBJECTIVE: VITAL SIGNS: Please see below. SBP 160 in am with no distress, tends to drop after meds GENERAL: Pleasant, calm and communicative HEENT: Extraocular movements intact .No adenopathy or thyromegaly. Full cervical range of motion Tenderness with trigger points right upper cervicothoracic region, levator scapula, diminishing with anticipatory cryotherapy program and stretching. CARDIOVASCULAR: S1 S2 regular LUNGS: Clear to auscultation bilaterally. No wheezes. No rhonchi. ABDOMEN: Soft, nontender, nondistended. Positive normal active bowel sounds. NEUROLOGICAL: Cranial nerves II through XII grossly intact. Sensation intact all 4 extremities. EXTREMITIES: 5/5 concrete mason, elbow flexion, elbow extension, knee extension, foot dorsiflexion, plantar flexion. Less tenderness CT/LS regions. SKIN: .Picc left inner arm. Skin over back warm, dry. FUNCTIONAL STATUS: improved gait, speed and overall safety. Pt. continues to demonstrate Hollis ambulation with use of RW; continued work on overall strength and endurance. Inconsistent pain tolerance, at times needs more meds and icing/Hotpacks/TENS for management than others. Pulse Ox/HR measurements no reported variability or symptoms, continue working on uneven surfaces and stairs. LABORATORY DATA: Reviewed. Please see below. last FBS 83 MICROBIOLOGY: Lymes negative ASSESSMENT AND PLAN: DIAGNOSES: Low back pain with left-sided lower extremity pain OA spine with multilevel DDD and Lumbar Stenosis Discitis s/p Sepsis Spinal Osteomyelitis Polyradiculoneuropathy with Cauda Equina syndrome Encephalopathy. Group B strep bacteremia. Atrial fibrillation. Essential hypertension History of hematuria secondary to traumatic Ann placement. HLD. CAD s/p 2 prior stents Anemia. Diabetes last hemoglobin A1c 7.3 12/30/2019 Endocrine dysfunction s/p resection pituitary adenoma Hypothyroidism. Hyponatremia. Sleep apnea Status posts hypoxemic respiratory failure. Tick bite Probable candidiasis ASSESSMENT:74 year-old right handed gentleman with past medical history of cortisone dependent endocrine deficiencies s/p remote resection of pituitary adenoma hat developed severe backpain with left lower extremity pain and generalized sepsis, failed conservative oral antibiotics for group B Strep as an outpatient prescribed after presentation at [facility] Jan 11, returned to [facility] and was referred to [facility] on for deterioration with encephalopathy, leukocytosis and eventual CT Guided lumbar biopsy 01/18 confirmed T11-T12 discitis, reportedly cultures no growth (was on antibiotics) however imaging did demonstrate Phlegmon vs abscess. Here for comprehensive rehabilitation, pain management and completion of IV antibiotics, monitoring closely for S/Sx of neurological deterioration. Has had a elo entry while we work to stay ahead of the pain instead of chasing the pain, without oversedation or other adverse side effects. Spreading out meds seems to be working well. Con tinue adjustments until under control, adding PM Icing and trial TENS, then once consistently tolerating higher levels of activity without significant set back, proceed with weaning down doses to long range tolerable targets. Lymes titre negative, may need to repeat, ESR, other panels if odd shooting pains/fatigue worsen, seem to be abating. Continue to have low threshold to re image for if sweats, fevers, AMS recur/worsen. PLAN: 1. Rehab- PT/OT advance gait and ADls, strengthen/stretch/maintain ROM all 4 limbs. We'll continue to work on timing pain medication with therapy interventions to optimize possible capacity to participate. 2. Neuro- clearing encephalopathy, polyradiculopathy, hx LEYLA-will need CPAP replaced/new sleep study. 3. Ortho- T11-12 Discitis/osteomyelitis with probable cauda equina syndrome, DDD, Lumbar stenosis/listhesis s/p prior spine stabilization, continue IV Ceftriaxone begun 01/17 for 2 weeks confirmed with [facility] that he is to be starting at an additional 4 weeks at reduced dose 2G/Q24hr through 12.14. Low threshold for re imaging if pain continues to be resistant or worsens or fever, worsening. Has reported history of Afib s/p ablation, not on a pacemaker currently, NSR, low margin or risk vs potential benefit of short term use of T ENS as another approach to help manage pain and amplify effect of medications contributing to improved functional gains. Baclofen for mm spasm seems to have less adverse cognitive side effect will slightly bump the PM dose for better carryover to reduce AM spasms, icing alternating with hotpacks for PM spasms and reviewed isometric contract release exercises all contributing to continued progress. He also is using LS support to stabilize the spine during activities and finds that helpful. Will continue s hift to less potent pain meds balancing adequate pain relief for his challenging situation. Will drop back on amount of scheduled long acting Tylenol 650 and check labs. 4. Cardiac- hx of CAD with Stents, afib, currently stable - Anemia-monitor, supplement as indicated -HTN -amlodipine -HLD- c/u statins 5. Resp -s/p hypoxia/respiratory failure during sepsis, now clear and stable on room air, continue incentive spirometry, monitor for infection 6. Endo- hx of post resection of pituitary adenoma with DM, hypothyroid, adrenal insufficiency, c/u insulin and ISS, thyroid replacement, steroids, family brought in Testosterone supplementation now being administered on unit. FBS well controlled. 7. - episodic hematuria, incidental finding of renal ?cysts, monitor UA and output, PVR, bladder training if indicated. 8. GI ppx- s/p constipation, possible mild neurogenic bowel component, continue laxatives, add suppository/SCI bowel program. Continued electrolyte imbalance Na improved, LFTS escalating, related to healing and possibly meds. On steroids, at risk GI irritation. Have decreased Acetaminophen, will continue to transition down pain meds. Consider decrease pramipexole and Lasix that he came over on. 9. Skin-nystatin creme then powder, air out skin areas 10.Tick bite, hopeful coverage with abx rx, observe for odd CV or Neurological manifestations, negative for Lymes screen. DISPOSITION Home with . TIME SPENT: Chart Review, examination and documentation 35 minutes. Allergies Coded Allergies: codeine (Verified Allergy, Intermediate, Rash, 01/17/20) gabapentin (Verified Adverse Reaction, Intermediate, JITTERY, 01/17/20) Vital Signs Vital Signs Date Time Temp Pulse Resp B/P (MAP) Pulse Ox O2 Delivery O2 Flow Rate FiO2 02/06/20 11:45 18 Room Air 02/06/20 08:50 141/80 02/06/20 06:00 97.9 62 97 Laboratory Data Labs 24H Laboratory Tests 2 02/05/20 16:14: Bedside Glucose (Misc Panel) 198H 02/05/20 20:21: Bedside Glucose (Misc Panel) 284H 02/06/20 06:27: Bedside Glucose (Misc Panel) 93 02/06/20 11:34: Bedside Glucose (Misc Panel) 119H Current Medications Current Medications Current Medications Medications (Trade) Dose Ordered Sig/Bishnu Route PRN Reason Start Time Stop Time Status Last Admin Dose Admin Acetaminophen (Tylenol Arthritis Er) 650 mg Q8H PO 02/06/20 14:00 Acetaminophen (Tylenol Arthritis Er) 1,300 mg Q8H PO 01/28/20 06:00 02/06/20 13:47 DC 02/06/20 06:29 Albuterol Sulfate (Proventil, Ventolin Hfa) 2 puff Q4H PRN INH SOB/WHEEZING 01/26/20 17:00 Amlodipine Besylate (Norvasc) 5 mg DAILY PO 01/27/20 09:00 02/06/20 08:51 Apixaban (Eliquis) 5 mg BID PO 01/26/20 21:00 02/06/20 08:52 Baclofen (Lioresal) 5 mg QHS PO 02/06/20 21:00 Baclofen (Lioresal) 10 mg BID PO 01/27/20 09:00 01/28/20 08:25 DC 01/28/20 08:14 Baclofen (Lioresal) 10 mg BID PO 01/29/20 09:00 02/06/20 08:53 Baclofen (Lioresal) 20 mg BID PO 01/28/20 21:00 01/29/20 07:05 DC 01/28/20 20:07 Bisacodyl (Dulcolax Suppository) 10 mg 3XWP PRN MD CONSTIPATION 01/30/20 09:00 Bisacodyl (Dulcolax Suppository) 10 mg DAILY PRN MD CONSTIPATION 01/27/20 09:00 01/30/20 09:08 DC Ceftriaxone Sodium 2 gm/ Dextrose 50 ml @ 100 mls/hr Q12H IV 01/26/20 16:00 02/03/20 14:18 DC 02/03/20 04:47 Ceftriaxone Sodium 2 gm/ Dextrose 50 ml @ 100 mls/hr Q12H IV 01/26/20 17:00 01/26/20 16:33 DC Ceftriaxone Sodium 2 gm/ Dextrose 50 ml @ 100 mls/hr QHS IV 02/03/20 21:00 02/05/20 21:01 Dextrose (Dextrose 50%) 25 ml ASDIRECTED PRN IV SEE LABEL COMMENTS 01/26/20 16:45 Docusate Sodium (Colace) 100 mg BID PO 01/26/20 21:00 02/06/20 08:48 EZETIMIBE (Zetia) 10 mg QHS PO 01/26/20 21:00 02/05/20 21:35 Folic Acid (Folic Acid) 1 mg DAILY PO 01/27/20 09:00 02/06/20 08:48 Furosemide (Lasix) 20 mg DAILY PO 01/27/20 09:00 02/06/20 08:52 Glucagon (Glucagon) 1 mg ASDIRECTED PRN SC SEE LABEL COMMENTS 01/26/20 16:45 Glucose (Glucose) 16 GM ASDIRECTED PRN PO SEE LABEL COMMENTS 01/26/20 16:45 Heparin Sodium (Heparin (Flush)) 200 units ASDIRECTED PRN IV SEE LABEL COMMENTS 01/26/20 17:45 02/04/20 05:04 Heparin Sodium (Heparin (Flush)) 200 units PICC IV 01/26/20 18:00 02/06/20 06:30 Home Med (Med Rec Complete!) ASDIRECTED XX 01/26/20 15:45 01/26/20 15:33 DC Hydrocortisone (Cortef) 10 mg DAILY@1200 PO 01/27/20 12:00 02/06/20 11:10 Hydrocortisone (Cortef) 15 mg QAM PO 01/27/20 09:00 02/06/20 08:50 Insulin Human Lispro (HumaLOG INSULIN) See Protocol Table AC SC 01/26/20 17:30 02/06/20 12:04 Levothyroxine Sodium (Synthroid) 200 mcg DAILY@0600 PO 01/27/20 06:00 02/06/20 06:29 Lidocaine (Lidoderm Patch) 1 patch DAILY TOP 01/27/20 09:00 01/28/20 08:39 DC 01/28/20 08:15 Lidocaine (Lidoderm Patch) 2 patch DAILY TD 01/28/20 09:00 01/29/20 08:00 DC 01/29/20 06:11 Lidocaine (Lidoderm Patch) 2 patch DAILY@0500 TD 01/30/20 05:00 02/06/20 06:29 Lorazepam (Ativan) 0.5 mg Q8HP PRN PO ANXIETY 01/28/20 08:30 02/02/20 06:00 DC Losartan Potassium (Cozaar) 100 mg DAILY PO 01/27/20 09:00 02/06/20 08:50 Miscellaneous (Unresolved Patient Own Med Order) SEE LABEL COMMENTS DAILY XX 01/30/20 09:00 01/31/20 14:13 DC Multivitamins (Theragram-M) 1 tab DAILY PO 01/27/20 09:00 02/06/20 08:48 Nitroglycerin (Nitrostat (1/ 150)) 0.4 mg ASDIRECTED PRN SL CHEST PAIN 01/26/20 16:00 Non-Formulary Medication ( See Comment Field Below ) REMOVE LIDODERM PATCH DAILY@21 XX 01/28/20 21:00 02/04/20 21:33 Non-Formulary Medication ( See Comment Field Below ) REMOVE LIDODERM PATCH DAILY@21 XX 01/26/20 21:00 01/28/20 08:39 DC 01/27/20 20:11 Nystatin (Mycostatin Powder, Nystop) may sprinkle over ba... DAILY TOP 01/28/20 09:00 02/05/20 08:32 Nystatin (Mycostatin) apply to groin and perin... DAILY TOP 01/26/20 18:00 02/06/20 09:02 Oxycodone HCl (OxyCONTIN) 5 mg BID PRN PO PAIN LEVEL 7-10 01/29/20 07:00 01/29/20 07:57 DC Oxycodone HCl (OxyCONTIN) 10 mg BID PO 01/28/20 21:00 01/29/20 07:05 DC 01/28/20 20:07 Oxycodone HCl (Roxicodone, Oxyir) 5 mg DAILY@0800 PO 01/29/20 08:00 02/04/20 11:01 DC 02/04/20 07:34 Oxycodone HCl (Roxicodone, Oxyir) 5 mg Q6H PRN PO MILD/MODERATE PAIN (PS 1-7) 01/28/20 08:00 01/28/20 08:31 DC Oxycodone HCl (Roxicodone, Oxyir) 5 mg Q6H PRN PO BREAKTHROUGH PAIN 01/28/20 08:30 01/29/20 07:05 DC Oxycodone HCl (Roxicodone, Oxyir) 5 mg Q6HP PRN PO PAIN LEVEL 4-7 01/29/20 07:00 02/04/20 11:03 DC 02/03/20 20:36 Oxycodone HCl (Roxicodone, Oxyir) 5 mg Q8HP PRN PO PAIN LEVEL 4-7 02/04/20 11:15 02/06/20 13:40 DC 02/06/20 11:10 Oxycodone HCl (Roxicodone, Oxyir) 10 mg Q4H PRN PO SEVERE PAIN (PS 8-10) 01/27/20 09:15 01/28/20 08:48 DC 01/28/20 07:01 Oxycodone/ Acetaminophen (Percocet 5mg/ 325mg Tablet) 1 tab Q6HP PRN PO PAIN LEVEL 6-10 02/06/20 13:45 Pantoprazole Sodium (Protonix) 40 mg DAILY PO 01/27/20 09:00 02/06/20 08:52 Patient Own Medication (Patient'S Own Med) testosterone 2.5 g pack... DAILY TOP 01/31/20 09:00 01/31/20 14:06 DC Patient Own Medication (Pt Own Med *Controlled Subst*) Hazardous agent (NIOSH 2,016 [gr... DAILY TOP 02/01/20 09:00 02/06/20 09:01 Polyethylene Glycol (Miralax) 1 pkt DAILY PO 01/27/20 09:00 02/06/20 08:51 Pramipexole Dihydrochloride (Mirapex) 0.5 mg BID PO 01/26/20 21:00 01/28/20 08:47 DC 01/28/20 08:14 Pramipexole Dihydrochloride (Mirapex) 0.5 mg BID@0600,2100 PO 01/28/20 21:00 02/06/20 06:29 Rosuvastatin Calcium (Crestor) 40 mg QHS PO 01/26/20 21:00 02/05/20 21:35 Salmeterol Xinafoate/ Fluticasone (Advair Hfa 230/ ) 2 puff RBID INH 01/26/20 20:00 02/06/20 07:16 Senna (Senokot) 1 tab QHS PO 01/26/20 21:00 02/03/20 20:34 Sertraline HCl (Zoloft) 150 mg DAILY PO 01/27/20 09:00 02/06/20 08:49 Sodium Chloride (Saline Lock Flush) 10 ml ASDIRECTED PRN IV SEE LABEL COMMENTS 01/26/20 17:45 02/04/20 05:04 Sodium Chloride (Saline Lock Flush) 10 ml PICC IV 01/26/20 18:00 02/06/20 06:30 Tamsulosin HCl (Flomax) 0.4 mg DAILY PO 01/27/20 09:00 02/06/20 08:53 Thiamine HCl (Thiamine HCl) 100 mg DAILY PO 01/27/20 09:00 02/06/20 08:51 Tizanidine HCl (Zanaflex) 2 mg Q8HP PRN PO BACK PAIN 01/26/20 17:15 01/27/20 07:04 DC 01/27/20 00:45 Tizanidine HCl (Zanaflex) 2 mg Q8HP PRN PO BACK PAIN 01/26/20 17:15 01/26/20 17:27 DC Tramadol HCl (Ultram) 50 mg Q6H PRN PO PAIN 01/26/20 18:00 01/27/20 07:01 DC 01/27/20 05:14 Tramadol HCl (Ultram) 75 mg Q6H PRN PO PAIN 01/27/20 12:00 01/28/20 08:36 DC 01/28/20 06:26 Vitamin D (Vitamin D) 5,000 units DAILY PO 01/27/20 09:00 02/06/20 08:48 FATMATA DHALIWAL MD Feb 06, 2020 14:07
[2020-02-06 15:32] LABS: BASO # 0.1 10^3/uL (0.0-0.2); BASO % 1.1 % (0.0-1.0); EOS # 0.1 10^3/uL (0.0-0.5); EOS % 1.1 % (0.0-3.0); HEMATOCRIT 34.9 % (42.0-52.0); HEMOGLOBIN 10.4 g/dl (13.5-17.5); LYMPH # 0.9 10^3/uL (1.5-5.0); LYMPH % 9.1 % (24.0-44.0); MEAN CORPUSCULAR HEMOGLOBIN 22.8 pg (27.0-33.0); MEAN CORPUSCULAR HGB CONC 29.8 g/dl (32.0-36.5); MEAN CORPUSCULAR VOLUME 76.4 fl (80.0-96.0); MONO # 0.6 10^3/uL (0.0-0.8); MONO % 6.2 % (0.0-5.0); NEUTROPHILS # 7.6 10^3/uL (1.5-8.5); NEUTROPHILS % 82.1 % (36.0-66.0); PLATELET COUNT, AUTOMATED 497 10^3/uL (150-450); RED BLOOD COUNT 4.57 10^6/uL (4.30-6.10); WHITE BLOOD COUNT 9.3 10^3/uL (4.0-10.0)
[2020-02-06 16:07] LABS: ALBUMIN 3.1 GM/DL (3.2-5.2); ALT/SGPT 136 U/L (12-78); BILIRUBIN,TOTAL 0.2 MG/DL (0.2-1.0); BLOOD UREA NITROGEN 22 MG/DL (7-18); CALCIUM LEVEL 8.9 MG/DL (8.8-10.2); CARBON DIOXIDE LEVEL 28 MEQ/L (21-32); CHLORIDE LEVEL 105 MEQ/L (98-107); CREATININE FOR GFR 0.87 MG/DL (0.70-1.30); GLOMERULAR FILTRATION RATE > 60.0 (>42); GLUCOSE, FASTING 205 MG/DL (70-100); POTASSIUM SERUM 4.3 MEQ/L (3.5-5.1); SODIUM LEVEL 140 MEQ/L (136-145); TOTAL PROTEIN 7.2 GM/DL (6.4-8.2)
[2020-02-06] MEDS: VITAMIN E 400 INTERNATIONAL UNITS CAP PO SCH (17:24)
[2020-02-06] MEDS: ASCORBIC ACID 500 MG TAB PO SCH (18:31)
[2020-02-06 19:58] VITALS: BP_SYST 153; BP_SYST 168; BP_DIAS 73
[2020-02-06] MEDS: ROSUVASTATIN 10 MG TAB (CRESTOR) PO SCH (20:27)
[2020-02-06] MEDS: BACLOFEN 5MG PER 1/2 TABLET PO SCH (20:28)
[2020-02-06] MEDS: SENNA 8.6 MG TAB (SENOKOT) PO SCH (20:28)
[2020-02-06] MEDS: EZETIMIBE 10 MG TAB (ZETIA) PO SCH (20:28)
[2020-02-06] MEDS: cefTRIAXone SOD 2 GM in D5W MINI-BAG PLUS 50 ML IV SCH (20:29)
[2020-02-06] MEDS: **NOTE PATIENT COMMENT** MISC XX SCH (20:29)
[2020-02-07] MEDS: PRAMIPEXOLE 0.25 MG TAB PO SCH ×2 (05:19→20:21)
[2020-02-07] MEDS: LIDOCAINE 5% (LIDODERM) PATCH TD SCH (05:20)
[2020-02-07] MEDS: LEVOTHYROXINE 100MCG TABLET (0.1MG) PO SCH (05:20)
[2020-02-07] MEDS: ACETAMINOPHEN 650MG ER TAB (TYLENOL ARTHRITIS) PO SCH ×3 (05:20→20:21)
[2020-02-07] MEDS: SODIUM CHLORIDE 0.9% INJ 10 ML SYR IV SCH ×2 (05:21→16:56)
[2020-02-07 05:42] VITALS: BP 178/90
[2020-02-07] MEDS: amLODIPine 5 MG TAB PO SCH (06:03)
[2020-02-07] MEDS: HumaLOG INSULIN (NovoLOG) PER UNIT SC SCH ×3 (07:23→16:55)
[2020-02-07 07:54] VITALS: BP 151/70
[2020-02-07] MEDS: FUROSEMIDE 20 MG TAB PO SCH (07:56)
[2020-02-07] MEDS: MULTIVITAMINS/MINERALS THERAP 1 TAB PO SCH (07:56)
[2020-02-07] MEDS: FOLIC ACID 1 MG TAB PO SCH (07:56)
[2020-02-07] MEDS: MIRALAX *UNIT DOSE* 17GM PACKET PO SCH (07:56)
[2020-02-07] MEDS: TAMSULOSIN 0.4 MG CAP PO SCH (07:56)
[2020-02-07] MEDS: APIXABAN 5 MG TAB (ELIQUIS) PO SCH ×2 (07:57→20:21)
[2020-02-07] MEDS: ASCORBIC ACID 500 MG TAB PO SCH ×2 (07:57→17:48)
[2020-02-07] MEDS: oxyCODONE 5MG TAB PO PRN ×2 (07:58→20:22)
[2020-02-07] MEDS: LOSARTAN 50MG TABLET PO SCH (07:59)
[2020-02-07] MEDS: SERTRALINE 100 MG TAB PO SCH (07:59)
[2020-02-07] MEDS: HYDROCORTISONE 10 MG TAB PO SCH ×2 (08:00→12:14)
[2020-02-07] MEDS: VITAMIN E 400 INTERNATIONAL UNITS CAP PO SCH (08:00)
[2020-02-07] MEDS: THIAMINE 100 MG TAB PO SCH (08:01)
[2020-02-07] MEDS: VITAMIN D 1,000 INTERNATIONAL UNITS TABLET PO SCH (08:01)
[2020-02-07] MEDS: BACLOFEN 10 MG TAB PO SCH ×2 (08:01→20:21)
[2020-02-07] MEDS: DOCUSATE SODIUM 100 MG CAP PO SCH ×2 (08:01→20:21)
[2020-02-07] MEDS: NYSTATIN CREAM 15 GM TOP SCH (08:07)
[2020-02-07] MEDS: NYSTATIN 100,000 UNITS/GM TOPICAL PWD 15 GM TOP SCH (08:07)
[2020-02-07] MEDS: PANTOPRAZOLE 40MG TAB (PROTONIX) PO SCH (08:08)
[2020-02-07] MEDS: TESTIM TOP SCH (08:09)
[2020-02-07] MEDS: ADVAIR HFA 230/21MCG INHALER INH SCH ×2 (08:27→19:17)
[2020-02-07 14:00] VITALS: BP 126/59
[2020-02-07 20:05] VITALS: BP 123/62
[2020-02-07] MEDS: SENNA 8.6 MG TAB (SENOKOT) PO SCH (20:21)
[2020-02-07] MEDS: ROSUVASTATIN 10 MG TAB (CRESTOR) PO SCH (20:21)
[2020-02-07] MEDS: EZETIMIBE 10 MG TAB (ZETIA) PO SCH (20:21)
[2020-02-07] MEDS: BACLOFEN 5MG PER 1/2 TABLET PO SCH (20:21)
[2020-02-07] MEDS: cefTRIAXone SOD 2 GM in D5W MINI-BAG PLUS 50 ML IV SCH (20:22)
[2020-02-07] MEDS: **NOTE PATIENT COMMENT** MISC XX SCH (20:22)
[2020-02-07] MEDS: SODIUM CHLORIDE 0.9% INJ 10 ML SYR IV PRN (21:01)
[2020-02-08] MEDS: PRAMIPEXOLE 0.25 MG TAB PO SCH ×2 (05:00→20:13)
[2020-02-08] MEDS: LEVOTHYROXINE 100MCG TABLET (0.1MG) PO SCH (05:00)
[2020-02-08] MEDS: ACETAMINOPHEN 650MG ER TAB (TYLENOL ARTHRITIS) PO SCH ×3 (05:00→20:13)
[2020-02-08] MEDS: LIDOCAINE 5% (LIDODERM) PATCH TD SCH (05:01)
[2020-02-08] MEDS: SODIUM CHLORIDE 0.9% INJ 10 ML SYR IV SCH ×2 (05:01→17:11)
[2020-02-08] MEDS: SODIUM CHLORIDE 0.9% INJ 10 ML SYR IV PRN (05:02)
[2020-02-08] MEDS: oxyCODONE 5MG TAB PO PRN (05:03)
[2020-02-08 06:00] VITALS: BP 137/84
[2020-02-08] MEDS: HumaLOG INSULIN (NovoLOG) PER UNIT SC SCH ×3 (07:06→17:10)
[2020-02-08] MEDS: MULTIVITAMINS/MINERALS THERAP 1 TAB PO SCH (07:24)
[2020-02-08] MEDS: amLODIPine 5 MG TAB PO SCH (07:26)
[2020-02-08] MEDS: THIAMINE 100 MG TAB PO SCH (07:26)
[2020-02-08] MEDS: APIXABAN 5 MG TAB (ELIQUIS) PO SCH ×2 (07:26→20:13)
[2020-02-08] MEDS: TESTIM TOP SCH (07:26)
[2020-02-08] MEDS: TAMSULOSIN 0.4 MG CAP PO SCH (07:27)
[2020-02-08] MEDS: FUROSEMIDE 20 MG TAB PO SCH (07:27)
[2020-02-08] MEDS: HYDROCORTISONE 10 MG TAB PO SCH ×2 (07:27→12:01)
[2020-02-08] MEDS: DOCUSATE SODIUM 100 MG CAP PO SCH ×2 (07:27→20:13)
[2020-02-08] MEDS: PANTOPRAZOLE 40MG TAB (PROTONIX) PO SCH (07:27)
[2020-02-08] MEDS: LOSARTAN 50MG TABLET PO SCH ×2 (07:27→20:14)
[2020-02-08] MEDS: VITAMIN E 400 INTERNATIONAL UNITS CAP PO SCH (07:27)
[2020-02-08] MEDS: VITAMIN D 1,000 INTERNATIONAL UNITS TABLET PO SCH (07:27)
[2020-02-08] MEDS: SERTRALINE 100 MG TAB PO SCH (07:28)
[2020-02-08] MEDS: BACLOFEN 10 MG TAB PO SCH ×2 (07:28→20:13)
[2020-02-08] MEDS: ASCORBIC ACID 500 MG TAB PO SCH ×2 (07:28→17:10)
[2020-02-08] MEDS: FOLIC ACID 1 MG TAB PO SCH (07:28)
[2020-02-08] MEDS: MIRALAX *UNIT DOSE* 17GM PACKET PO SCH (07:28)
[2020-02-08] MEDS: NYSTATIN CREAM 15 GM TOP SCH (07:30)
[2020-02-08] MEDS: NYSTATIN 100,000 UNITS/GM TOPICAL PWD 15 GM TOP SCH (07:30)
[2020-02-08] MEDS: ADVAIR HFA 230/21MCG INHALER INH SCH ×2 (07:47→20:28)
[2020-02-08 14:00] VITALS: BP 142/72
[2020-02-08 20:00] VITALS: BP 138/71
[2020-02-08] MEDS: ROSUVASTATIN 10 MG TAB (CRESTOR) PO SCH (20:13)
[2020-02-08] MEDS: BACLOFEN 5MG PER 1/2 TABLET PO SCH (20:13)
[2020-02-08] MEDS: EZETIMIBE 10 MG TAB (ZETIA) PO SCH (20:13)
[2020-02-08] MEDS: SENNA 8.6 MG TAB (SENOKOT) PO SCH (20:13)
[2020-02-08] MEDS: **NOTE PATIENT COMMENT** MISC XX SCH (20:14)
[2020-02-08] MEDS: cefTRIAXone SOD 2 GM in D5W MINI-BAG PLUS 50 ML IV SCH (20:14)
[2020-02-09 06:00] VITALS: BP 132/70
[2020-02-09] MEDS: LEVOTHYROXINE 100MCG TABLET (0.1MG) PO SCH (06:02)
[2020-02-09] MEDS: ACETAMINOPHEN 650MG ER TAB (TYLENOL ARTHRITIS) PO SCH ×2 (06:02→14:19)
[2020-02-09] MEDS: PRAMIPEXOLE 0.25 MG TAB PO SCH (06:02)
[2020-02-09] MEDS: LIDOCAINE 5% (LIDODERM) PATCH TD SCH (06:02)
[2020-02-09] MEDS: SODIUM CHLORIDE 0.9% INJ 10 ML SYR IV SCH ×2 (06:03→17:06)
[2020-02-09] MEDS: SODIUM CHLORIDE 0.9% INJ 10 ML SYR IV PRN (06:04)
[2020-02-09] MEDS: HumaLOG INSULIN (NovoLOG) PER UNIT SC SCH ×3 (07:30→17:05)
[2020-02-09] MEDS: ADVAIR HFA 230/21MCG INHALER INH SCH (07:59)
[2020-02-09 08:19] LABS: ALBUMIN 3.1 GM/DL (3.2-5.2); ALT/SGPT 94 U/L (12-78); BILIRUBIN,TOTAL 0.4 MG/DL (0.2-1.0); BLOOD UREA NITROGEN 20 MG/DL (7-18); CALCIUM LEVEL 8.9 MG/DL (8.8-10.2); CARBON DIOXIDE LEVEL 29 MEQ/L (21-32); CHLORIDE LEVEL 105 MEQ/L (98-107); CREATININE FOR GFR 0.77 MG/DL (0.70-1.30); GLOMERULAR FILTRATION RATE > 60.0 (>42); GLUCOSE, FASTING 90 MG/DL (70-100); POTASSIUM SERUM 4.3 MEQ/L (3.5-5.1); SODIUM LEVEL 141 MEQ/L (136-145); TOTAL PROTEIN 7.2 GM/DL (6.4-8.2)
[2020-02-09] MEDS: MIRALAX *UNIT DOSE* 17GM PACKET PO SCH (08:19)
[2020-02-09] MEDS: FOLIC ACID 1 MG TAB PO SCH (08:21)
[2020-02-09] MEDS: MULTIVITAMINS/MINERALS THERAP 1 TAB PO SCH (08:21)
[2020-02-09] MEDS: DOCUSATE SODIUM 100 MG CAP PO SCH (08:21)
[2020-02-09] MEDS: ASCORBIC ACID 500 MG TAB PO SCH ×2 (08:21→17:05)
[2020-02-09] MEDS: VITAMIN D 1,000 INTERNATIONAL UNITS TABLET PO SCH (08:21)
[2020-02-09] MEDS: PANTOPRAZOLE 40MG TAB (PROTONIX) PO SCH (08:21)
[2020-02-09] MEDS: TAMSULOSIN 0.4 MG CAP PO SCH (08:21)
[2020-02-09] MEDS: HYDROCORTISONE 10 MG TAB PO SCH ×2 (08:22→12:42)
[2020-02-09] MEDS: SERTRALINE 100 MG TAB PO SCH (08:22)
[2020-02-09] MEDS: APIXABAN 5 MG TAB (ELIQUIS) PO SCH (08:22)
[2020-02-09] MEDS: FUROSEMIDE 20 MG TAB PO SCH (08:22)
[2020-02-09] MEDS: THIAMINE 100 MG TAB PO SCH (08:22)
[2020-02-09] MEDS: VITAMIN E 400 INTERNATIONAL UNITS CAP PO SCH (08:22)
[2020-02-09 08:23] VITALS: BP 121/57
[2020-02-09] MEDS: LOSARTAN 50MG TABLET PO SCH (08:23)
[2020-02-09] MEDS: BACLOFEN 10 MG TAB PO SCH (08:23)
[2020-02-09] MEDS: amLODIPine 5 MG TAB PO SCH (08:23)
[2020-02-09] MEDS: NYSTATIN CREAM 15 GM TOP SCH (08:24)
[2020-02-09] MEDS: NYSTATIN 100,000 UNITS/GM TOPICAL PWD 15 GM TOP SCH (08:25)
[2020-02-09] MEDS: TESTIM TOP SCH (08:29)
--- NOTE | 2020-02-09 08:49 | DS.PDOC ---
PM&R Discharge Summary Psych Rn Discharge Note DATE OF ADMISSION: Jan 26, 2020 at 14:55 DATE OF DISCHARGE: Feb 09, 2020 DISCHARGE DIAGNOSES: Low back pain with left-sided lower extremity pain OA spine with multilevel DDD and Lumbar Stenosis Discitis s/p Sepsis Spinal Osteomyelitis Polyradiculoneuropathy with Cauda Equina syndrome Encephalopathy. Group B strep bacteremia. Sleep apnea. Anemia. Diabetes last hemoglobin A1c 7.3 12/30/2019 Endocrine dysfunction s/p resection pituitary adenoma Hypothyroidism. History Hyponatremia. Atrial fibrillation. History of hematuria secondary to traumatic Ann placement. Essential hypertension. HLD. CAD s/p 2 prior stents Status posts hypoxemic respiratory failure. Tick bite Probable candidiasis Thrombocytosis PAST MEDICAL HISTORY: A. fib managed with Eliquis Depression. Anxiety. Diabetes. Adrenal insufficiency noted treated with hydrocortisone CAD s/p stent x 2 PAST SURGICAL HISTORY: Appendectomy. Brain surgery-reported pituitary adenoma with partial resection, residual, adrenal insufficiency. 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 He was seen in [facility] January 11. [place] to have infection secondary to group B strep, discharged home with with P.O. Keflex. He worsened and had severe AMS and was then seen at [facility] for severe back pain, delirium with white blood count of 14K, CT abdomen and pelvis showed signs concerning for discitis and he was transferred January 16 to [facility] for higher level of care. Ruled out for VT with negative troponins, incidental finding of 1.4 x 0.9 cm hypoechoic structure left kidney noted on ultrasound. Workup included MRI 01/17 revealed a T11-T12 discitis with prevertebral phlegmon versus abscess, lumbar biopsy performed. Additionally noted was severe degenerative disc disease T12- L4, L5, S1 with abnormal vertebral marrow signal T11-12, likely due to bone edema and infection, clumping of the cauda equina nerve roots and severe narrowing of the central canal due to disc bulge and posterior osteophytes, CT angiogram chest and chest x-ray noted for diffuse nonspecific prominence of pulmonary insufficiency. 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 ID recommended IV ceftriaxone for 14 days then Min dose reduction on January 31 for an additional 4 weeks. Picc line placed for maintaining IV Access. Discussed case with Mart Felix from [facility] who confirmed shift to 2G Q 24hr for 4 weeks which would go through 03/01. Patient admitted to acute rehabilitation 01.26.2020 for pain management, strengthening, endurance cognitive and safety issues while also managing complex medical issues. Pain management initially was challenging but improved along with increased exercise tolerance, fewer episodic mm spasms right upper trapezius/levator scap region, he found that icing helps prevent escalation at end of day. Experiences episodic hypersomnolence no further confusion as pain control , activity tolerance and sleep quality improved. Moving bowels regularly, no bladder issues. Heart rate and blood sugars have been stable and he is well versed in home exercise program, safety precautions to protect his healing spine. Thrombocytosis noted with Plt up to high of 856K 497 on DC. Creatinine stable at 0.77, LFTs elevated, improving by time of DC, noted for elevated AST high of 122, down to 60, ALT lila of 136 down to 94 with reduction in Tylenol and increased water. 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 Albumin slight improved to 3.1, good appetite and dietary choices, should replenish quickly. There have been some early AM spikes in blood pressure, improved after BP meds split to PM and AM dosing for Losartan. Pain primarily managed with alternating ice/heat packs, Baclofen, Lidoderm patches, Tylenol and occasional Oxycotin IR 1 or 2 a day, none in last 24hr. REVIEW OF SYSTEMS: The following is a completed review of systems and has been reviewed. Review of systems otherwise unremarkable. PAIN: mostly mid thoracic/right shoulder girdle now, minimal pain in Low back and lower extremities. EYES: double vision, uses prism glasses since brain surgery EARS, NOSE, & THROAT: No throat pain, or dysphagia, or rhinorrhea. CARDIOVASCULAR: Denies chest pain or palpitations. PULMONARY: Denies shortness of breath. GASTROINTESTINAL: no complaints GENITOURINARY: .no complaints MUSCULOSKELETAL: . markedly improving low back pain NEUROLOGICAL:. Status post recent episode of encephalopathy related to sepsis, clearing HEMATOLOGICAL: Anemic, fatigued SKIN: .Had Tick bite on presentation, no target lesions, improved interiginous rash PSYCHIATRIC: Reduction in anxiety, sleeping better. All other review of systems found to be negative. ALLERGIES: See Below MEDICATIONS: Reviewed, see below. OBJECTIVE: VITAL SIGNS: Please see below GENERAL: Pleasant, calm and communicative HEENT: Extraocular movements intact .No adenopathy or thyromegaly. Full cervical range of motion Tenderness with trigger points right upper cervicothoracic region, levator scapula CARDIOVASCULAR: S1 S2 regular LUNGS: Clear to auscultation bilaterally. No wheezes. No rhonchi. ABDOMEN: Soft, nontender, nondistended. Positive normal active bowel sounds. NEUROLOGICAL: Cranial nerves II through XII grossly intact. Sensation intact all 4 extremities. EXTREMITIES: 5/5 termination clerk, elbow flexion, elbow extension, knee extension, foot dorsiflexion, plantar flexion. Less tenderness CT/LS regions. SKIN: .Picc left inner arm. Skin over back warm, dry. FUNCTIONAL STATUS: Mod I for mobility, self care with set up. LABORATORY DATA: Reviewed. Please see below. last FBS 79 MICROBIOLOGY: Lymes negative 1. Ortho- T11-12 Discitis/osteomyelitis with probable cauda equina syndrome, DDD, Lumbar stenosis/listhesis s/p prior spine stabilization stable with nice recovery of Neuro function, continue IV Ceftriaxone begun 01/17 for 2 weeks confirmed with Francis that he is to be starting at an additional 4 weeks at reduced dose 2G/Q24hr through 12.14 2. - episodic hematuria, incidental finding of renal ?cysts, monitor UA and output 3. GI ppx- s/p constipation, possible mild neurogenic bowel component, continue laxatives episodic electrolyte imbalance Na improved, LFTS stable, related to healing and possibly meds. On steroids, at risk GI irritation. Have decreased Acetaminophen. Consider decrease pramipexole and Lasix that he came over on as an outpatient. 4. Skin-nystatin creme then powder, air out skin areas until cleared 5.Tick bite, no evidence CV or Neurological manifestations, negative for Lymes screen. DISPOSITION Home with , follow up with PMD, I.D. at [facility], Home health nursing PICC care and IV Antibiotics instruction/support, PT exercise program, home assessment, safety. TIME SPENT: Chart Review, examination and documentation 35 minutes. Vital Signs/I&O Vital Sign - Last 24 Hours 02/08/20 02/08/20 02/08/20 02/09/20 14:00 20:00 20:14 06:00 Temp 98.1 98.2 98.7 Pulse 64 68 67 Resp 18 18 18 B/P (MAP) 142/72 (95) 138/71 (93) 138/71 132/70 (90) Pulse Ox 96 98 96 O2 Delivery Room Air Room Air Room Air 02/09/20 08:23 B/P (MAP) 121/57 I&O- Last 24 Hours up to 6 AM 02/09/20 06:00 Intake Total 1780 ml Output Total 1100 ml Balance 680 ml Laboratory Data CBC/BMP Laboratory Tests 02/09/20 07:00 Labs 48H Laboratory Tests 02/07/20 11:29: Bedside Glucose (Misc Panel) 160H 02/07/20 16:38: Bedside Glucose (Misc Panel) 235H 02/07/20 19:37: Bedside Glucose (Misc Panel) 219H 02/08/20 05:38: Bedside Glucose (Misc Panel) 96 02/08/20 11:52: Bedside Glucose (Misc Panel) 173H 02/08/20 16:32: Bedside Glucose (Misc Panel) 248H 02/08/20 19:42: Bedside Glucose (Misc Panel) 135H 02/09/20 06:01: Bedside Glucose (Misc Panel) 79L 02/09/20 07:00: Sodium Level 141, Potassium Level 4.3, Chloride Level 105, Carbon Dioxide Level 29, Anion Gap 7L, Blood Urea Nitrogen 20H, Creatinine 0.77, Glomerular Filtration Rate > 60.0, Fasting Glucose 90, Calcium Level 8.9, Total Bilirubin 0.4#, Aspartate Amino Transf (AST/SGOT) 60H, Alanine Aminotransferase (ALT/SGPT) 94H, Alkaline Phosphatase 147H, Total Protein 7.2, Albumin 3.1L, Albumin/Globu blanca Ratio 0.8 FSBS Laboratory Tests Test 02/08/20 11:52 02/08/20 16:32 02/08/20 19:42 02/09/20 06:01 Range/Units Bedside Glucose (Misc Panel) 173 248 135 79 83-110 MG/DL Medications Medications Current Medications Medications (Trade) Dose Ordered Sig/Bishnu Route PRN Reason Start Time Stop Time Status Last Admin Dose Admin Acetaminophen (Tylenol Arthritis Er) 650 mg Q8H PO 02/06/20 14:00 02/09/20 06:02 Acetaminophen (Tylenol Arthritis Er) 1,300 mg Q8H PO 01/28/20 06:00 02/06/20 13:47 DC 02/06/20 06:29 Albuterol Sulfate (Proventil, Ventolin Hfa) 2 puff Q4H PRN INH SOB/WHEEZING 01/26/20 17:00 Amlodipine Besylate (Norvasc) 5 mg DAILY PO 01/27/20 09:00 02/09/20 08:23 Apixaban (Eliquis) 5 mg BID PO 01/26/20 21:00 02/09/20 08:22 Ascorbic Acid (Vitamin C) 500 mg BIDWM PO 02/06/20 18:00 02/09/20 08:21 Baclofen (Lioresal) 5 mg QHS PO 02/06/20 21:00 02/08/20 20:13 Baclofen (Lioresal) 10 mg BID PO 01/27/20 09:00 01/28/20 08:25 DC 01/28/20 08:14 Baclofen (Lioresal) 10 mg BID PO 01/29/20 09:00 02/09/20 08:23 Baclofen (Lioresal) 20 mg BID PO 01/28/20 21:00 01/29/20 07:05 DC 01/28/20 20:07 Bisacodyl (Dulcolax Suppository) 10 mg 3XWP PRN NC CONSTIPATION 01/30/20 09:00 Bisacodyl (Dulcolax Suppository) 10 mg DAILY PRN NC CONSTIPATION 01/27/20 09:00 01/30/20 09:08 DC Ceftriaxone Sodium 2 gm/ Dextrose 50 ml @ 100 mls/hr Q12H IV 01/26/20 16:00 02/03/20 14:18 DC 02/03/20 04:47 Ceftriaxone Sodium 2 gm/ Dextrose 50 ml @ 100 mls/hr Q12H IV 01/26/20 17:00 01/26/20 16:33 DC Ceftriaxone Sodium 2 gm/ Dextrose 50 ml @ 100 mls/hr QHS IV 02/03/20 21:00 03/02/20 20:59 02/08/20 20:14 Dextrose (Dextrose 50%) 25 ml ASDIRECTED PRN IV SEE LABEL COMMENTS 01/26/20 16:45 Docusate Sodium (Colace) 100 mg BID PO 01/26/20 21:00 02/09/20 08:21 EZETIMIBE (Zetia) 10 mg QHS PO 01/26/20 21:00 02/08/20 20:13 Folic Acid (Folic Acid) 1 mg DAILY PO 01/27/20 09:00 02/09/20 08:21 Furosemide (Lasix) 20 mg DAILY PO 01/27/20 09:00 02/09/20 08:22 Glucagon (Glucagon) 1 mg ASDIRECTED PRN SC SEE LABEL COMMENTS 01/26/20 16:45 Glucose (Glucose) 16 GM ASDIRECTED PRN PO SEE LABEL COMMENTS 01/26/20 16:45 Heparin Sodium (Heparin (Flush)) 200 units ASDIRECTED PRN IV SEE LABEL COMMENTS 01/26/20 17:45 02/09/20 06:04 Heparin Sodium (Heparin (Flush)) 200 units PICC IV 01/26/20 18:00 02/09/20 06:03 Home Med (Med Rec Complete!) ASDIRECTED XX 01/26/20 15:45 01/26/20 15:33 DC Hydrocortisone (Cortef) 10 mg DAILY@1200 PO 01/27/20 12:00 02/08/20 12:01 Hydrocortisone (Cortef) 15 mg QAM PO 01/27/20 09:00 02/09/20 08:22 Insulin Human Lispro (HumaLOG INSULIN) See Protocol Table AC SC 01/26/20 17:30 02/08/20 17:10 Levothyroxine Sodium (Synthroid) 200 mcg DAILY@0600 PO 01/27/20 06:00 02/09/20 06:02 Lidocaine (Lidoderm Patch) 1 patch DAILY TOP 01/27/20 09:00 01/28/20 08:39 DC 01/28/20 08:15 Lidocaine (Lidoderm Patch) 2 patch DAILY TD 01/28/20 09:00 01/29/20 08:00 DC 01/29/20 06:11 Lidocaine (Lidoderm Patch) 2 patch DAILY@0500 TD 01/30/20 05:00 02/09/20 06:02 Lorazepam (Ativan) 0.5 mg Q8HP PRN PO ANXIETY 01/28/20 08:30 02/02/20 06:00 DC Losartan Potassium (Cozaar) 50 mg BID PO 02/08/20 09:00 02/09/20 08:23 Losartan Potassium (Cozaar) 100 mg DAILY PO 01/27/20 09:00 02/08/20 07:09 DC 02/07/20 07:59 Miscellaneous (Unresolved Clarification Entry) SEE LABEL COMMENTS DAILY XX 02/08/20 09:00 02/08/20 11:16 DC Miscellaneous (Unresolved Patient Own Med Order) SEE LABEL COMMENTS DAILY XX 01/30/20 09:00 01/31/20 14:13 DC Multivitamins (Theragram-M) 1 tab DAILY PO 01/27/20 09:00 02/09/20 08:21 Nitroglycerin (Nitrostat (1/ 150)) 0.4 mg ASDIRECTED PRN SL CHEST PAIN 01/26/20 16:00 Non-Formulary Medication ( See Comment Field Below ) REMOVE LIDODERM PATCH DAILY@21 XX 01/28/20 21:00 02/08/20 20:14 Non-Formulary Medication ( See Comment Field Below ) REMOVE LIDODERM PATCH DAILY@21 XX 01/26/20 21:00 01/28/20 08:39 DC 01/27/20 20:11 Nystatin (Mycostatin Powder, Nystop) may sprinkle over ba... DAILY TOP 01/28/20 09:00 02/08/20 07:30 Nystatin (Mycostatin) apply to groin and perin... DAILY TOP 01/26/20 18:00 02/09/20 08:24 Oxycodone HCl (OxyCONTIN) 5 mg BID PRN PO PAIN LEVEL 7-10 01/29/20 07:00 01/29/20 07:57 DC Oxycodone HCl (OxyCONTIN) 10 mg BID PO 01/28/20 21:00 01/29/20 07:05 DC 01/28/20 20:07 Oxycodone HCl (Roxicodone, Oxyir) 5 mg DAILY@0800 PO 01/29/20 08:00 02/04/20 11:01 DC 02/04/20 07:34 Oxycodone HCl (Roxicodone, Oxyir) 5 mg Q6H PRN PO MILD/MODERATE PAIN (PS 1-7) 01/28/20 08:00 01/28/20 08:31 DC Oxycodone HCl (Roxicodone, Oxyir) 5 mg Q6H PRN PO BREAKTHROUGH PAIN 01/28/20 08:30 01/29/20 07:05 DC Oxycodone HCl (Roxicodone, Oxyir) 5 mg Q6HP PRN PO PAIN LEVEL 4-7 01/29/20 07:00 02/04/20 11:03 DC 02/03/20 20:36 Oxycodone HCl (Roxicodone, Oxyir) 5 mg Q8HP PRN PO PAIN LEVEL 4-7 02/04/20 11:15 02/06/20 13:40 DC 02/06/20 11:10 Oxycodone HCl (Roxicodone, Oxyir) 5 mg Q8HP PRN PO PAIN LEVEL 6-10 02/06/20 15:15 02/08/20 05:03 Oxycodone HCl (Roxicodone, Oxyir) 10 mg Q4H PRN PO SEVERE PAIN (PS 8-10) 01/27/20 09:15 01/28/20 08:48 DC 01/28/20 07:01 Oxycodone/ Acetaminophen (Percocet 5mg/ 325mg Tablet) 1 tab Q6HP PRN PO PAIN LEVEL 6-10 02/06/20 13:45 02/06/20 15:14 DC Pantoprazole Sodium (Protonix) 40 mg DAILY PO 01/27/20 09:00 02/09/20 08:21 Patient Own Medication (Patient'S Own Med) testosterone 2.5 g pack... DAILY TOP 01/31/20 09:00 01/31/20 14:06 DC Patient Own Medication (Pt Own Med *Controlled Subst*) Hazardous agent (NIOSH 2,016 [gr... DAILY TOP 02/01/20 09:00 02/09/20 08:29 Polyethylene Glycol (Miralax) 1 pkt DAILY PO 01/27/20 09:00 02/09/20 08:19 Pramipexole Dihydrochloride (Mirapex) 0.5 mg BID PO 01/26/20 21:00 01/28/20 08:47 DC 01/28/20 08:14 Pramipexole Dihydrochloride (Mirapex) 0.5 mg BID@0600,2100 PO 01/28/20 21:00 02/09/20 06:02 Rosuvastatin Calcium (Crestor) 40 mg QHS PO 01/26/20 21:00 02/08/20 20:13 Salmeterol Xinafoate/ Fluticasone (Advair Hfa 230/ 21) 2 puff RBID INH 01/26/20 20:00 02/09/20 07:59 Senna (Senokot) 1 tab QHS PO 01/26/20 21:00 02/08/20 20:13 Sertraline HCl (Zoloft) 150 mg DAILY PO 01/27/20 09:00 02/09/20 08:22 Sodium Chloride (Saline Lock Flush) 10 ml ASDIRECTED PRN IV SEE LABEL COMMENTS 01/26/20 17:45 02/09/20 06:04 Sodium Chloride (Saline Lock Flush) 10 ml PICC IV 01/26/20 18:00 02/09/20 06:03 Tamsulosin HCl (Flomax) 0.4 mg DAILY PO 01/27/20 09:00 02/09/20 08:21 Thiamine HCl (Thiamine HCl) 100 mg DAILY PO 01/27/20 09:00 02/09/20 08:22 Tizanidine HCl (Zanaflex) 2 mg Q8HP PRN PO BACK PAIN 01/26/20 17:15 01/27/20 07:04 DC 01/27/20 00:45 Tizanidine HCl (Zanaflex) 2 mg Q8HP PRN PO BACK PAIN 01/26/20 17:15 01/26/20 17:27 DC Tramadol HCl (Ultram) 50 mg Q6H PRN PO PAIN 01/26/20 18:00 01/27/20 07:01 DC 01/27/20 05:14 Tramadol HCl (Ultram) 75 mg Q6H PRN PO PAIN 01/27/20 12:00 01/28/20 08:36 DC 01/28/20 06:26 Vitamin D (Vitamin D) 5,000 units DAILY PO 01/27/20 09:00 02/09/20 08:21 Vitamin E (Vitamin E) 400 units DAILY PO 02/06/20 09:00 02/09/20 08:22 Scheduled Amlodipine Besylate (Amlodipine Besylate) 5 Mg Tablet, 5 MG PO DAILY, (Reported) Apixaban (Eliquis) 5 Mg Tablet, 5 MG PO BID, (Reported) Ceftriaxone in Is-Osm Dextrose (Ceftriaxone 2 gm-D5w Bag) 2 Gm/50 Ml Piggyback, 2 GM IV Q12H, (Reported) Cholecalciferol (Vitamin D3) (D3-2000) 50 Mcg Capsule, 50 MCG PO DAILY, (Reported) Docusate Sodium (Docusate Sodium) 100 Mg Capsule, 100 MG PO BID, (Reported) Empagliflozin (Jardiance) 10 Mg Tab, 10 MG PO DAILY, (Reported) Exenatide Microspheres (Bydureon) 2 Mg/0.65 Ml Pen.injctr, 2 MG SC 1XWK, (Reported) WEDNESDAYS Ezetimibe (Zetia) 10 Mg Tab, 10 MG PO QHS, (Reported) Flaxseed Oil (Flaxseed Oil) 1,000 Mg Capsule, 1,000 MG PO QHS, (Reported) Fluticasone Propion/Salmeterol (Advair Hfa 230-21 Mcg Inhaler) 12 Gm Hfa.aer.ad, 2 PUFF INH BID, (Reported) Folic Acid (Folic Acid) 1 Mg Tablet, 1 MG PO DAILY, (Reported) Furosemide (Furosemide) 20 Mg Tablet, 20 MG PO DAILY, (Reported) Hydrocortisone (Cortef) 10 Mg Tab, 10 MG PO DAILY, (Reported) @ NOON Hydrocortisone (Cortef) 10 Mg Tab, 15 MG PO QAM, (Reported) Levothyroxine Sodium (Synthroid) 200 Mcg Tablet, 200 MCG PO DAILY, (Reported) Lidocaine (Lidocaine) 5% Adh..patch, 1 PATCH TOP DAILY, (Reported) APPLY TO LOWER BACK Losartan Potassium (Losartan Potassium) 100 Mg Tablet, 100 MG PO DAILY, (Reported) Multivitamin (Multivitamins) 1 Each Capsule, 1 CAP PO DAILY, (Reported) Pantoprazole Sodium (Pantoprazole Sodium) 40 Mg Tablet.dr, 40 MG PO DAILY, (Reported) Pioglitazone HCl (Pioglitazone HCl) 15 Mg Tablet, 15 MG PO DAILY, (Reported) Polyethylene Glycol 3350 (Miralax) 119 Gm Powder, 17 GM PO DAILY, (Reported) dilute in 8 ounces of water or juice Pramipexole Di-HCl (Mirapex) 0.5 Mg Tablet, 0.5 MG PO BID, (Reported) Rosuvastatin Calcium (Crestor) 40 Mg Tab, 40 MG PO QHS, (Reported) Sennosides (Senna) 8.6 Mg Tablet, 16.2 MG PO QHS, (Reported) Sertraline HCl (Sertraline HCl) 100 Mg Tablet, 150 MG PO DAILY, (Reported) Testosterone (Testosterone) 2.5 Gm Gel.packet, 25 MG TD DAILY, (Reported) APPLY TO STOMACH Thiamine HCl (Thiamine HCl) 100 Mg Tablet, 100 MG PO DAILY, (Reported) Scheduled PRN Albuterol Sulfate (Ventolin Hfa) 18 Gm Hfa.aer.ad, 2 PUFF INH Q4H PRN for SOB/WHEEZING, (Reported) Bisacodyl (Bisacodyl) 10 Mg Supp.rect, 10 MG NC DAILY PRN for CONSTIPATION, (R eported) Nitroglycerin (Nitrostat) 0.4 Mg Subl, 0.4 MG SL NITRO PRN for CHEST PAIN, (Reported) Oxycodone HCl (Oxycodone HCl) 10 Mg Tablet, 10 MG PO Q4H PRN for SEVERE PAIN (PS 8-10), (Reported) GIVEN AT [facility] Tramadol HCl (Tramadol HCl) 50 Mg Tablet, 50 MG PO Q6H PRN for PAIN, (Reported) Allergies Coded Allergies: codeine (Verified Allergy, Intermediate, Rash, 01/17/20) gabapentin (Verified Adverse Reaction, Intermediate, JITTERY, 01/17/20) FATMATA DHALIWAL MD Feb 09, 2020 08:49
[2020-02-09] MEDS ORDERED: SLF IV ×2 (10:26)
[2020-02-09] MEDS ORDERED: HEPA100I9 IV ×2 (10:26)
[2020-02-09] MEDS ORDERED: BACL10TA2 PO ×2 (10:26)
[2020-02-09] MEDS ORDERED: VITA-259 PO (10:26)
[2020-02-09] MEDS ORDERED: ASCO50TA PO (10:26)
[2020-02-09] MEDS ORDERED: COZA50TA PO (10:26)
[2020-02-09] MEDS ORDERED: FLOM0.4C39 PO (10:26)
[2020-02-09] MEDS ORDERED: OXYC-517 PO (10:26)
[2020-02-09] MEDS ORDERED: ACE65ERTAB PO (10:26)
[2020-02-09] MEDS ORDERED: CEFT1INJ65 IV (10:26)
[2020-02-09] MEDS ORDERED: LIDO5TD TD (10:26)
[2020-02-09 14:00] VITALS: BP 114/58
[2020-02-09] MEDS: cefTRIAXone SOD 2 GM in D5W MINI-BAG PLUS 50 ML IV SCH (17:06)
== END 2020-02-09 18:15 | disposition home health service (06) | DRG 552 ==
LOC: M PM&R 14:55
PROVIDERS: ADMIT Physical Medicine & Rehabilitation; ATTEND Physical Medicine & Rehabilitation
DX: M46.44 Discitis, unspecified, thoracic region (principal); G93.40 Encephalopathy, unspecified; E27.40 Unspecified adrenocortical insufficiency; G83.4 Cauda equina syndrome; K59.2 Neurogenic bowel, not elsewhere classified; M48.061 Spinal stenosis, lumbar region without neurogenic claudication; K59.00 Constipation, unspecified; B37.2 Candidiasis of skin and nail; G47.30 Sleep apnea, unspecified; D64.9 Anemia, unspecified; R41.82 Altered mental status, unspecified; F32.9 Major depressive disorder, single episode, unspecified; E11.9 Type 2 diabetes mellitus without complications; E03.9 Hypothyroidism, unspecified; F41.9 Anxiety disorder, unspecified; R53.83 Other fatigue; I48.91 Unspecified atrial fibrillation; I10 Essential (primary) hypertension; E78.5 Hyperlipidemia, unspecified; I25.10 Atherosclerotic heart disease of native coronary artery without angina pectoris; Z95.5 Presence of coronary angioplasty implant and graft; Z79.01 Long term (current) use of anticoagulants; Z98.1 Arthrodesis status; Z88.8 Allergy status to other drugs, medicaments and biological substances; Z88.5 Allergy status to narcotic agent; Z79.899 Other long term (current) drug therapy

== ENCOUNTER → 2020-03-02 | Outpatient (CLI) | payer MEDICARE, OTHER ==
[~2020-03-02] MED LIST changes: +ACE65ERTAB PO; +AMLO1TAB24 PO; +ASCO50TA PO; +BACL10TA2 PO; +BISA10SU4 PR; +CEFT1INJ65 IV; +CEFT2INJ4 IV; +CEFTINJ2 IV; +DOCU100C16 PO; +FLOM0.4C39 PO; +FOLI1TAB11 PO; +FURO20TA2 PO; +HEPA100I9 IV; +LIDO5TD TD; +LOSA100T50 PO; +MIRA3350 PO; +MULTCAP PO; +OXYC-517 PO; +OXYC10TA12 PO; +PANT40TA29 PO; +PROHANCE 279.3MG/ML 15ML VIAL As Ordered ONE; +PROHANCE 279.3MG/ML 5ML VIAL As Ordered ONE; +SENN-80 PO; +SLF IV; +THIA100T7 PO; +VITA-259 PO; +VITA200012 PO
--- NOTE | 2020-03-02 11:51 | REPVR ---
PROCEDURE INFORMATION: Exam: MR Thoracic Spine Without and With Contrast Exam date and time: 03/02/2020 11:03 AM Age: 74 years old Clinical indication: Condition or disease; Other: Osteo mylitis discitis TECHNIQUE: Imaging protocol: Multiplanar magnetic resonance images of the thoracic spine without and with intravenous contrast. Contrast material: PROHANCE; Contrast volume: 17 ml; Contrast route: INTRAVENOUS (IV); COMPARISON: No relevant prior studies available. FINDINGS: Vertebrae: There is accentuation of the normal thoracic kyphosis distally. There is no fracture or listhesis. There are changes of discitis/osteomyelitis at T11/12 and T12/L1, with intervertebral enhancement and marrow edema and enhancement. Spinal cord: Normal signal. No cord compression. Discs/Spinal canal/Neural foramina: There is multilevel degenerative disc disease. At T9/10, disc bulge and facet hypertrophy contribute to mild right and [id number] left neural foraminal narrowing. At T10/11, diffuse disc bulge and moderate facet hypertrophy contribute to severe bilateral neural foraminal narrowing and moderate canal stenosis. At T11/12, diffuse disc osteophyte complex and moderate facet hypertrophy contribute to severe the bilateral neural foraminal narrowing and moderate canal stenosis. Soft tissues: Unremarkable. IMPRESSION: 1. Findings worrisome for discitis/osteomyelitis at T11/12 and T12/L1. 2. Degenerative disc disease and spondylosis. Electronically signed by: Valarie Quezada On 03/02/2020 11:51:53 AM
--- NOTE | 2020-03-02 12:04 | REPVR ---
PROCEDURE INFORMATION: Exam: MR Lumbar Spine Without and With Contrast. Exam date and time: 03/02/2020 11:03 AM Age: 74 years old Clinical indication: Condition or disease; Other: Discitis/osteomyelitis TECHNIQUE: Imaging protocol: Multiplanar magnetic resonance images of the lumbar spine without and with intravenous contrast. Contrast material: PROHANCE; Contrast volume: 17 ml; Contrast route: INTRAVENOUS (IV); COMPARISON: MRI-LS SPINE W/O FOLL WITH CON 12/16/2018 9:12 AM FINDINGS: Vertebrae: There is no acute fracture or listhesis. There are changes of discitis/osteomyelitis at T11/12 and T12/L1, with enhancement of the intervertebral disc space and adjacent marrow changes. There is severe intervertebral disc space loss at L2/3 and L3/4. Spinal cord: Normal signal. No cord compression. L1-L2: There is diffuse disc bulging. There is moderate facet hypertrophy. There is mild bilateral neural foraminal narrowing. L2-L3: There is a diffuse disc osteophyte complex. There is moderate facet hypertrophy. There is moderate to severe canal stenosis. There is wzjb-fb-hugczwbu right and mild left neural foraminal narrowing. L3-L4: There are left hemilaminectomy changes at L3/4. There is a diffuse disc osteophyte complex. There is moderate facet and ligamentous hypertrophy. There is pfvf-qm-okptfmcb right and moderate to severe left neural foraminal narrowing. L4-L5: There is diffuse disc bulging. There is moderate right and severe left facet hypertrophy. There is mild right and wxhp-ov-bugvcwuo left neural foraminal narrowing. L5-S1: There is dorsal spondylitic ridging. There is moderate facet hypertrophy. There is elpe-[id number] left neural foraminal narrowing. Soft tissues: Unremarkable. IMPRESSION: Unre findings worrisome for discitis/osteomyelitis at T11/12 and T12/L1. Electronically signed by: Valarie Quezada On 03/02/2020 12:03:53 PM
== END ==
LOC: M RAD 07:55
PROVIDERS: ATTEND Internal Medicine Infectious Disease
DX: M86.9 Osteomyelitis, unspecified (principal); G93.40 Encephalopathy, unspecified; Z79.2 Long term (current) use of antibiotics; M51.26 Other intervertebral disc displacement, lumbar region; M25.78 Osteophyte, vertebrae
CPT/HCPCS: 72157; 72158; A9576; J1642

== ENCOUNTER → 2020-05-19 | Outpatient (CLI) | payer MEDICARE, OTHER ==
[~2020-05-19] MED LIST changes: -PROHANCE 279.3MG/ML 15ML VIAL As Ordered ONE; -PROHANCE 279.3MG/ML 5ML VIAL As Ordered ONE
--- NOTE | 2020-05-19 13:32 | REPVR ---
PROCEDURE INFORMATION: Exam: MR Head Without Contrast Exam date and time: 05/19/2020 1:04 PM Age: 74 years old Clinical indication: Condition or disease; Other: Benign neoplasm, unspecified site TECHNIQUE: Imaging protocol: MR of the head without contrast. COMPARISON: MRI-Brain without Contrast 04/24/2019 8:53 AM FINDINGS: Brain: There is no extra-axial collection or intra-axial mass. There are scattered foci of T2/FLAIR white matter hyperintensity, nonspecific but typically small-vessel ischemia in this age group. There is no diffusion restriction. Cerebral ventricles: Normal. No ventriculomegaly. Pituitary gland and sella: As before, there is a large pituitary macroadenoma measuring 3.2 x 4.7 x 3.1 cm in AP, craniocaudad and transverse dimensions. There is suprasellar extension with compression and superior displacement of the optic chiasm. Laterally, there is extends into the cavernous sinuses and cavernous carotid arteries. This extends inferiorly into the sphenoid sinus and clivus. Bones/joints: Unremarkable. Paranasal sinuses: The paranasal sinuses are normally aerated. Mastoid air cells: Normal as visualized. No mastoid effusion. Orbital cavity: Unremarkable. Soft tissues: Unremarkable. IMPRESSION: Stable large pituitary macro adenoma. Electronically signed by: Valarie Quezada On 05/19/2020 13:32:11 PM
== END ==
LOC: M RAD 12:16
PROVIDERS: ATTEND Neurological Surgery
DX: D35.2 Benign neoplasm of pituitary gland (principal)

== ENCOUNTER 2020-05-28 15:40 | Emergency (ER) | payer MEDICARE, OTHER ==
[~2020-05-28] VITALS: Ht 175.3 cm; Wt 90.9 kg
[2020-05-28 15:48] VITALS: BP 163/80
--- NOTE | 2020-05-28 16:44 | REP ---
INDICATION: laceration to thumb COMPARISON: None. TECHNIQUE: AP, lateral, bilateral oblique views left hand. FINDINGS: Old injury involving the 3rd digit distal phalanx noted. Age-related degenerative changes to the hand and wrist. Soft tissue injury/laceration overlies the 1st digit distal phalanx and a very subtle nondisplaced fracture at the base of the distal phalanx cannot be excluded. IMPRESSION: Laceration overlies the 1st distal phalanx. Cannot exclude subtle nondisplaced fracture at the base of the 1st digit distal phalanx. <Electronically signed by Daniel Hernández > 05/28/20 [id number]
[2020-05-28] MEDS ORDERED: LIDOCAINE 1% MDV 20ML VIAL SC ONE (17:00)
[2020-05-28] MEDS ORDERED: CEPH500C PO (19:22)
--- NOTE | 2020-05-31 12:36 | ED PDOC ---
Post-Departure Follow-Up certified letter sent to pt re formal read of left hand film. ? open fracture. P lease refer to dr ortiz and ensure pt is aware formal report states ? fracture. Fax xray to Dr Ortiz office Mercedes Irving MD May 31, 2020 12:36
== END 2020-05-28 19:44 | disposition home or self-care (01) ==
LOC: M ED 15:40
DX: S61.012A Laceration without foreign body of left thumb without damage to nail, initial encounter (principal); R20.0 Anesthesia of skin; W31.2XXA Contact with powered woodworking and forming machines, initial encounter; Y92.098 Other place in other non-institutional residence as the place of occurrence of the external cause; Y93.H3 Activity, building and construction; E11.9 Type 2 diabetes mellitus without complications; E03.9 Hypothyroidism, unspecified; E78.5 Hyperlipidemia, unspecified; I25.2 Old myocardial infarction; Z98.61 Coronary angioplasty status; Z88.5 Allergy status to narcotic agent; Z88.8 Allergy status to other drugs, medicaments and biological substances; Z79.899 Other long term (current) drug therapy; Z79.01 Long term (current) use of anticoagulants

== ENCOUNTER → 2020-12-10 | Outpatient (CLI) | payer MEDICARE, OTHER ==
--- NOTE | 2020-12-10 12:45 | REP ---
INDICATION: HEART FAILURE, UNSPECIFIED/ LABS 1ST, XR 2ND. COMPARISON: Comparison chest x-ray January 17, 2020. TECHNIQUE: Two views.. FINDINGS: The lungs are well inflated and free of infiltrate. The pleural angles are sharp. The heart size is normal. Pulmonary vasculature is not increased. No significant bony abnormality is seen. IMPRESSION: Negative chest x-ray. <Electronically signed by Steven Fofana > 12/10/20 [id number]
[2020-12-10 13:06] LABS: HEMATOCRIT 50.2 % (42.0-52.0); HEMOGLOBIN 15.9 g/dl (13.5-17.5); MEAN CORPUSCULAR HEMOGLOBIN 29.4 pg (27.0-33.0); MEAN CORPUSCULAR HGB CONC 31.7 g/dl (32.0-36.5); MEAN CORPUSCULAR VOLUME 92.8 fl (80.0-96.0); PLATELET COUNT, AUTOMATED 198 10^3/uL (150-450); RED BLOOD COUNT 5.41 10^6/uL (4.30-6.10); WHITE BLOOD COUNT 6.5 10^3/uL (4.0-10.0)
[2020-12-10 13:45] LABS: BLOOD UREA NITROGEN 20 MG/DL (7-18); CALCIUM LEVEL 8.7 MG/DL (8.8-10.2); CARBON DIOXIDE LEVEL 28 MEQ/L (21-32); CHLORIDE LEVEL 108 MEQ/L (98-107); CREATININE FOR GFR 0.91 MG/DL (0.70-1.30); GLOMERULAR FILTRATION RATE > 60.0 (>42); GLUCOSE, FASTING 153 MG/DL (70-100); MAGNESIUM LEVEL 2.3 MG/DL (1.8-2.4); NT-PRO BNP 148 PG/ML (<125); POTASSIUM SERUM 4.4 MEQ/L (3.5-5.1); SODIUM LEVEL 143 MEQ/L (136-145)
== END ==
LOC: M LAB 11:28
PROVIDERS: ATTEND Physician Assistant
DX: I50.9 Heart failure, unspecified (principal)

== ENCOUNTER → 2020-12-29 | Outpatient (CLI) | payer MEDICARE, OTHER ==
[2020-12-29 13:41] LABS: BLOOD UREA NITROGEN 29 MG/DL (7-18); CARBON DIOXIDE LEVEL 27 MEQ/L (21-32); CHLORIDE LEVEL 108 MEQ/L (98-107); CREATININE FOR GFR 0.97 MG/DL (0.70-1.30); GLOMERULAR FILTRATION RATE > 60.0 (>42); GLUCOSE, FASTING 223 MG/DL (70-100); MAGNESIUM LEVEL 2.1 MG/DL (1.8-2.4); NT-PRO BNP 144 PG/ML (<125); POTASSIUM SERUM 4.3 MEQ/L (3.5-5.1); SODIUM LEVEL 140 MEQ/L (136-145)
== END ==
LOC: M LAB 12:31
PROVIDERS: ATTEND Physician Assistant
DX: I50.9 Heart failure, unspecified (principal)

== ENCOUNTER → 2020-12-29 | Outpatient (CLI) | payer MEDICARE, OTHER ==
[2020-12-29 13:14] LABS: HEMATOCRIT 49.1 % (42.0-52.0); HEMOGLOBIN 15.7 g/dl (13.5-17.5); MEAN CORPUSCULAR HEMOGLOBIN 29.2 pg (27.0-33.0); MEAN CORPUSCULAR VOLUME 91.4 fl (80.0-96.0); PLATELET COUNT, AUTOMATED 170 10^3/uL (150-450); RED BLOOD COUNT 5.37 10^6/uL (4.30-6.10); WHITE BLOOD COUNT 6.5 10^3/uL (4.0-10.0)
[2020-12-29 13:44] LABS: ALBUMIN 3.9 GM/DL (3.2-5.2); ALT/SGPT 71 U/L (12-78); BILIRUBIN,TOTAL 0.6 MG/DL (0.2-1.0); BLOOD UREA NITROGEN 29 MG/DL (7-18); CARBON DIOXIDE LEVEL 28 MEQ/L (21-32); CHLORIDE LEVEL 108 MEQ/L (98-107); CHOLESTEROL LEVEL 145 MG/DL (<200); CHOLESTEROL RISK RATIO 2.101 (<5); CREATININE FOR GFR 0.94 MG/DL (0.70-1.30); GLOMERULAR FILTRATION RATE > 60.0 (>42); GLUCOSE, FASTING 214 MG/DL (70-100); HDL CHOLESTEROL 69 MG/DL (>40); LDL CHOLESTEROL 61 MG/DL (<100); NON-HDL-C 76 MG/DL; POTASSIUM SERUM 4.4 MEQ/L (3.5-5.1); SODIUM LEVEL 141 MEQ/L (136-145); THYROXINE (T4) 9.4 UG/DL (4.5-12.0); TOTAL PROTEIN 6.7 GM/DL (6.4-8.2); TRIGLYCERIDES LEVEL 74 MG/DL (<150)
[2020-12-29 13:53] LABS: TESTOSTERONE 106 NG/DL (241-827)
== END ==
LOC: M LAB 12:26
PROVIDERS: ATTEND Internal Medicine Endocrinology, Diabetes & Metabolism
DX: E11.9 Type 2 diabetes mellitus without complications (principal); I50.9 Heart failure, unspecified

== ENCOUNTER → 2021-03-07 | Outpatient (REF) | payer MEDICARE ==
[~2021-03-07] MED LIST changes: +LOSA100T45 PO; -LOSA100T50 PO; -OMEP-221 PO; +OMEP40CA5 PO
[2021-03-07 19:22] LABS: CREATININE, URINE 51.2 MG/DL; MALB URINE SIEMENS < 5.0 MG/L; MAU/CREAT RATIO 9.7 MCG/MG (0.0-30.0)
== END ==
LOC: M LAB REF 17:51
PROVIDERS: ATTEND Internal Medicine Endocrinology, Diabetes & Metabolism
DX: E11.9 Type 2 diabetes mellitus without complications (principal)

== ENCOUNTER → 2021-07-04 | Outpatient (CLI) | payer MEDICARE, OTHER | LOC: M PLAIMG 14:08 | PROVIDERS: ATTEND Neurological Surgery | DX: D36.9 Benign neoplasm, unspecified site (principal) ==

== ENCOUNTER → 2022-08-07 | Outpatient (CLI) | payer MEDICARE, OTHER ==
[~2022-08-07] MED LIST changes: -COZA50TA PO; -HEPA100I9 IV; +HEPAINJ4 IV; +LOSA-528 PO; -LOSA100T45 PO; +LOSA100T46 PO; +SENN-186 PO; -SENN-80 PO
== END ==
LOC: M RAD 09:04
PROVIDERS: ATTEND Neurological Surgery
DX: D36.9 Benign neoplasm, unspecified site (principal)

== ENCOUNTER → 2023-07-12 | Outpatient (CLI) | payer MEDICARE, OTHER ==
[~2023-07-12] MED LIST changes: +EZET10TA58 PO; +PROHANCE 279.3MG/ML 15ML VIAL ONE; +PROHANCE 279.3MG/ML 5ML VIAL ONE; -ZETI10TA16 PO
== END ==
LOC: M PLAIMG 11:31
PROVIDERS: ATTEND Physician Assistant Surgical
DX: M51.36 Other intervertebral disc degeneration, lumbar region (principal); M47.896 Other spondylosis, lumbar region; M48.061 Spinal stenosis, lumbar region without neurogenic claudication

== ENCOUNTER → 2023-07-12 | Outpatient (CLI) | payer MEDICARE, OTHER ==
[~2023-07-12] MED LIST changes: -PROHANCE 279.3MG/ML 15ML VIAL ONE; -PROHANCE 279.3MG/ML 5ML VIAL ONE
[2023-07-12 15:18] LABS: BASO # 0.1 10^3/uL (0.0-0.2); EOS # 0.2 10^3/uL (0.0-0.5); HEMATOCRIT 47.3 % (42.0-52.0); HEMOGLOBIN 14.5 g/dl (13.5-17.5); LYMPH # 1.4 10^3/uL (1.5-5.0); LYMPH % 17.2 % (24.0-44.0); MEAN CORPUSCULAR HEMOGLOBIN 24.8 pg (27.0-33.0); MEAN CORPUSCULAR HGB CONC 30.7 g/dl (32.0-36.5); MONO # 0.8 10^3/uL (0.0-0.8); MONO % 9.9 % (2.0-8.0); NEUTROPHILS # 5.6 10^3/uL (1.5-8.5); NEUTROPHILS % 69.7 % (36.0-66.0); PLATELET COUNT, AUTOMATED 231 10^3/uL (150-450); RED BLOOD COUNT 5.84 10^6/uL (4.30-6.10); WHITE BLOOD COUNT 8.1 10^3/uL (4.0-10.0)
[2023-07-12 15:25] LABS: ERYTHROCYTE SEDIMENTATION RATE 14 mm/hr (0-20)
[2023-07-12 15:43] LABS: BLOOD UREA NITROGEN 20 MG/DL (9-23); CREATININE FOR GFR 0.98 MG/DL (0.70-1.30); GLOMERULAR FILTRATION RATE > 60.0 (>42)
== END ==
LOC: M PLALAB 11:27
PROVIDERS: ATTEND Physician Assistant Surgical
DX: M51.36 Other intervertebral disc degeneration, lumbar region (principal)

== ENCOUNTER → 2023-08-02 | Outpatient (REF) | payer MEDICARE, OTHER | LOC: M LAB REF 10:14 | PROVIDERS: ATTEND Orthopaedic Surgery | DX: M46.46 Discitis, unspecified, lumbar region (principal) ==

== ENCOUNTER → 2023-08-03 | Outpatient (CLI) | payer MEDICARE, OTHER | LOC: M PLARAD 14:13 | PROVIDERS: ATTEND Internal Medicine Infectious Disease | DX: M46.20 Osteomyelitis of vertebra, site unspecified (principal); M46.46 Discitis, unspecified, lumbar region ==

== ENCOUNTER → 2024-02-05 | Outpatient (CLI) | payer MEDICARE, OTHER ==
[~2024-02-05] MED LIST changes: +LIDOCAINE 2% 100MG/5ML SDV (FOR ANES.) ONE; +PROHANCE 279.3MG/ML 15ML VIAL As Ordered ONE; +PROHANCE 279.3MG/ML 5ML VIAL As Ordered ONE; +ePHEDrine SULFATE 25 MG/5 ML(5MG/ML) SYRINGE ONE; +fentaNYL 100 MCG/2 ML INJECTION As Ordered ONE; +propofoL 200 MG/20 ML VIAL ONE
[2024-02-05 08:45] VITALS: TEMP 97.6
[2024-02-05 12:15] VITALS: BP 112/53; O2SAT 98
== END ==
LOC: M RADPRO 08:37
PROVIDERS: ATTEND Physical Medicine & Rehabilitation
DX: M47.897 Other spondylosis, lumbosacral region (principal); M54.2 Cervicalgia
CPT/HCPCS: 72156; 72158; A9576; J3010

== ENCOUNTER 2024-03-08 12:31 | Emergency (ER) | payer MEDICARE, OTHER ==
[~2024-03-08] VITALS: Ht 172.7 cm; Wt 85.5 kg
[~2024-03-08 12:31] MED LIST changes: -LIDOCAINE 2% 100MG/5ML SDV (FOR ANES.) ONE; -PROHANCE 279.3MG/ML 15ML VIAL As Ordered ONE; -PROHANCE 279.3MG/ML 5ML VIAL As Ordered ONE; -ePHEDrine SULFATE 25 MG/5 ML(5MG/ML) SYRINGE ONE; -fentaNYL 100 MCG/2 ML INJECTION As Ordered ONE; -propofoL 200 MG/20 ML VIAL ONE
[2024-03-08 12:37] VITALS: BP 131/60; TEMP 97; O2SAT 97
== END 2024-03-08 13:58 | disposition left against medical advice (07) ==
LOC: M ED 12:31
DX: Z53.21 Procedure and treatment not carried out due to patient leaving prior to being seen by health care provider (principal)